=== PATIENT | female | born 1995 | race Caucasian/White ===

== ENCOUNTER 2017-08-12 11:56 | Emergency (ER) | payer OTHER ==
[~2017-08-12] VITALS: Ht 167.6 cm; Wt 54.2 kg
[~2017-08-12 11:56] MED LIST: MEDR150I INJ
[2017-08-12 11:58] VITALS: TEMP 36.4; Ht 167.6 cm; Wt 54.2 kg
[2017-08-12] MEDS ORDERED: KETOROLAC TROMETHAMINE 30 MG/ML VIAL IV STA (12:12)
[2017-08-12] MEDS ORDERED: ONDANSETRON INJ 2 MG/ML 2 ML VIAL IV STA ×2 (12:12→14:19)
[2017-08-12] MEDS ORDERED: SODIUM CHLORIDE 0.9% 1000ML 1,000 ML IV STA (12:12)
--- NOTE | 2017-08-12 12:29 | EMERGENCY ROOM VISIT NOTE ---
History Report prepared by Jose Luis: Akhil Hooper Under the Supervision of: Dr. Jared Carpenter M.D. First contact with patient: 12:02 Chief Complaint: ABDOMINAL PAIN Stated Complaint: ABDOMINAL PAIN, BACK PAIN Nursing Triage Summary: pt reports she peeing blood last week has bilat upper abd pain this week. sent here from pcp History of Present Illness The patient is a 22 year old white female with a history of appendicitis who presents to the Emergency Room with complaints of hematuria and waxing and waning abdominal pains that began this past weekend, 5 days ago. The patient states that she first noticed some blood in her urine this past weekend, and then developed abdominal pain. She states that her abdominal pain is present in the upper quadrants bilaterally, and radiates into her back intermittently. She has also been very nauseous and felt fevers/chills last night with cold sweats. The pain is worsened with movement and palpation. Her last menstrual period was 2 days ago and normal. She has no history of kidney stones. The patient did visit with Eulogio Collins where a urine analysis showed blood present. Source of History: patient Onset: 5 days Position: abdomen (Upper), other () Timing: waxes/wanes Modifying Factors (Worsening): movement, other (palpation) Associated Symptoms: + fevers, + chills, + urinary symptoms (Hematuria) Review of Systems See HPI for pertinent positives and negatives. A total of ten systems were reviewed and were otherwise negative. Past Medical & Surgical Medical Problems: (1) No Known Active Medical Problems Family History Patient reports no known family medical history. Social History Smoking Status: Never Smoker Marital Status: single Housing Status: lives with family Occupation Status: student Current/Historical Medications Scheduled Control Pills ( Control Pills), 1 TAB PO DAILY Spironolactone (Aldactone), 50 MG PO DAILY Tramadol Hcl (Ultram), 50 MG PO Q8H Scheduled PRN Ondansetron Hcl (Zofran), 4 MG PO Q8H PRN for Nausea Allergies Coded Allergies: No Known Allergies (Unverified , 08/12/17) Physical Exam Vital Signs Date Time Temp Pulse Resp B/P (MAP) Pulse Ox O2 Delivery O2 Flow Rate FiO2 08/12/17 16:54 70 18 107/66 98 Room Air 08/12/17 15:20 93 18 123/82 94 Room Air 08/12/17 14:21 84 19 132/87 100 Room Air 08/12/17 13:16 71 08/12/17 13:15 80 12 129/89 100 Room Air 08/12/17 11:58 36.4 86 18 123/69 98 Nasal Cannula Physical Exam GENERAL: Awake, alert, well-appearing, NAD HENT: Normocephalic, atraumatic. EYES: Normal conjunctiva. Sclera non-icteric. NECK: Supple. No nuchal rigidity. FROM. RESPIRATORY: CTAB, no rhonchi, wheezing, crackles CARDIAC: RRR, no MRG ABDOMEN: Soft, Upper quadrant TTP, BS+, Negative Rogers's. MSK: No chest wall TTP, no LE edema, Bilateral CVA TTP. NEURO: GCS 15, CN 2-12 intact, moves all 4s on command SKIN: No rash or jaundice noted. Medical Decision & Procedures ER Provider Diagnostic Interpretation: Radiology results as stated below per my review and radiologist interpretation: CT SCAN OF THE ABDOMEN AND PELVIS WITH IV CONTRAST CLINICAL HISTORY: Hematuria. Flank pain. Upper abdominal pain. COMPARISON STUDY: Abdominal CT dated 10/31/2014. TECHNIQUE: Following the IV administration of 92 cc of Optiray 320, CT scan of the abdomen and pelvis is performed from the lung bases to the proximal femora. Images are reviewed in the axial, sagittal, and coronal planes. IV contrast was administered without complication. A dose lowering technique was utilized adhering to the principles of ALARA. CT DOSE: 267.34 mGy.cm FINDINGS: Lung bases: The heart is normal in size and without pericardial effusion. The lung bases are clear. Liver: The contrast-enhanced liver is normal in size, contour, and attenuation. There is no intrahepatic biliary ductal dilatation. The hepatic veins and portal veins are patent. Gallbladder: Unremarkable. Spleen: Normal in size and attenuation. Pancreas: Unremarkable. Adrenal glands: Unremarkable. Kidneys: The contrast enhanced kidneys are normal in size and without hydronephrosis. The kidneys enhance symmetrically. Abdominal vasculature: The abdominal aorta is normal in course and caliber. Bowel: There is moderate colonic fecal retention. No bowel obstruction is seen. The appendix is not identified and reported surgically absent. Peritoneum: There is no intraperitoneal free air or abdominal ascites. There is a small fat-containing umbilical hernia. A naval piercing is noted. Lymphadenopathy: None. Pelvic viscera: The bladder, uterus, and adnexa are normal as visualized. There are small bilateral ovarian follicles. A tampon is in place. Skeletal structures: No lytic or blastic lesions are seen. IMPRESSION: There are no acute infectious or inflammatory findings in the abdomen or pelvis. Electronically signed by: Torey Gill M.D. 08/12/2017 2:03 PM Dictated Date/Time: 08/12/2017 1:49 PM ULTRASOUND RIGHT UPPER QUADRANT ABDOMEN CLINICAL HISTORY: Right upper quadrant abdominal pain. COMPARISON STUDY: Abdominal CT dated 08/12/2017. TECHNIQUE: Real-time, grayscale, and color flow sonography of the right upper quadrant of the abdomen was performed. Images are reviewed in the transverse and longitudinal planes. FINDINGS: Liver: The liver is normal in size and echotexture. There is no intrahepatic biliary ductal dilatation. The main portal vein is patent. Gallbladder: The gallbladder is normal in appearance. No gallstones are identified. There is no gallbladder wall thickening or pericholecystic fluid. A sonographic Rogers's sign is reportedly absent. The common bile duct measures up to 0.3 cm in diameter. Pancreas: Visualized portions of the pancreatic head are normal in appearance. The majority of the pancreas was not well visualized. The splenic vein is patent. Right kidney: Survey images of the right kidney demonstrate normal size and echotexture. There is no hydronephrosis. Ascites: None. IMPRESSION: No acute sonographic abnormality is identified in the right upper quadrant. No gallstones are seen. Electronically signed by: Torey Gill M.D. 08/12/2017 4:24 PM Dictated Date/Time: 08/12/2017 4:22 PM Laboratory Results 08/12/17 12:22 Red Blood Count 4.18, Mean Corpuscular Volume 90.7, Mean Corpuscular Hemoglobin 31.6, Mean Corpuscular Hemoglobin Concent 34.8, Mean Platelet Volume 9.4, Neutrophils (%) (Auto) 46.2, Lymphocytes (%) (Auto) 42.5, Monocytes (%) (Auto) 8.7, Eosinophils (%) (Auto) 2.1, Basophils (%) (Auto) 0.3, Neutrophils # (Auto) 2.70, Lymphocytes # (Auto) 2.48, Monocytes # (Auto) 0.51, Eosinophils # (Auto) 0.12, Basophils # (Auto) 0.02 08/12/17 12:22 Test 08/12/17 12:22 08/12/17 13:00 White Blood Count 5.84 K/uL (4.8-10.8) Red Blood Count 4.18 M/uL (4.2-5.4) Hemoglobin 13.2 g/dL (12.0-16.0) Hematocrit 37.9 % (37-47) Mean Corpuscular Volume 90.7 fL (80-100) Mean Corpuscular Hemoglobin 31.6 pg (25-34) Mean Corpuscular Hemoglobin Concent 34.8 g/dl (32-36) Platelet Count 264 K/uL (130-400) Mean Platelet Volume 9.4 fL (7.4-10.4) Neutrophils (%) (Auto) 46.2 % Lymphocytes (%) (Auto) 42.5 % Monocytes (%) (Auto) 8.7 % Eosinophils (%) (Auto) 2.1 % Basophils (%) (Auto) 0.3 % Neutrophils # (Auto) 2.70 K/uL (1.4-6.5) Lymphocytes # (Auto) 2.48 K/uL (1.2-3.4) Monocytes # (Auto) 0.51 K/uL (0.11-0.59) Eosinophils # (Auto) 0.12 K/uL (0-0.5) Basophils # (Auto) 0.02 K/uL (0-0.2) RDW Standard Deviation 40.9 fL (36.4-46.3) RDW Coefficient of Variation 12.3 % (11.5-14.5) Immature Granulocyte % (Auto) 0.2 % Immature Granulocyte # (Auto) 0.01 K/uL (0.00-0.02) Anion Gap 7.0 mmol/L (3-11) Est Creatinine Clear Calc Drug Dose 81.9 ml/min Estimated GFR () 101.8 Estimated GFR (Non- 87.9 BUN/Creatinine Ratio 9.7 (10-20) Calcium Level 8.9 mg/dl (8.5-10.1) Total Bilirubin 0.3 mg/dl (0.2-1) Direct Bilirubin < 0.1 mg/dl (0-0.2) Aspartate Amino Transf (AST/SGOT) 17 U/L (15-37) Alanine Aminotransferase (ALT/SGPT) 17 U/L (12-78) Alkaline Phosphatase 36 U/L (45-117) Total Protein 7.7 gm/dl (6.4-8.2) Albumin 3.8 gm/dl (3.4-5.0) Lipase 251 U/L (73-393) Urine Color YELLOW Urine Appearance CLEAR (CLEAR) Urine pH 7.0 (4.5-7.5) Urine Specific [place] 1.018 (1.000-1.030) Urine Protein NEG (NEG) Urine Glucose (UA) NEG (NEG) Urine Ketones NEG (NEG) Urine Occult Blood NEG (NEG) Urine Nitrite NEG (NEG) Urine Bilirubin NEG (NEG) Urine Urobilinogen NEG (NEG) Urine Leukocyte Esterase NEG (NEG) Urine Test NEG (NEG) Laboratory results reviewed by me Medications Administered Medications (Trade) Dose Ordered Sig/Cale Route Start Time Stop Time Status Last Admin Dose Admin Ondansetron HCl (Zofran Inj) 4 mg NOW STAT IV 08/12/17 12:12 08/12/17 12:14 DC 08/12/17 13:01 4 MG Sodium Chloride 1,000 ml @ 999 mls/hr Q1H1M STAT IV 08/12/17 12:12 08/12/17 13:12 DC 08/12/17 13:01 999 MLS/HR Ketorolac Tromethamine (Toradol Inj) 30 mg NOW STAT IV 08/12/17 12:12 08/12/17 12:14 DC 08/12/17 13:01 30 MG Morphine Sulfate (MoRPHine SULFATE INJ) 4 mg NOW STAT IV 08/12/17 13:45 08/12/17 13:46 DC 08/12/17 14:15 4 MG Ondansetron HCl (Zofran Inj) 4 mg STK-MED ONCE .ROUTE 08/12/17 14:15 08/12/17 14:16 DC 08/12/17 14:15 4 MG Metoclopramide HCl (Reglan Inj) 10 mg NOW STAT IV. 08/12/17 14:56 08/12/17 14:57 DC 08/12/17 15:15 10 MG Famotidine (Pepcid Tab) 20 mg NOW ONCE PO 08/12/17 15:15 08/12/17 15:16 DC 08/12/17 15:15 20 MG Al Hydroxide/Mg Hydroxide (Maalox Susp) 30 ml STK-MED ONCE .ROUTE 08/12/17 15:12 08/12/17 15:13 DC 08/12/17 15:15 30 ML Lidocaine HCl (Viscous Lidocaine 2% Soln) 20 ml STK-MED ONCE .ROUTE 08/12/17 15:12 08/12/17 15:13 DC 08/12/17 15:15 20 ML ED Course 1206: The patient was evaluated in room A12B. A complete history and physical exam was performed. 1212: Ordered Toradol 30 mg IV, Sodium Chloride 1000 mL @ 999 mL/hr IV, Zofran 4 mg IV. 1345: Ordered Morphine Sulfate 4 mg IV. 1334: I checked on the patient at this time. She is not feeling any better. 1417: I checked on the patient. She if felling well. She will be PO challenged. 1419: Zofran 4 mg IV. 1642: I reevaluated the patient. Discussed results and discharge instructions: she verbalized understanding and agreement. The patient is ready for discharge. Medical Decision Differential diagnosis: Etiologies such as renal colic, appendicitis, diverticulitis, mesenteric ischemia, aortic pathology, infections, inflammatory bowel disease, PUD, biliary pathology, UTI, as well as others were entertained. Patient was seen and evaluated the bedside. Patient was [facility] at [facility] and was referred here. Patient has had some noted hematuria, flank pain, upper abdominal pain with associated nausea. Patient states that she completed her LMP approximate 2 days prior. Patient denies any recent trauma. Patient did have blood work completed, pain and nausea control, and CT the abdomen pelvis. Of note the patient did have a prior appendectomy. Patient's blood work is fairly unremarkable. White blood cell count was within normal limits. Patient has normal kidney function. Patient had a urinalysis that was negative for blood or infection. Urine test also negative. We discussed the results with the patient. I discussed with her that were not trying to realize and minimize her discomfort however there is nothing medical or surgical that requires her to stay in hospital. Given the fact that she is a fairly normal gallbladder at least on CT with no elevations in her LFTs or bilirubin I do not believe that she requires gallbladder ultrasound. Patient has a negative urine. Patient was able to tolerate p.o. Of note the patient denied any heavy lifting recent strains or sprains. Given the normal kidney function less likely rhabdo. Patient and family were still concerned about possible gallbladder disease even though the patient does not have elevated LFTs or any concerning signs seen on CT. The patient is also not fit the mold she is fairly thin and young. Patient did have a gallbladder ultrasound that showed no evidence of any cholelithiasis, choledocholithiasis, or cholecystitis. Patient was informed of these findings. Patient told she likely has a viral illness and should eat a bland diet and advance as tolerated. Patient was also given recommendations for outpatient and [id number] treatment. Patient was deemed suitable for outpatient follow-up and treatment at this time. Patient was given strict follow-up, discharge, and return precautions. All questions were answered. Patient was deemed suitable for outpatient follow- up at this time. Patient agreed with the plan of care and was safely discharged home. Medication Reconcilliation Current Medication List: was personally reviewed by me Blood Pressure Screening Patient's blood pressure: Normal blood pressure Impression Primary Impression: Flank pain Additional Impression: Abdominal pain Scribe Attestation The scribe's documentation has been prepared under my direction and personally reviewed by me in its entirety. I confirm that the note above accurately reflects all work, treatment, procedures, and medical decision making performed by me. Departure Information Dispostion Home / Self-Care Prescriptions Tramadol Hcl (ULTRAM) 50 Mg Tab 50 MG PO Q8H, #12 TAB PRN PAIN Prov: Jared Carpenter M.D. 08/12/17 Ondansetron Hcl (ZOFRAN) 4 Mg Tab 4 MG PO Q8H Y for Nausea, #12 TAB Prov: Jared Carpenter M.D. 08/12/17 Referrals Vivek Pena DO (PCP) Patient Instructions ED Flank Pain Uncertain Cause, My [facility] Additional Instructions Please return to the emergency department if you have worsening or recurrent symptoms not amenable to at-home treatment. Please call for a follow-up appointment with her primary care physician. Please take your medications as prescribed. If you have other concerns and/or complaints please feel free to also call your primary care physician's office or return the ED for further evaluation, management, and treatment. You received narcotic or benzodiazepene medication while in the emergency room today. This is an addictive medication that may cause drowziness as well as constipation. Do not drive, operate heavy machinery, or drink alcohol under the influence of this medication. You may take 600 mg Ibuprofen every 6 hours as needed for pain with food for no more than 2 consecutive days. You may take tylenol 1000 mg every 6 hours as needed for pain. You may take motrin and tylenol separately or at the same time. You may take the tramadol if he still have discomfort. Please consider a bland diet. Advance as tolerated. Try Pepcid 20mg twice daily. You may also try Tums or Maalox to help. Take your medications as prescribed. You have been examined and treated today on an emergency basis only. This is not a substitute for, or an effort to provide, complete comprehensive medical care. It is impossible to recognize and treat all injuries or illnesses in a single emergency department visit. It is therefore important that you follow up closely with [facility], your PCP, and/or your specialist(s). Call as soon as possible for an appointment. Thank you for your time and consideration. I look forward to speaking with you again soon. Please don't hesitate to call us if you have any questions. Problem Qualifiers Additional Impression: Abdominal pain Abdominal location: upper abdomen, unspecified Qualified Codes: R10.10 - Upper abdominal pain, unspecified
[2017-08-12] MEDS ORDERED: OPTIRAY 320 IV PRN (12:30)
[2017-08-12 12:46] LABS: BASO % 0.3 %; BASO ABS # 0.02 K/uL (0-0.2); EOS % 2.1 %; EOS ABS # 0.12 K/uL (0-0.5); HEMATOCRIT 37.9 % (37-47); HEMOGLOBIN 13.2 g/dL (12.0-16.0); IG# 0.01 K/uL (0.00-0.02); LYMPH % 42.5 %; LYMPH ABS # 2.48 K/uL (1.2-3.4); MEAN CELL VOLUME 90.7 fL (80-100); MEAN CORPUSCULAR HEMOGLOBIN 31.6 pg (25-34); MEAN CORPUSCULAR HGB CONC 34.8 g/dl (32-36); MEAN PLATELET VOLUME 9.4 fL (7.4-10.4); MONO % 8.7 %; MONO ABS # 0.51 K/uL (0.11-0.59); NEUT % 46.2 %; PLATELET COUNT 264 K/uL (130-400); RED CELL DISTRIBUTION WIDTH CV 12.3 % (11.5-14.5); RED CELL DISTRIBUTION WIDTH SD 40.9 fL (36.4-46.3); WHITE BLOOD COUNT 5.84 K/uL (4.8-10.8)
[2017-08-12] MEDS ORDERED: SPIR50TA2 PO (12:48)
[2017-08-12] MEDS ORDERED: BCPILLS PO (12:48)
[2017-08-12 13:04] LABS: ALBUMIN 3.8 gm/dl (3.4-5.0); ALT/SGPT 17 U/L (12-78); AST/SGOT 17 U/L (15-37); BLOOD UREA NITROGEN 9 mg/dl (7-18); CALCIUM 8.9 mg/dl (8.5-10.1); CARBON DIOXIDE 25 mmol/L (21-32); CREATININE 0.93 mg/dl (0.60-1.20); GLUCOSE 78 mg/dl (70-99); LIPASE 251 U/L (73-393); POTASSIUM 3.5 mmol/L (3.5-5.1); SODIUM 137 mmol/L (136-145)
[2017-08-12 13:07] LABS: ALKALINE PHOSPHATASE 36 U/L (45-117); TOTAL PROTEIN 7.7 gm/dl (6.4-8.2)
[2017-08-12] MEDS ORDERED: MoRPHine SULFATE 4 MG/ML 1 ML CARP\\VIAL IV STA (13:45)
--- NOTE | 2017-08-12 14:05 | DIAGNOSTIC IMAGING REPORT ---
CT SCAN OF THE ABDOMEN AND PELVIS WITH IV CONTRAST CLINICAL HISTORY: Hematuria. Flank pain. Upper abdominal pain. COMPARISON STUDY: Abdominal CT dated 10/31/2014. TECHNIQUE: Following the IV administration of 92 cc of Optiray 320, CT scan of the abdomen and pelvis is performed from the lung bases to the proximal femora. Images are reviewed in the axial, sagittal, and coronal planes. IV contrast was administered without complication. A dose lowering technique was utilized adhering to the principles of ALARA. CT DOSE: 267.34 mGy.cm FINDINGS: Lung bases: The heart is normal in size and without pericardial effusion. The lung bases are clear. Liver: The contrast-enhanced liver is normal in size, contour, and attenuation. There is no intrahepatic biliary ductal dilatation. The hepatic veins and portal veins are patent. Gallbladder: Unremarkable. Spleen: Normal in size and attenuation. Pancreas: Unremarkable. Adrenal glands: Unremarkable. Kidneys: The contrast enhanced kidneys are normal in size and without hydronephrosis. The kidneys enhance symmetrically. Abdominal vasculature: The abdominal aorta is normal in course and caliber. Bowel: There is moderate colonic fecal retention. No bowel obstruction is seen. The appendix is not identified and reported surgically absent. Peritoneum: There is no intraperitoneal free air or abdominal ascites. There is a small fat-containing umbilical hernia. A naval piercing is noted. Lymphadenopathy: None. Pelvic viscera: The bladder, uterus, and adnexa are normal as visualized. There are small bilateral ovarian follicles. A tampon is in place. Skeletal structures: No lytic or blastic lesions are seen. IMPRESSION: There are no acute infectious or inflammatory findings in the abdomen or pelvis. Electronically signed by: Torey Gill M.D. 08/12/2017 2:03 PM Dictated Date/Time: 08/12/2017 1:49 PM
[2017-08-12] MEDS ORDERED: ONDANSETRON INJ 2 MG/ML 2 ML VIAL ONE (14:15)
[2017-08-12] MEDS ORDERED: TRAM-453 PO (14:40)
[2017-08-12] MEDS ORDERED: ONDA4TAB46 PO (14:40)
[2017-08-12] MEDS ORDERED: METOCLOPRAMIDE HCL INJ 5 MG/ML 2 ML VIAL IV. STA (14:56)
[2017-08-12] MEDS ORDERED: GI COCKTAIL PO STA (15:01)
[2017-08-12] MEDS ORDERED: ALUMINUM/MAGNESIUM SUSP 30 ML UDC ONE (15:12)
[2017-08-12] MEDS ORDERED: LIDOCAINE HCL 2% VISC SOLN 20 ML UDC ONE (15:12)
[2017-08-12] MEDS ORDERED: FAMOTIDINE 20 MG TAB PO ONE (15:15)
--- NOTE | 2017-08-12 16:25 | DIAGNOSTIC IMAGING REPORT ---
ULTRASOUND RIGHT UPPER QUADRANT ABDOMEN CLINICAL HISTORY: Right upper quadrant abdominal pain. COMPARISON STUDY: Abdominal CT dated 08/12/2017. TECHNIQUE: Real-time, grayscale, and color flow sonography of the right upper quadrant of the abdomen was performed. Images are reviewed in the transverse and longitudinal planes. FINDINGS: Liver: The liver is normal in size and echotexture. There is no intrahepatic biliary ductal dilatation. The main portal vein is patent. Gallbladder: The gallbladder is normal in appearance. No gallstones are identified. There is no gallbladder wall thickening or pericholecystic fluid. A sonographic Rogers's sign is reportedly absent. The common bile duct measures up to 0.3 cm in diameter. Pancreas: Visualized portions of the pancreatic head are normal in appearance. The majority of the pancreas was not well visualized. The splenic vein is patent. Right kidney: Survey images of the right kidney demonstrate normal size and echotexture. There is no hydronephrosis. Ascites: None. IMPRESSION: No acute sonographic abnormality is identified in the right upper quadrant. No gallstones are seen. Electronically signed by: Torey Gill M.D. 08/12/2017 4:24 PM Dictated Date/Time: 08/12/2017 4:22 PM
[2017-08-12 16:54] VITALS: BP 107/66; PULSE 70; O2SAT 98
== END 2017-08-12 17:09 | disposition home or self-care (01) ==
LOC: C.EDB 11:58 → C.EDA 17:09
DX: R10.11 Right upper quadrant pain (principal); R10.12 Left upper quadrant pain; R50.9 Fever, unspecified; R11.0 Nausea; R31.9 Hematuria, unspecified; Z87.19 Personal history of other diseases of the digestive system; Z79.3 Long term (current) use of hormonal contraceptives

== ENCOUNTER 2019-01-20 10:55 | Inpatient (IN) ==
[2019-01-20] MEDS ORDERED: DINOPROSTONE 10 MG INSERT PV ONE (19:56)
[2019-01-20] MEDS ORDERED: OXYTOCIN 30 UNITS/500 ML BAG IV PRN (19:56)
[2019-01-20 20:17] LABS: Hematocrit (blood only) 31.9 % (37-47); Mean Corpuscular Volume 94.1 fL (80-100); Mean Platelet Volume 9.8 fL (7.4-10.4); Platelet Count 147 K/uL (130-400); RDW Coefficient of Variation 13.2 % (11.5-14.5); RDW Standard Deviation 45.7 fL (36.4-46.3); Red Blood Count 3.39 M/uL (4.2-5.4); White Blood Count 12.55 K/uL (4.8-10.8)
--- NOTE | 2019-01-20 20:22 | Labor Progress Brief Note ---
Date of Service January 20, 2019 Met pt and family Reviewed PN Course Induction for PUPPS FHR; CAT1' CTx; Minimal VE; 2/50/-2 Cervidil #1 placed Results & Data Vital Signs (Past 12 Hours) Vital Signs Temp Pulse Resp BP 01/20/19 20:13 75 121/81 01/20/19 19:10 37.0 C 18 01/20/19 19:09 37.0 C 87 18 120/78 01/20/19 19:05 87 120/78
[2019-01-20 20:58] LABS: Mean Corpuscular Hgb Conc 34.5 g/dL (32-36)
--- NOTE | 2019-01-20 22:48 | History and Physical Report ---
DATE OF ADMISSION: 01/20/2019 HISTORY OF PRESENT ILLNESS: The patient is a 23-year-old G1, P0, due date 01/27/2019 making her 39 weeks today. The patient is here on labor and delivery for induction of labor because of PUPPS. On arrival to labor and delivery, she has no shortness of breath, no chills, no fever. heart rate is category 1. course has been uncomplicated except for history of PUPPS in the last week. She is now on steroids. LABS: Blood type A positive, antibody negative, rubella immune, GBS negative. PAST MEDICAL HISTORY: No history of diabetes, hypertension, or asthma. 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 The patient has had a history of ovarian cyst and irregular periods. PAST SURGICAL HISTORY: The patient has had EGD, colonoscopy, and appendectomy. The patient also has history of dental surgeries in the past. ALLERGIES: THE PATIENT IS ALLERGIC TO AMOXICILLIN. SOCIAL HISTORY: The patient denies smoking, drug, or alcohol use. FAMILY HISTORY: Noncontributory. PHYSICAL EXAMINATION: GENERAL: Well-developed, well-nourished white female in no acute distress. HEART: S1, S2, regular rhythm and rate. LUNGS: Clear to auscultation bilaterally. ABDOMEN: Gravid. EXTREMITIES: No cyanosis, clubbing or edema. ASSESSMENT AND PLAN: A 33-year-old G1, P0 at 39 weeks, here for induction of labor due to PUPPS. Patient has been being admitted and induction started. We anticipate vaginal delivery. MTDD
--- NOTE | 2019-01-21 10:28 | Obstetrical Progress Note ---
Date of Service January 21, 2019 Physical Exam Genitourinary: Manual OB Exam: + cervical dilation 1 cm, + cervical effacement 60% and + station high OB Exam Monitor Tracing: + external FHT monitor used, + external uterine monitor used, + category I and + normal FHT variability will start Cytotec 50 mcg orally for cervical ripening Results & Data Vital Signs (Past 12 Hours) Vital Signs Temp Pulse Resp BP 01/21/19 10:06 100 H 129/78 01/21/19 06:58 36.9 C 20 01/21/19 06:56 90 121/78 01/21/19 03:48 37.0 C 85 16 109/53 L 01/20/19 23:39 36.5 C 75 18 127/85
[2019-01-21] MEDS: miSOPROStol 50 MCG TAB PO SCH ×3 (11:03→19:31)
[2019-01-21] MEDS ORDERED: BUTORPHANOL TARTRATE 1 MG/ML VIAL IV PRN (23:25)
[2019-01-21] MEDS: LACTATED RINGER'S 1,000 ML IV PRN (23:45)
[2019-01-22] MEDS: miSOPROStol 50 MCG TAB PO SCH ×4 (00:07→11:24)
[2019-01-22] MEDS ORDERED: fentaNYL citrate 100 MCG/2 ML VIAL ONE (02:08)
[2019-01-22] MEDS ORDERED: fentaNYL 2MCG/ML ROPIV 1.25MG/ML 100 ML BAG EPI ONE (02:08)
[2019-01-22] MEDS ORDERED: BUPIVACAINE 0.25% 30 ML VIAL ONE (02:08)
[2019-01-22] MEDS ORDERED: ePHEDrine sulfate 50 MG/ML AMP ONE (02:08)
[2019-01-22] MEDS ORDERED: PROMETHAZINE HCL 6.25 MG in SODIUM CHLORIDE 0.9% 50 ML IV PRN (03:19)
[2019-01-22] MEDS ORDERED: DiphenhydrAMINE HCL 50 MG/ML VIAL IV PRN (03:19)
[2019-01-22] MEDS ORDERED: NALOXONE HCL 1 MG in SODIUM CHLORIDE 0.9% 1000ML 1,000 ML IV PRN (03:19)
[2019-01-22] MEDS ORDERED: NALBUPHINE HCL INJ 10 MG/ML AMP IV PRN (03:19)
[2019-01-22] MEDS ORDERED: NALOXONE HCL 0.4 MG/1 ML VIAL/CARP IV PRN (03:19)
[2019-01-22] MEDS ORDERED: fentaNYL 2MCG/ML ROPIV 1.25MG/ML 100 ML BAG EPI PRN (03:19)
[2019-01-22] MEDS ORDERED: ONDANSETRON INJ 2 MG/ML 2 ML VIAL IV PRN (03:19)
[2019-01-22] MEDS ORDERED: ePHEDrine sulfate 50 MG/ML AMP IV PRN (03:19)
--- NOTE | 2019-01-22 03:22 | Anesthesiology Consultation ---
Date of Service January 22, 2019 @ 39.2 [facility] Assessment & Plan (1) Encounter for pre-operative examination: Chart Review Chart Review: Patient NOT seen in Pre Admission Testing and Acceptable Risk for Labor Epidural Consults Requested none ASA ASA2 Proposed Anesthesia Anesthesia Type: Labor Epidural Risk / Benefits Reviewed With: PT / POA / Parent / Guardian, Accepts Plan and Informed Consent Obtained History Height/Weight Height: 5 ft 6 in Weight: 73.936 kg Allergies Allergy/AdvReac Type Severity Reaction Status Date / Time amoxicillin AdvReac Vomiting Verified 01/20/19 19:07 Medications Home Medications Medication Instructions Recorded Confirmed Last Taken vit [id number] 1 tab PO DAILY 09/15/18 01/20/19 01/19/19 21:00 [ + DHA] prednisone 10 mg PO BID 01/20/19 01/20/19 01/19/19 21:00 Active Medications Generic Name Dose Route Start Last Admin Trade Name Freq PRN Reason Stop Dose Admin Butorphanol Tartrate 1 mg 01/21/19 23:25 01/21/19 23:45 Stadol IV 02/20/19 23:24 1 mg ONCE PRN Administration Pain Lactated Ringer's 1,000 mls @ 125 mls/hr 01/20/19 19:56 01/22/19 02:35 Lr IV 01/22/19 19:55 125 mls/hr .Q8H PRN Infusion L&D Protocol Protocol Misoprostol 50 mcg 01/21/19 11:00 01/22/19 00:07 Cytotec PO 02/20/19 10:59 50 mcg Q4H KARLA Administration NPO Date Last Intake of Fluids: 01/22/19 Time Last Intake of Fluids: 01:00 Date Last Intake of Solids: 01/20/19 Time Last Intake of Solids: 19:00 Past Medical History Medical History H/O endoscopy Normal colonoscopy [place] teeth extracted Exercise / Class Metabolic Activity II 4-5 Yardwork/Stairs/Walk up hill Past Surgical History Surgical History H/O dilation and curettage Hx of appendectomy Past Anesthesia History No Hx of Anesthesia Complications and No Family Hx of Anesthesia Complications History of PONV No Hx of PONV and No Hx of Motion Sickness Social History Smoking Status: Never smoker Hx Alcohol Use: No Hx Substance Use: No substance use type: does not use Physical Exam Vital Signs Last Vital Signs Temp 36.9 C 01/21/19 23:40 Pulse 93 H 01/22/19 03:19 Resp 18 01/21/19 23:40 BP 136/72 01/22/19 03:19 Pulse Ox 98 01/22/19 03:17 ENMT Mouth: no dentition abnormality Thyromental Distance: > or= 3.5 Finger Breadths Mallampati Class: II Neck normal visual inspection Respiratory normal respiratory effort Auscultation: lungs clear to auscultation bilaterally Cardiovascular Rate/Rhythm: regular rate and regular rhythm Psychiatric Orientation: alert Testing Laboratory Results 01/20/19 20:07
[2019-01-22] MEDS: LACTATED RINGER'S 1,000 ML IV PRN ×3 (04:38→14:46)
[2019-01-22] MEDS ORDERED: OXYTOCIN 30 UNITS/500 ML BAG IV PRN ×2 (07:12→17:02)
--- NOTE | 2019-01-22 12:43 | Obstetrical Progress Note ---
Date of Service January 22, 2019 Physical Exam Genitourinary: Manual OB Exam: + cervical dilation 4 cm, + cervical effacement 80% and + station -2 OB Exam Monitor Tracing: + external FHT monitor used, + external uterine monitor used, + category I and + normal FHT variability Results & Data Vital Signs (Past 12 Hours) Vital Signs Temp Pulse Resp BP Pulse Ox 01/22/19 12:37 80 126/63 01/22/19 12:36 78 98 01/22/19 12:31 84 97 01/22/19 12:26 73 97 01/22/19 12:23 73 127/69 01/22/19 12:21 73 97 01/22/19 12:16 76 96 01/22/19 12:11 78 96 01/22/19 12:08 74 123/67 01/22/19 12:06 73 96 01/22/19 12:01 76 97 01/22/19 11:56 86 97 01/22/19 11:53 76 126/63 01/22/19 11:51 81 97 01/22/19 11:46 79 97 01/22/19 11:41 76 97 01/22/19 11:38 75 124/64 01/22/19 11:36 77 97 01/22/19 11:31 76 97 01/22/19 11:26 77 96 01/22/19 11:24 77 121/68 01/22/19 11:21 78 96 01/22/19 11:16 83 97 01/22/19 11:11 101 H 98 01/22/19 11:07 81 119/58 L 01/22/19 11:06 85 96 01/22/19 11:01 84 97 01/22/19 10:56 79 97 01/22/19 10:53 37.1 C 86 20 124/59 L 01/22/19 10:51 85 98 01/22/19 10:46 91 H 98 01/22/19 10:41 99 H 99 01/22/19 10:38 82 121/59 L 01/22/19 10:36 87 97 01/22/19 10:31 79 97 01/22/19 10:26 92 H 97 01/22/19 10:22 83 116/58 L 01/22/19 10:21 80 98 01/22/19 10:16 80 97 01/22/19 10:11 81 96 01/22/19 10:07 78 115/64 01/22/19 10:06 75 97 01/22/19 10:01 75 97 01/22/19 09:56 78 97 01/22/19 09:52 106 H 109/63 01/22/19 09:51 92 H 97 01/22/19 09:46 99 H 97 01/22/19 09:41 88 97 01/22/19 09:37 93 H 111/61 01/22/19 09:36 102 H 97 01/22/19 09:31 97 H 97 01/22/19 09:26 94 H 96 01/22/19 09:23 82 116/61 01/22/19 09:21 91 H 97 01/22/19 09:16 92 H 97 01/22/19 09:11 84 97 01/22/19 09:07 80 110/58 L 01/22/19 09:06 81 96 01/22/19 09:01 89 97 01/22/19 08:56 88 97 01/22/19 08:52 97 H 108/64 01/22/19 08:51 93 H 96 01/22/19 08:46 97 H 97 01/22/19 08:41 84 96 01/22/19 08:39 102 H 106/69 01/22/19 08:36 79 95 01/22/19 08:31 84 97 01/22/19 08:26 87 98 01/22/19 08:22 96 H 115/67 01/22/19 08:21 80 97 01/22/19 08:16 104 H 98 01/22/19 08:11 110 H 97 01/22/19 08:07 93 H 114/65 01/22/19 08:02 87 98 01/22/19 07:57 79 97 01/22/19 07:53 83 117/55 L 01/22/19 07:52 91 H 98 01/22/19 07:47 97 H 97 01/22/19 07:42 91 H 97 01/22/19 07:37 99 H 114/57 L 97 01/22/19 07:32 83 97 01/22/19 07:27 96 H 98 01/22/19 07:23 93 H 117/63 01/22/19 07:22 94 H 99 01/22/19 07:17 107 H 96 01/22/19 07:12 84 97 01/22/19 07:08 82 115/73 01/22/19 07:07 80 97 01/22/19 07:02 80 96 01/22/19 07:00 20 01/22/19 06:57 111 H 97 01/22/19 06:52 81 114/57 L 97 01/22/19 06:47 80 97 01/22/19 06:42 88 97 01/22/19 06:37 90 108/56 L 97 01/22/19 06:32 95 H 97 01/22/19 06:30 18 01/22/19 06:27 94 H 97 01/22/19 06:22 95 H 107/57 L 97 01/22/19 06:17 95 H 96 01/22/19 06:12 89 96 01/22/19 06:07 82 113/55 L 96 01/22/19 06:02 82 96 01/22/19 06:00 18 01/22/19 05:57 82 97 01/22/19 05:52 90 113/51 L 98 01/22/19 05:47 99 H 98 01/22/19 05:45 36.9 C 01/22/19 05:42 87 97 01/22/19 05:37 71 97 01/22/19 05:32 77 97 01/22/19 05:30 18 01/22/19 05:27 80 96 01/22/19 05:26 72 108/60 01/22/19 05:22 84 97 01/22/19 05:17 81 96 01/22/19 05:12 78 96 01/22/19 05:09 73 108/57 L 01/22/19 05:07 76 96 01/22/19 05:02 76 97 01/22/19 05:00 16 01/22/19 04:57 78 97 01/22/19 04:56 73 109/54 L 01/22/19 04:52 84 96 01/22/19 04:47 78 96 01/22/19 04:42 71 97 01/22/19 04:39 82 110/61 01/22/19 04:37 88 98 01/22/19 04:32 80 97 01/22/19 04:30 18 01/22/19 04:27 73 97 01/22/19 04:26 70 106/59 L 01/22/19 04:22 81 97 01/22/19 04:17 89 97 01/22/19 04:12 72 98 01/22/19 04:09 78 110/65 01/22/19 04:07 82 97 01/22/19 04:02 77 97 01/22/19 04:00 18 01/22/19 03:57 85 117/66 97 01/22/19 03:52 79 98 01/22/19 03:47 85 97 01/22/19 03:45 16 01/22/19 03:42 83 97 01/22/19 03:39 97 H 118/69 01/22/19 03:37 87 97 01/22/19 03:34 107 H 120/71 01/22/19 03:32 102 H 98 01/22/19 03:30 16 01/22/19 03:29 107 H 123/65 01/22/19 03:27 104 H 98 01/22/19 03:24 100 H 122/72 01/22/19 03:22 111 H 100 01/22/19 03:19 93 H 136/72 01/22/19 03:17 102 H 98 01/22/19 03:16 100 H 117/74 01/22/19 03:15 16 01/22/19 03:14 98 H 120/75 01/22/19 03:12 89 126/77 98 01/22/19 03:07 97 H 98 01/22/19 03:02 97 H 99 01/22/19 02:57 132 H 99 01/22/19 02:25 36.9 C 18 01/22/19 02:24 97 H 142/96 H 01/22/19 01:10 87 98 01/22/19 01:05 81 98 01/22/19 01:00 76 96 01/22/19 00:55 76 95 01/22/19 00:50 86 96 01/22/19 00:45 70 97
--- NOTE | 2019-01-22 16:51 | Delivery Summary ---
Vaginal Delivery Summary Date of Service January 22, 2019 Supervising Physician Co-Signing Physician Notes Delivery Note live female over intact perineum with tight nuchal cord x1 reduced at delivery. Delayed cord clamping followed by cord blood and spontaneous delivery of intact placenta. Small first degree tear repaired with [id number] 3/0 Vicryl suture. EBL 200 ml. Final sponge needle and instrument count are correct. Mom and baby stable.
[2019-01-22] MEDS ORDERED: BISACODYL 10 MG SUPP PR PRN (17:02)
[2019-01-22] MEDS ORDERED: BENZOCAINE 20% AER SPR 82.5 GM CAN EXT PRN (17:02)
[2019-01-22] MEDS ORDERED: DIPHTHERIA/TETANUS/PERTUSSIS 0.5 ML SYR/VIAL IM ONE (17:02)
[2019-01-22] MEDS ORDERED: HYDROCORTISONE ACETATE 25 MG SUPP PR PRN (17:02)
[2019-01-22] MEDS ORDERED: SUPERCREAM 0.870% 15 GM JAR EXT PRN (17:02)
--- NOTE | 2019-01-22 18:32 | Anesthesia Procedure Note ---
Date of Service January 22, 2019 Anesthesia Post Epidural Note Vital Signs Vital Signs: Temp Pulse Resp BP Pulse Ox 36.9 C 90 20 138/92 98 01/22/19 15:22 01/22/19 18:22 01/22/19 15:22 01/22/19 18:22 01/22/19 16:41 Pain Intensity Bilateral Abdomen: Pain Intensity: 3 Notes Mental Status: alert / awake / arousable Nausea / Vomiting: adequately controlled Pain: adequately controlled Airway Patency, RR, SpO2: stable & adequate BP & HR: stable & adequate Hydration State: stable & adequate Neuraxial Anesthesia: was administered and sensory block is resolving Anesthetic Complications: no major complications apparent and Pt Satisfied with anesthetic care Epidural: Removed without complications and With tip intact
[2019-01-22] MEDS: IBUPROFEN 600 MG TAB PO PRN ×2 (19:01→23:54)
[2019-01-22] MEDS: predniSONE 10 MG TABLET PO SCH (20:31)
[2019-01-22] MEDS: DOCUSATE SODIUM 100 MG CAP PO SCH (20:31)
[2019-01-23] MEDS: IBUPROFEN 600 MG TAB PO PRN ×3 (04:56→19:56)
[2019-01-23] MEDS: ACETAMINOPHEN 325 MG TAB PO PRN ×2 (06:28→17:10)
[2019-01-23 06:45] LABS: Hematocrit (blood only) 29.7 % (37-47); Hemoglobin 10.2 g/dL (12.0-16.0); Mean Corpuscular Hgb Conc 34.3 g/dL (32-36); Mean Corpuscular Volume 94.6 fL (80-100); Mean Platelet Volume 9.8 fL (7.4-10.4); Platelet Count 160 K/uL (130-400); RDW Coefficient of Variation 13.4 % (11.5-14.5); RDW Standard Deviation 46.2 fL (36.4-46.3); Red Blood Count 3.14 M/uL (4.2-5.4); White Blood Count 15.35 K/uL (4.8-10.8)
[2019-01-23] MEDS ORDERED: PRENATAL VIT IRON FOLIC DHA PO SCH (09:00)
[2019-01-23] MEDS: DOCUSATE SODIUM 100 MG CAP PO SCH ×2 (09:02→21:01)
[2019-01-23] MEDS: PRENATAL VITAMIN 1 TAB PO SCH (09:02)
[2019-01-23] MEDS: predniSONE 10 MG TABLET PO SCH ×2 (09:02→21:02)
--- NOTE | 2019-01-23 09:10 | Obstetrical Progress Note ---
Date of Service January 23, 2019 Subjective Patient is seen and examined. She feels well, no complaints. Ambulating without dizziness Voiding without difficulty Tolerating regular diet with out N&V Bleeding is minimal No fever/ chills/ CP/ SOB/ N&V/ Leg pain Breast feeding without problems Vital Signs Temp Pulse Pulse Resp BP Pulse Ox 01/23/19 07:20 37.0 C 69 15 114/71 97 01/23/19 05:00 36.6 C 82 20 121/73 97 01/23/19 00:00 37 C 79 20 117/72 96 Lab Results 01/20/19 01/23/19 Range/Units 20:07 06:23 WBC 12.55 H 15.35 H (4.8-10.8) K/uL RBC 3.39 L 3.14 L (4.2-5.4) M/uL Hgb 11.0 L 10.2 L (12.0-16.0) g/dL Hct 31.9 L 29.7 L (37-47) % MCV 94.1 94.6 (80-100) fL MCH 32.4 32.5 (25-34) pg MCHC 34.5 34.3 (32-36) g/dL RDW Std Deviation 45.7 46.2 (36.4-46.3) fL RDW Coeff of Nita 13.2 13.4 (11.5-14.5) % Plt Count 147 160 (130-400) K/uL MPV 9.8 9.8 (7.4-10.4) fL PE: General: Alert, orientedx3, NAD Abd: soft, NT, fundus firm, below Umbilicus Perineum intact, Lochia rubra minimal Ext; NT, no edema AP: 23 yo s/p , ppd# 1 VSS Afebrile doing well Continue routine care All questions were answered D/C home tomorrow Results & Data Vital Signs (Past 12 Hours) Vital Signs Temp Pulse Pulse Resp BP Pulse Ox 01/23/19 07:20 37.0 C 69 15 114/71 97 01/23/19 05:00 36.6 C 82 20 121/73 97 01/23/19 00:00 37 C 79 20 117/72 96
[2019-01-23] MEDS ORDERED: BISACODYL 5 MG TABEC PO SCH (20:00)
[2019-01-24] MEDS: IBUPROFEN 600 MG TAB PO PRN (00:36)
[2019-01-24 07:11] LABS: Basophils # (auto) 0.02 K/uL (0-0.2); Basophils % (auto) 0.2 %; Eosinophils # (auto) 0.15 K/uL (0-0.5); Eosinophils % (auto) 1.1 %; Hematocrit (blood only) 29.7 % (37-47); Hemoglobin 10.2 g/dL (12.0-16.0); Immature Granulocytes # (auto) 0.23 K/uL (0.00-0.02); Immature Granulocytes % (auto) 1.7 %; Lymphocytes # (auto) 2.17 K/uL (1.2-3.4); Lymphocytes % (auto) 16.4 %; Mean Corpuscular Hgb Conc 34.3 g/dL (32-36); Mean Corpuscular Volume 95.2 fL (80-100); Monocytes # (auto) 1.01 K/uL (0.11-0.59); Monocytes % (auto) 7.6 %; Neutrophils # (auto) 9.65 K/uL (1.4-6.5); Platelet Count 175 K/uL (130-400); RDW Coefficient of Variation 13.4 % (11.5-14.5); RDW Standard Deviation 46.1 fL (36.4-46.3); Red Blood Count 3.12 M/uL (4.2-5.4); White Blood Count 13.23 K/uL (4.8-10.8)
[2019-01-24] MEDS: PRENATAL VITAMIN 1 TAB PO SCH (08:18)
[2019-01-24] MEDS: DOCUSATE SODIUM 100 MG CAP PO SCH (08:18)
[2019-01-24] MEDS: predniSONE 10 MG TABLET PO SCH (08:19)
--- NOTE | 2019-01-24 08:56 | Obstetrical Progress Note ---
Date of Service January 24, 2019 Subjective doing fine plans for discharge Physical Exam Constitutional: WD/WN, vitals as above comfortable abdomen soft non- tender fundus firm no edema neg Sara's for d/c Results & Data Vital Signs (Past 12 Hours) Vital Signs Temp Pulse Pulse Resp BP Pulse Ox 01/24/19 07:48 36.5 C 64 20 114/73 97 01/24/19 00:30 36.6 C 67 16 114/70 97 Laboratory Results 01/20/19 01/23/19 01/24/19 20:07 06:23 06:14 WBC 12.55 H 15.35 H 13.23 H RBC 3.39 L 3.14 L 3.12 L Hgb 11.0 L 10.2 L 10.2 L Hct 31.9 L 29.7 L 29.7 L MCV 94.1 94.6 95.2 MCH 32.4 32.5 32.7 MCHC 34.5 34.3 34.3 RDW Std Deviation 45.7 46.2 46.1 RDW Coeff of Nita 13.2 13.4 13.4 Plt Count 147 160 175 MPV 9.8 9.8 10.0 Immature Gran % (Auto) 1.7 Neut % (Auto) 73.0 Lymph % (Auto) 16.4 [place] % (Auto) 7.6 Eos % (Auto) 1.1 Baso % (Auto) 0.2 Immature Gran # (Auto) 0.23 H Neut # (Auto) 9.65 H Lymph # (Auto) 2.17 [place] # (Auto) 1.01 H Eos # (Auto) 0.15 Baso # (Auto) 0.02
== END 2019-01-24 13:35 | disposition home or self-care (01) | DRG 807 ==
LOC: 4S1 18:57 → 4S2 01-22 19:36

== ENCOUNTER 2023-05-12 11:49 | Observation (INO) ==
--- NOTE | 2023-05-12 11:57 | ED Triage Note ---
Date of Service May 12, 2023 Provider in Triage Author: Justus Greenfield History of Present Illness This patient was briefly evaluated while in triage. An abbreviated physical exam was performed. 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 Initial orders for labs and / or imaging were placed and patient was placed in the waiting area until a bed is available. Please see further documentation for the full ED course. MDM / Impression Impression Impression: Change in vision, Tremulousness
[2023-05-12 12:33] LABS: iSTAT Creatinine 0.9 mg/dl (0.6-1.3); iSTAT Hemoglobin 14.6 g/dl (12.0-16.0); iSTAT Ionized Calcium 1.17 mmol/l (1.12-1.32)
[2023-05-12] MEDS ORDERED: OPTIRAY 320 125ml IV ONE (12:33)
--- NOTE | 2023-05-12 12:41 | Emergency Department Note ---
Impression & Plan Change in vision, Tremulousness ED Provider Note HISTORY OF PRESENT ILLNESS: Patient is a 28-year-old female presenting with acute onset of headache and right eye vision changes. Patient reports she was seated at her desk about 1 hour prior to arrival when she suddenly developed a right-sided headache located behind her right eye and into the back of her head. Describes it as a sharp sensation. Reports that she then developed blurry vision with her right eye. She reports that when both eyes are "it feels like they are not working together." Denies any chest pain or shortness of breath. She is not on any OCPs. Denies any anticoagulation use. Denies any numbness or tingling in her extremities. Reports that she has been having shakiness in her bilateral upper and lower extremities since onset of symptoms. Denies any recent head injury or chiropractic manipulation of her neck. Patient reports that the entire field of vision in her right eye is blurry. Denies any visual field cuts. Denies any slurred speech. Patient denies any history of migraines or headaches. Patient symptom onset at 11:30 AM. ROS: as above PHYSICAL EXAM: Constitutional: Patient appears in no acute distress. HENT: Head: Normocephalic and atraumatic. Eyes: EOMI, PERRL Mouth/Throat: Mucous membranes moist. Neck: Trachea midline. Neck supple. Cardiovascular: RRR, No murmurs, rubs or gallops. Intact distal pulses. Pulmonary/Chest: No respiratory distress. Breath sounds clear and equal bilaterally. No wheezes or rales. Abdominal: Abdomen soft, no tenderness, rebound or guarding. Musculoskeletal: No edema, tenderness or deformity noted. Skin: Warm and dry. No rash, erythema, pallor or cyanosis Psychiatric: Appropriate mood and affect for situation. Neurological: Alert and keenly responsive. Facies symmetric. Able to raise eyebrows, close eyes, smile, puff mouth, stick out tongue, move tongue left and right and raise palate symmetrically. Able to shrug shoulders. PERRLA. SILT to forehead below eye and at jawline. Can hear soft noise bilaterally. Good finger to nose. Strength 5/5 in bilateral upper and lower extremities. SILT throughout bilateral upper and lower extremities. Patient is shaky in her bilateral upper and lower extremities. MDM: - Vitals signs showed hypertension and borderline tachycardia. - History obtained via patient. Patient presents with right-sided headache and right eye vision changes. Symptoms started acutely at 11:30 AM while she was sitting at her desk at work. Describes it as a sharp sensation. Reports the entire field of vision in her right eye is blurry. Denies any chest pain or shortness of breath. Denies any anticoagulation use. She denies any OCPs. Denies any numbness or tingling in her extremities. However, she reports she is very shaking in her bilateral upper and lower extremities. - Chronic conditions affecting care: none - Differential diagnoses include, but are not limited to: SAH; CVA; ocular migraine; electrolyte abnormality; primary headache - Order placed for continuous cardiac monitoring. At this time, monitor showed rate of 91 bpm with normal sinus rhythm, per my interpretation. - External medical records reviewed. - Patient's NIHSS 1. - Discussed case with stroke neurologist at [place], Dr. Morfin at 12:53. He reports he will evaluate patient on stroke cart. - Dr. Morfin called me back at 1340 and reported that he thinks that stroke is less likely. He states her CT scan is not suggestive of CVA or LVO. Reports she is not a candidate for TNKase or thrombectomy. Reports that the patient's only strokelike symptoms are her suggestive right eye vision changes, tremulousness and that she is slow to respond. Recommend the patient be admitted for MRI, EEG, inpatient neuro consultation. Recommended adding a toxicology panel and drug screen to the workup he then called me back at 1405 and stated that he reassessed the patient and she reported that she "cracked her neck this morning." He reports that this can sometimes be associated with a vertebral dissection. Recommended MRI angiograms of the head and neck. He reports that if these MRI images are negative for any dissection or stroke then the patient should be given Keppra. - However, on discussion with radiology, they report that CTAs are more sensitive for dissections and patient's CTA head/neck were negative. Recommended no MRAs. - EKG interpreted by myself showed normal sinus rhythm. Rate 94 bpm. QTc 455. No acute ischemic changes. - Laboratory workup interpreted by myself showed normal WBC; stable electrolytes; normal troponin - UA negative for infection - UDS negative - Discussion was had with toddler caregiver about patient's case and need for admission - Hospitalist consulted for admission - Patient admitted to [facility] service for further evaluation and management. ASSESSMENT AND PLAN: Diagnosis: right eye vision changes; tremulousness Plan: admit Past Med/Surg History Medical History (Updated 05/12/23 @ 14:30 by Carley Burk MD) Normal colonoscopy Surgical History H/O endoscopy [place] teeth extracted H/O dilation and curettage Hx of appendectomy Social History Smoking Status: Never smoker Second Hand Exposure: No; Do You Dip or Chew Tobacco: No; Hx Alcohol Use: No Hx Substance Use: No Preferred Language: Welsh Communication Ability: Effective [employer] Specialist Required: No Beliefs That Will Affect Care: None marital status: Single Current Living Situation: Significant Other Current Living Situation Comment: townhouse with FOB Feels Safe at Home: Yes Assistive Devices: None Allergies Allergies Allergy/AdvReac Type Severity Reaction Status Date / Time amoxicillin AdvReac Vomiting Verified 06/24/22 17:42 Home Meds Home Medications Medication Instructions Recorded Confirmed celecoxib 200 mg capsule 200 mg PO QAM 06/24/22 05/12/23 bupropion HCl 150 mg 24 hr tablet, 150 mg PO QAM 05/12/23 05/12/23 extended release cyanocobalamin (vitamin B-12) 1,000 mcg PO QAM 05/12/23 05/12/23 1,000 mcg tablet linaclotide 145 mcg capsule 145 mcg PO QAM PRN Constipation 05/12/23 05/12/23 (Linzess) pantoprazole 20 mg tablet,delayed 20 mg PO DAILY 05/12/23 05/12/23 release Results & Data (ED) Vital Signs Vital Signs - 24 hr 05/12/23 11:53 05/12/23 12:45 05/12/23 13:38 Temperature 36.6 C Temperature Source Temporal Artery Scan Pulse Rate 90 Pulse Rate [Apical] 92 H 90 Respiratory Rate 16 20 18 Respiratory Effort / Characteristics Non-Labored Spontaneous Respiratory Depth Normal Blood Pressure 155/86 H Blood Pressure [Right Arm] 150/87 H 141/90 H Blood Pressure Mean 109 Blood Pressure Mean [Right Arm] 108 107 Blood Pressure Position Sitting Pulse Oximetry 100 99 100 Oxygen Delivery Method Room Air Room Air Sepsis Recent Fever Within 48 Hours No Sepsis New/Unexplained Change in Mental Status No Sepsis Action Taken by Nursing No Action Required Laboratory Data 05/12/23 12:19 05/12/23 12:19 Lab Results 05/12/23 05/12/23 05/12/23 Range/Units 12:15 12:19 12:21 WBC 9.99 (4.8-10.8) K/ul RBC 4.53 (4.20-5.40) M/uL Hgb 14.1 (12.0-16.0) g/dl POC Hgb 14.6 (12.0-16.0) g/dl Hct 40.8 (37.0-47.0) % POC Hct 43 (37-47) % MCV 90.1 (80.0-100.0) fL MCH 31.1 (25.0-34.0) pg MCHC 34.6 (32.0-36.0) g/dL RDW Std Deviation 38.5 (36.4-46.3) fL RDW Coeff of Nita 11.8 (11.5-14.5) % Plt Count 311 (130-400) K/uL MPV 9.8 (9.4-12.4) fL Immature Gran % (Auto) 0.4 % Neut % (Auto) 65.3 % Lymph % (Auto) 24.2 % Laurens % (Auto) 5.1 % Eos % (Auto) 4.3 % Baso % (Auto) 0.7 % Neut # (Auto) 6.52 H (1.40-6.50) K/uL Lymph # (Auto) 2.42 (1.20-3.40) K/uL Laurens # (Auto) 0.51 (0.11-0.59) K/uL Eos # (Auto) 0.43 (0.00-0.50) K/uL Baso # (Auto) 0.07 (0.00-0.20) K/uL Immature Gran # (Auto) 0.04 (0.01-0.20) K/uL PT 10.8 (9.0-12.0) Seconds INR 1.0 (0.9-1.1) APTT 28 (21-31) Seconds PTT Ratio 1.0 POC Sodium 139 (135-144) mmol/L Sodium 139 (136-145) mmol/L POC Potassium 4.0 (3.3-5.0) mmol/L Potassium 3.9 (3.5-5.1) mmol/L POC Chloride 104 (101-112) mmol/L Chloride 104 (98-107) mmol/L Carbon Dioxide 25 (21-32) mmol/L POC Total CO2 26 (24-31) mmol/L Anion Gap 10 (3-11) POC Anion Gap 14.0 L (16-25) mmol/L POC BUN 16 (7-18) mg/dl BUN 16 (6-23) mg/dl Creatinine 0.88 (0.6-1.2) mg/dl POC Creatinine 0.9 (0.6-1.3) mg/dl Est Cr Clr Drug Dosing 89.9 ml/min Est GFR ( Amer) 104.4 ml/min Est GFR (Non-Af Amer) 90.0 ml/min BUN/Creatinine Ratio 18.2 (10-20) Glucose 82 (70-99(Fasting)) mg/dl POC Glucose (other) 85 (70-99) mg/dl Calcium 9.8 (8.6-10.3) mg/dl POC Ioniz Calcium Justin 1.17 (1.12-1.32) mmol/l Magnesium 2.0 (1.7-2.4) mg/dl Total Bilirubin 0.5 (0.2-1.0) mg/dl AST 19 (13-39) U/L ALT 18 (7-52) U/L Alkaline Phosphatase 71 (34-104) U/L Troponin I High Sens < 2.3 (0-14) pg/ml Total Protein 8.3 (6.0-8.3) gm/dl Albumin 4.9 (3.4-5.0) gm/dl Globulin 3.4 (2.5-4.0) gm/dl Albumin/Globulin Ratio 1.4 (0.9-2) Urine Color Urine Appearance (Clear) Urine pH (4.5-7.5) Ur Specific [place] (1.000-1.030) Urine Protein (Negative) Urine Glucose (UA) (Negative) Urine Ketones (Negative) Urine Blood (Negative) Urine Nitrite (Negative) Urine Bilirubin (Negative) Urine Urobilinogen (Negative) Ur Leukocyte Esterase (Negative) POC Ur Test NEG (NEG) Salicylates < 3.0 L (3.0-30) mg/dl Urine Opiates Screen (Neg) Ur Methadone, Qual (Neg) Acetaminophen < 3 L (10-30) ug/ml Urine Barbiturates (Neg) Ur Phencyclidine (PCP) (Neg) U Amphetamin/Meth Scrn (Neg) MDMA (Ecstasy) Screen (Neg) U Benzodiazepines Scrn (Neg) Ur Cocaine Metabolite (Neg) U Marijuana (THC) Screen (Neg) 05/12/23 Range/Units Unknown WBC (4.8-10.8) K/ul RBC (4.20-5.40) M/uL Hgb (12.0-16.0) g/dl POC Hgb (12.0-16.0) g/dl Hct (37.0-47.0) % POC Hct (37-47) % MCV (80.0-100.0) fL MCH (25.0-34.0) pg MCHC (32.0-36.0) g/dL RDW Std Deviation (36.4-46.3) fL RDW Coeff of Nita (11.5-14.5) % Plt Count (130-400) K/uL MPV (9.4-12.4) fL Immature Gran % (Auto) % Neut % (Auto) % Lymph % (Auto) % Laurens % (Auto) % Eos % (Auto) % Baso % (Auto) % Neut # (Auto) (1.40-6.50) K/uL Lymph # (Auto) (1.20-3.40) K/uL [place] # (Auto) (0.11-0.59) K/uL Eos # (Auto) (0.00-0.50) K/uL Baso # (Auto) (0.00-0.20) K/uL Immature Gran # (Auto) (0.01-0.20) K/uL PT (9.0-12.0) Seconds INR (0.9-1.1) APTT (21-31) Seconds PTT Ratio POC Sodium (135-144) mmol/L Sodium (136-145) mmol/L POC Potassium (3.3-5.0) mmol/L Potassium (3.5-5.1) mmol/L POC Chloride (101-112) mmol/L Chloride (98-107) mmol/L Carbon Dioxide (21-32) mmol/L POC Total CO2 (24-31) mmol/L Anion Gap (3-11) POC Anion Gap (16-25) mmol/L POC BUN (7-18) mg/dl BUN (6-23) mg/dl Creatinine (0.6-1.2) mg/dl POC Creatinine (0.6-1.3) mg/dl Est Cr Clr Drug Dosing ml/min Est GFR ( Amer) ml/min Est GFR (Non-Af Amer) ml/min BUN/Creatinine Ratio (10-20) Glucose (70-99(Fasting)) mg/dl POC Glucose (other) (70-99) mg/dl Calcium (8.6-10.3) mg/dl POC Ioniz Calcium Justin (1.12-1.32) mmol/l Magnesium (1.7-2.4) mg/dl Total Bilirubin (0.2-1.0) mg/dl AST (13-39) U/L ALT (7-52) U/L Alkaline Phosphatase (34-104) U/L Troponin I High Sens (0-14) pg/ml Total Protein (6.0-8.3) gm/dl Albumin (3.4-5.0) gm/dl Globulin (2.5-4.0) gm/dl Albumin/Globulin Ratio (0.9-2) Urine Color Yellow Urine Appearance Clear (Clear) Urine pH 7.0 (4.5-7.5) Ur Specific [place] 1.004 (1.000-1.030) Urine Protein Negative (Negative) Urine Glucose (UA) Negative (Negative) Urine Ketones Negative (Negative) Urine Blood Negative (Negative) Urine Nitrite Negative (Negative) Urine Bilirubin Negative (Negative) Urine Urobilinogen Negative (Negative) Ur Leukocyte Esterase Negative (Negative) POC Ur Test (NEG) Salicylates (3.0-30) mg/dl Urine Opiates Screen Neg (Neg) Ur Methadone, Qual Neg (Neg) Acetaminophen (10-30) ug/ml Urine Barbiturates Neg (Neg) Ur Phencyclidine (PCP) Neg (Neg) U Amphetamin/Meth Scrn Neg (Neg) MDMA (Ecstasy) Screen Neg (Neg) U Benzodiazepines Scrn Neg (Neg) Ur Cocaine Metabolite Neg (Neg) U Marijuana (THC) Screen Neg (Neg) Administered Medications Discontinued Medications Ioversol (Optiray 320 125ml) 115 ml IV ONCE ONE Stop: 05/12/23 12:34 Last Admin: 05/12/23 12:27 Dose: 115 ml Documented By: BROCK Imaging Data Radiologist's Impression: Head CT 05/12/23 11:[address] OF THE BRAIN; CT ANGIOGRAM OF THE BRAIN; CT ANGIOGRAM OF THE NECK CLINICAL HISTORY: Neurological deficit. Stroke like symptoms. Headache. Syncope. Visual disturbances. COMPARISON STUDY: CT of the brain dated 01/23/2013. TECHNIQUE: Unenhanced axial CT scan of the brain is performed. Subsequently, following the IV administration of 115 of Optiray 320, CT angiogram of the head and neck was performed from the aortic arch to the vertex. Images are reviewed in the axial, sagittal, and coronal planes. 3-D MIPS images are created and assessed. IV contrast was administered without complication. All measurements were calculated based on NASCET criteria. A dose lowering technique was utilized adhering to the principles of ALARA. CT DOSE: 888.13 mGy.cm FINDINGS: Brain parenchyma: The brain parenchyma is normal in appearance. There is no hemorrhage, mass effect, or evidence of acute territorial ischemia by CT criteria. There is no evidence of enhancing mass lesion on the angiogram phase images. The ventricles, sulci, and cisterns are normal in configuration. Jin- white matter differentiation is preserved. No extra-axial fluid collection is seen. Thoracic aorta: Visualized portions of the thoracic aorta are normal in caliber. The aortic arch demonstrates standard 3-vessel anatomy. Right carotid arterial system: The right common carotid artery is widely patent, as are the right internal and external carotid arteries. Left carotid arterial system: The left common carotid artery is widely patent, as are the left internal and external carotid arteries. Vertebral arteries: The vertebral arteries are widely patent bilaterally and codominant. Subclavian arteries: Widely patent bilaterally. Intracranial vasculature: The internal carotid arteries are patent at the skull base, as are the anterior and middle cerebral arteries bilaterally. The vertebrobasilar system and posterior cerebral arteries are widely patent. The vertebral arteries are codominant. There is a right posterior communicating artery. There is no aneurysm, high-grade stenosis, or focal vessel cut off seen throughout the intracranial circulation. Jugular veins: Patent bilaterally. Dural sinuses: Patent. Lung apices: Partially visualized upper lobe lung parenchyma appears clear. Soft tissues: The visualized pharyngeal soft tissues are normal in appearance noting angiographic phase technique. The oropharyngeal airway appears widely patent. The salivary and thyroid glands are normal in appearance. No cervical lymphadenopathy is seen. Skeletal structures: The calvarium appears intact. The cervical spine is within normal limits. Orbits: The bony orbits are intact. Orbital contents are normal as visualized. Sinuses and mastoids: There is mild mucosal thickening within the maxillary antra. Trace because of thickening is noted in the right sphenoid sinus. The mastoid air cells are well pneumatized. IMPRESSION: 1. No acute intracranial abnormality. 2. Unremarkable CT angiogram of the brain. 3. Unremarkable CT angiogram of the neck. ACT 112: Negative or not required by law. Electronically signed by: Torey Gill M.D. 05/12/2023 12:47 PM Head CTA 05/12/23 11:[address] OF THE BRAIN; CT ANGIOGRAM OF THE BRAIN; CT ANGIOGRAM OF THE NECK CLINICAL HISTORY: Neurological deficit. Stroke like symptoms. Headache. Syncope. Visual disturbances. COMPARISON STUDY: CT of the brain dated 01/23/2013. TECHNIQUE: Unenhanced axial CT scan of the brain is performed. Subsequently, following the IV administration of 115 of Optiray 320, CT angiogram of the head and neck was performed from the aortic arch to the vertex. Images are reviewed in the axial, sagittal, and coronal planes. 3-D MIPS images are created and assessed. IV contrast was administered without complication. All measurements were calculated based on NASCET criteria. A dose lowering technique was utilized adhering to the principles of ALARA. CT DOSE: 888.13 mGy.cm FINDINGS: Brain parenchyma: The brain parenchyma is normal in appearance. There is no hemorrhage, mass effect, or evidence of acute territorial ischemia by CT criteria. There is no evidence of enhancing mass lesion on the angiogram phase images. The ventricles, sulci, and cisterns are normal in configuration. Jin- white matter differentiation is preserved. No extra-axial fluid collection is seen. Thoracic aorta: Visualized portions of the thoracic aorta are normal in caliber. The aortic arch demonstrates standard 3-vessel anatomy. Right carotid arterial system: The right common carotid artery is widely patent, as are the right internal and external carotid arteries. Left carotid arterial system: The left common carotid artery is widely patent, as are the left internal and external carotid arteries. Vertebral arteries: The vertebral arteries are widely patent bilaterally and codominant. Subclavian arteries: Widely patent bilaterally. Intracranial vasculature: The internal carotid arteries are patent at the skull base, as are the anterior and middle cerebral arteries bilaterally. The vertebrobasilar system and posterior cerebral arteries are widely patent. The vertebral arteries are codominant. There is a right posterior communicating artery. There is no aneurysm, high-grade stenosis, or focal vessel cut off seen throughout the intracranial circulation. Jugular veins: Patent bilaterally. Dural sinuses: Patent. Lung apices: Partially visualized upper lobe lung parenchyma appears clear. Soft tissues: The visualized pharyngeal soft tissues are normal in appearance noting angiographic phase technique. The oropharyngeal airway appears widely patent. The salivary and thyroid glands are normal in appearance. No cervical lymphadenopathy is seen. Skeletal structures: The calvarium appears intact. The cervical spine is within normal limits. Orbits: The bony orbits are intact. Orbital contents are normal as visualized. Sinuses and mastoids: There is mild mucosal thickening within the maxillary antra. Trace because of thickening is noted in the right sphenoid sinus. The mastoid air cells are well pneumatized. IMPRESSION: 1. No acute intracranial abnormality. 2. Unremarkable CT angiogram of the brain. 3. Unremarkable CT angiogram of the neck. ACT 112: Negative or not required by law. Electronically signed by: Torey Gill M.D. 05/12/2023 12:47 PM Neck CTA 05/12/23 11:[address] OF THE BRAIN; CT ANGIOGRAM OF THE BRAIN; CT ANGIOGRAM OF THE NECK CLINICAL HISTORY: Neurological deficit. Stroke like symptoms. Headache. Syncope. Visual disturbances. COMPARISON STUDY: CT of the brain dated 01/23/2013. TECHNIQUE: Unenhanced axial CT scan of the brain is performed. Subsequently, following the IV administration of 115 of Optiray 320, CT angiogram of the head and neck was performed from the aortic arch to the vertex. Images are reviewed in the axial, sagittal, and coronal planes. 3-D MIPS images are created and assessed. IV contrast was administered without complication. All measurements were calculated based on NASCET criteria. A dose lowering technique was utilized adhering to the principles of ALARA. CT DOSE: 888.13 mGy.cm FINDINGS: Brain parenchyma: The brain parenchyma is normal in appearance. There is no hemorrhage, mass effect, or evidence of acute territorial ischemia by CT criteria. There is no evidence of enhancing mass lesion on the angiogram phase images. The ventricles, sulci, and cisterns are normal in configuration. Jin- white matter differentiation is preserved. No extra-axial fluid collection is seen. Thoracic aorta: Visualized portions of the thoracic aorta are normal in caliber. The aortic arch demonstrates standard 3-vessel anatomy. Right carotid arterial system: The right common carotid artery is widely patent, as are the right internal and external carotid arteries. Left carotid arterial system: The left common carotid artery is widely patent, as are the left internal and external carotid arteries. Vertebral arteries: The vertebral arteries are widely patent bilaterally and codominant. Subclavian arteries: Widely patent bilaterally. Intracranial vasculature: The internal carotid arteries are patent at the skull base, as are the anterior and middle cerebral arteries bilaterally. The vertebrobasilar system and posterior cerebral arteries are widely patent. The vertebral arteries are codominant. There is a right posterior communicating artery. There is no aneurysm, high-grade stenosis, or focal vessel cut off seen throughout the intracranial circulation. Jugular veins: Patent bilaterally. Dural sinuses: Patent. Lung apices: Partially visualized upper lobe lung parenchyma appears clear. Soft tissues: The visualized pharyngeal soft tissues are normal in appearance noting angiographic phase technique. The oropharyngeal airway appears widely patent. The salivary and thyroid glands are normal in appearance. No cervical lymphadenopathy is seen. Skeletal structures: The calvarium appears intact. The cervical spine is within normal limits. Orbits: The bony orbits are intact. Orbital contents are normal as visualized. Sinuses and mastoids: There is mild mucosal thickening within the maxillary antra. Trace because of thickening is noted in the right sphenoid sinus. The mastoid air cells are well pneumatized. IMPRESSION: 1. No acute intracranial abnormality. 2. Unremarkable CT angiogram of the brain. 3. Unremarkable CT angiogram of the neck. ACT 112: Negative or not required by law. Electronically signed by: Torey Gill M.D. 05/12/2023 12:47 PM Discharge Plan Visit Data Chief Complaint: Neuro Symptoms/Deficit Stated Complaint: SYNCOPE ED Provider: Carley Burk Discharge Problem: Change in vision, Tremulousness Forms Stand Alone Forms: [facility] Prescriptions Prescriptions: No Action celecoxib 200 mg capsule 200 mg PO QAM cyanocobalamin (vitamin B-12) 1,000 mcg tablet 1,000 mcg PO QAM pantoprazole 20 mg tablet,delayed release (DR/EC) 20 mg PO DAILY bupropion HCl 150 mg tablet extended release 24 hr 150 mg PO QAM Linzess 145 mcg capsule 145 mcg PO QAM PRN (Reason: Constipation) Referrals Referrals: Saleem Mccray DO [Primary Care Provider] -
--- NOTE | 2023-05-12 12:49 | CT Scan Report ---
UNENHANCED CT OF THE BRAIN; CT ANGIOGRAM OF THE BRAIN; CT ANGIOGRAM OF THE NECK CLINICAL HISTORY: Neurological deficit. Stroke like symptoms. Headache. Syncope. Visual disturbances. COMPARISON STUDY: CT of the brain dated 01/23/2013. TECHNIQUE: Unenhanced axial CT scan of the brain is performed. Subsequently, following the IV adminis tration of 115 of Optiray 320, CT angiogram of the head and neck was performed from the aortic arch t o the vertex. Images are reviewed in the axial, sagittal, and coronal planes. 3-D MIPS images are cre ated and assessed. IV contrast was administered without complication. All measurements were calculate d based on NASCET criteria. A dose lowering technique was utilized adhering to the principles of ALA RA. CT DOSE: 888.13 mGy.cm FINDINGS: Brain parenchyma: The brain parenchyma is normal in appearance. There is no hemorrhage, mass effect, or evidence of acute territorial ischemia by CT criteria. There is no evidence of enhancing mass lesi on on the angiogram phase images. The ventricles, sulci, and cisterns are normal in configuration. Gr ay-white matter differentiation is preserved. No extra-axial fluid collection is seen. Thoracic aorta: Visualized portions of the thoracic aorta are normal in caliber. The aortic arch demo nstrates standard 3-vessel anatomy. Right carotid arterial system: The right common carotid artery is widely patent, as are the right int ernal and external carotid arteries. Left carotid arterial system: The left common carotid artery is widely patent, as are the left international logistics analyst al and external carotid arteries. Vertebral arteries: The vertebral arteries are widely patent bilaterally and codominant. Subclavian arteries: Widely patent bilaterally. Intracranial vasculature: The internal carotid arteries are patent at the skull base, as are the ante rior and middle cerebral arteries bilaterally. The vertebrobasilar system and posterior cerebral alex rasta are widely patent. The vertebral arteries are codominant. There is a right posterior communicati ng artery. There is no aneurysm, high-grade stenosis, or focal vessel cut off seen throughout the int racranial circulation. Jugular veins: Patent bilaterally. Dural sinuses: Patent. Lung apices: Partially visualized upper lobe lung parenchyma appears clear. Soft tissues: The visualized pharyngeal soft tissues are normal in appearance noting angiographic pha se technique. The oropharyngeal airway appears widely patent. The salivary and thyroid glands are nor mal in appearance. No cervical lymphadenopathy is seen. Skeletal structures: The calvarium appears intact. The cervical spine is within normal limits. Orbits: The bony orbits are intact. Orbital contents are normal as visualized. Sinuses and mastoids: There is mild mucosal thickening within the maxillary antra. Trace because of t hickening is noted in the right sphenoid sinus. The mastoid air cells are well pneumatized. IMPRESSION: 1. No acute intracranial abnormality. 2. Unremarkable CT angiogram of the brain. 3. Unremarkable CT angiogram of the neck. ACT 112: Negative or not required by law. Electronically signed by: Torey Gill M.D. 05/12/2023 12:47 PM
[2023-05-12 12:54] LABS: Basophils # (auto) 0.07 K/uL (0.00-0.20); Basophils % (auto) 0.7 %; Eosinophils # (auto) 0.43 K/uL (0.00-0.50); Eosinophils % (auto) 4.3 %; Hematocrit (blood only) 40.8 % (37.0-47.0); Hemoglobin 14.1 g/dl (12.0-16.0); Immature Granulocytes # (auto) 0.04 K/uL (0.01-0.20); Immature Granulocytes % (auto) 0.4 %; Lymphocytes # (auto) 2.42 K/uL (1.20-3.40); Lymphocytes % (auto) 24.2 %; Mean Corpuscular Hemoglobin 31.1 pg (25.0-34.0); Mean Corpuscular Hgb Conc 34.6 g/dL (32.0-36.0); Mean Corpuscular Volume 90.1 fL (80.0-100.0); Mean Platelet Volume 9.8 fL (9.4-12.4); Monocytes # (auto) 0.51 K/uL (0.11-0.59); Monocytes % (auto) 5.1 %; Neutrophils # (auto) 6.52 K/uL (1.40-6.50); Neutrophils % (auto) 65.3 %; Platelet Count 311 K/uL (130-400); RDW Coefficient of Variation 11.8 % (11.5-14.5); RDW Standard Deviation 38.5 fL (36.4-46.3); Red Blood Count 4.53 M/uL (4.20-5.40); White Blood Count 9.99 K/ul (4.8-10.8)
[2023-05-12 13:12] LABS: Alanine Aminotransferase 18 U/L (7-52); Albumin Globulin Ratio 1.4 (0.9-2); Albumin Level 4.9 gm/dl (3.4-5.0); Alkaline Phosphatase 71 U/L (34-104); Anion Gap 10 (3-11); Aspartate Aminotransferase 19 U/L (13-39); BUN Creatinine Ratio 18.2 (10-20); Bilirubin,Total 0.5 mg/dl (0.2-1.0); Blood Urea Nitrogen 16 mg/dl (6-23); Calcium 9.8 mg/dl (8.6-10.3); Carbon Dioxide 25 mmol/L (21-32); Chloride 104 mmol/L (98-107); Creatinine Clr Calc Pharmacy 89.9 ml/min; Est GFR (African American) 104.4 ml/min; Globulin 3.4 gm/dl (2.5-4.0); Glucose 82 mg/dl (70-99(Fasting)); Potassium 3.9 mmol/L (3.5-5.1); Sodium 139 mmol/L (136-145); Total Protein 8.3 gm/dl (6.0-8.3)
[2023-05-12 13:17] LABS: Troponin I High Sensitivity < 2.3 pg/ml (0-14)
[2023-05-12 13:20] LABS: Partial Thromboplastin Time 28 Seconds (21-31); Prothrombin Time 10.8 Seconds (9.0-12.0)
[2023-05-12 13:59] LABS: Appearance Urine Clear (Clear); Bilirubin Urine Negative (Negative); Blood Urine Negative (Negative); Color Urine Yellow; Glucose Urine UA Negative (Negative); Ketones Urine Negative (Negative); Leukocyte Esterase Urine Negative (Negative); Nitrite Urine Negative (Negative); Protein Urine Negative (Negative); Specific Gravity Urine 1.004 (1.000-1.030); Urobilinogen Urine Negative (Negative)
[2023-05-12 14:23] LABS: Acetaminophen < 3 ug/ml (10-30); Salicylate < 3.0 mg/dl (3.0-30)
[2023-05-12 14:25] LABS: Amphetamines+Metham, Urine Neg (Neg); Barbiturates, Urine Neg (Neg); Benzodiazepine, Urine Neg (Neg); Cocaine, Urine Neg (Neg); MDMA (Ecstacy), Urine Neg (Neg); Marijuana, Urine Neg (Neg); Methadone, Urine Neg (Neg); Opiate, Urine Neg (Neg); Phencyclidine, Urine Neg (Neg)
--- NOTE | 2023-05-12 15:32 | History & Physical Report ---
Date of Service May 12, 2023 Assessment & Plan (1) Change in vision: (2) Tremulousness: (3) Headache: Plan: Patient is a 28-year-old female with PMH GERD, chronic constipation, depression presented to ER with complaint of initial pain behind right eye with blurry vision right eye followed by frontal DUKE with continued blurry vision right eye with associated paresthesias bilateral hands, reported weakness upper and lower extremities In ER vitals stable. No leukocytosis, no significant electrolyte abnormality. Negative urine . Negative urine drug screen. CT Head: No acute intracranial abnormality. CTA Head and chest: Unremarkable CT angiogram of the brain. Unremarkable CT angiogram of the neck. MRI Brain unremarkable DDX: CVA, seizure, atypical migraine, temporal arteritis, and others less likely suspect CVA at this time. lower suspicion for seizure as pt A&O throughout course. No temporal tenderness to palpation Patient had telestroke neurology evaluation in ER and no thrombolytics recommended TSH, B12 pending EEG Lyme pending Tylenol, Toradol prn DUKE Neurology consult Spoke with ophthalmology and suggests follow up with Dr Moran office outpatient CBC, BMP in am (4) Depression: Plan: Continue bupropion (5) GERD (gastroesophageal reflux disease): Plan: Continue PPI (6) Chronic constipation: Plan: Miralax prn. Continue Linzess prn DVT Prophylaxis SCDs Follows with Dr Mccray for routine care Pt was seen and care coordinated with Dr June. See addendum History of Present Illness Chief Complaint: DUKE, blurry vision Primary Care Provider: Saleem Mccray DO Patient is a 28-year-old female with PMH GERD, chronic constipation, depression presented to ER with complaint of DUKE, blurry vision right eye today. History obtained from patient and outpatient chart review. Patient states today was at work sitting at her desk around 10 AM when she developed sharp pain behind right eye with associated blurry vision. Patient states symptoms seem to resolve and then around 11 AM she was talking on the phone with a coworker when she had blurry vision in her right eye again with pain behind right eye and then developed generalized headache. Patient also reports she developed twitching of left side of face, felt like bilateral upper and lower arms were weak. Reports bilateral finger tingling. Patient states was awake and alert throughout entire thing. Denies any loss of consciousness or dizziness. Denies complete vision loss. Denies eye pain, eye redness. 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 Denies increased stress or increased depression symptoms. Denies history migraine DUKE or seizure disorder. Denies recent illness. Denies fever/chills, diaphoresis, V/D/C, dizziness, syncope, diplopia, neck pain, CP, SOB, orthopnea, palpitations, cough, sore throat, choking, otalgia, rhinorrhea, abdominal pain, extremity edema, rashes, urinary symptoms. Allergies Allergy/AdvReac Type Severity Reaction Status Date / Time amoxicillin AdvReac Vomiting Verified 06/24/22 17:42 Home Medications Medication Instructions Recorded Confirmed Type celecoxib 200 mg capsule 200 mg PO HS 06/24/22 05/12/23 History bupropion HCl 150 mg 24 hr tablet, 150 mg PO QAM 05/12/23 05/12/23 History extended release cyanocobalamin (vitamin B-12) 1,000 mcg PO QAM 05/12/23 05/12/23 History 1,000 mcg tablet linaclotide 145 mcg capsule 145 mcg PO QAM PRN Constipation 05/12/23 05/12/23 History (Linzess) pantoprazole 20 mg tablet,delayed 20 mg PO HS 05/12/23 05/12/23 History release Past Med/Surg History Medical History Chronic constipation Depression GERD (gastroesophageal reflux disease) Normal colonoscopy Surgical History H/O endoscopy [place] teeth extracted H/O dilation and curettage Hx of appendectomy Family History Grandmother (Maternal) Stroke Social History Smoking Status: Never smoker Second Hand Exposure: No; Do You Dip or Chew Tobacco: No; Hx Alcohol Use: No Hx Substance Use: No Preferred Language: Beninese Communication Ability: Effective Dump Attendant Required: No Beliefs That Will Affect Care: None marital status: Single Current Living Situation: Significant Other Current Living Situation Comment: [facility] with FOB Feels Safe at Home: Yes Assistive Devices: None Review of Systems Review of Systems: All systems reviewed & are unremarkable except as noted in HPI & below Physical Exam Physical Exam: General: no acute distress, WDWN Head: normocephalic, atraumatic Eyes: PERRL, EOM's intact, conjunctiva non-injected, anicteric ENT: normal inspection external ears, nose, mucous membranes moist. no facial or temporal tenderness to palpation Neck: supple, trachea midline, ROM intact Lungs: clear, no respiratory distress, no wheezing/rhonchi/rales CV: RRR, no murmur, no pretibial edema Abd: normal BS, soft, non-tender Ext: no cyanosis, no calf tenderness Neuro: A&O x 3, slightly anxious affect. Visual pineda intact with reported blurry vision with left lateral gaze. PERRL. EOMs intact. No nystagmus. Facial sensation is intact and symmetric, The face is strong and symmetric except no forehead wrinkling with eyebrow raise as pt receives botox, +twitching noted left side of mouth and left cheek intermittently, Hearing grossly intact, soft palate elevates symmetrically, no dysarthria, shoulder shrug intact, Tongue is midline, normal movement, no fasciculations, Muscle tone normal. Skin: warm, dry Results & Data Results & Data Vital Signs (Past 12 Hours) Vital Signs Temp Pulse Pulse Resp BP BP Pulse Ox 05/12/23 13:38 90 18 141/90 H 100 05/12/23 12:45 92 H 20 150/87 H 99 05/12/23 11:53 36.6 C 90 16 155/86 H 100 O2 Del Method 05/12/23 13:38 05/12/23 12:45 Room Air 05/12/23 11:53 Room Air Laboratory Results Short CBC 05/12/23 Range/Units 12:19 WBC 9.99 (4.8-10.8) K/ul Hgb 14.1 (12.0-16.0) g/dl Hct 40.8 (37.0-47.0) % Plt Count 311 (130-400) K/uL BMP 05/12/23 12:19 Sodium 139 Potassium 3.9 Chloride 104 Carbon Dioxide 25 BUN 16 Creatinine 0.88 Glucose 82 Calcium 9.8 Liver Function 05/12/23 Range/Units 12:19 Total Bilirubin 0.5 (0.2-1.0) mg/dl AST 19 (13-39) U/L ALT 18 (7-52) U/L Alkaline Phosphatase 71 (34-104) U/L Albumin 4.9 (3.4-5.0) gm/dl Urine 05/12/23 Range/Units Unknown Urine Color Yellow Urine Appearance Clear (Clear) Urine pH 7.0 (4.5-7.5) Ur Specific [place] 1.004 (1.000-1.030) Urine Protein Negative (Negative) Urine Glucose (UA) Negative (Negative) Diagnostic Findings Head CT 05/12/23 11:[address] OF THE BRAIN; CT ANGIOGRAM OF THE BRAIN; CT ANGIOGRAM OF THE NECK CLINICAL HISTORY: Neurological deficit. Stroke like symptoms. Headache. Syncope. Visual disturbances. COMPARISON STUDY: CT of the brain dated 01/23/2013. TECHNIQUE: Unenhanced axial CT scan of the brain is performed. Subsequently, following the IV administration of 115 of Optiray 320, CT angiogram of the head and neck was performed from the aortic arch to the vertex. Images are reviewed in the axial, sagittal, and coronal planes. 3-D MIPS images are created and assessed. IV contrast was administered without complication. All measurements were calculated based on NASCET criteria. A dose lowering technique was utilized adhering to the principles of ALARA. CT DOSE: 888.13 mGy.cm FINDINGS: Brain parenchyma: The brain parenchyma is normal in appearance. There is no hemorrhage, mass effect, or evidence of acute territorial ischemia by CT criteria. There is no evidence of enhancing mass lesion on the angiogram phase images. The ventricles, sulci, and cisterns are normal in configuration. Jin- white matter differentiation is preserved. No extra-axial fluid collection is seen. Thoracic aorta: Visualized portions of the thoracic aorta are normal in caliber. The aortic arch demonstrates standard 3-vessel anatomy. Right carotid arterial system: The right common carotid artery is widely patent, as are the right internal and external carotid arteries. Left carotid arterial system: The left common carotid artery is widely patent, as are the left internal and external carotid arteries. Vertebral arteries: The vertebral arteries are widely patent bilaterally and codominant. Subclavian arteries: Widely patent bilaterally. Intracranial vasculature: The internal carotid arteries are patent at the skull base, as are the anterior and middle cerebral arteries bilaterally. The vertebrobasilar system and posterior cerebral arteries are widely patent. The vertebral arteries are codominant. There is a right posterior communicating artery. There is no aneurysm, high-grade stenosis, or focal vessel cut off seen throughout the intracranial circulation. Jugular veins: Patent bilaterally. Dural sinuses: Patent. Lung apices: Partially visualized upper lobe lung parenchyma appears clear. Soft tissues: The visualized pharyngeal soft tissues are normal in appearance noting angiographic phase technique. The oropharyngeal airway appears widely patent. The salivary and thyroid glands are normal in appearance. No cervical lymphadenopathy is seen. Skeletal structures: The calvarium appears intact. The cervical spine is within normal limits. Orbits: The bony orbits are intact. Orbital contents are normal as visualized. Sinuses and mastoids: There is mild mucosal thickening within the maxillary antra. Trace because of thickening is noted in the right sphenoid sinus. The mastoid air cells are well pneumatized. IMPRESSION: 1. No acute intracranial abnormality. 2. Unremarkable CT angiogram of the brain. 3. Unremarkable CT angiogram of the neck. ACT 112: Negative or not required by law. Electronically signed by: Torey Gill M.D. 05/12/2023 12:47 PM Head CTA 05/12/23 11:[address] OF THE BRAIN; CT ANGIOGRAM OF THE BRAIN; CT ANGIOGRAM OF THE NECK CLINICAL HISTORY: Neurological deficit. Stroke like symptoms. Headache. Syncope. Visual disturbances. COMPARISON STUDY: CT of the brain dated 01/23/2013. TECHNIQUE: Unenhanced axial CT scan of the brain is performed. Subsequently, following the IV administration of 115 of Optiray 320, CT angiogram of the head and neck was performed from the aortic arch to the vertex. Images are reviewed in the axial, sagittal, and coronal planes. 3-D MIPS images are created and asse ssed. IV contrast was administered without complication. All measurements were calculated based on NASCET criteria. A dose lowering technique was utilized adhering to the principles of ALARA. CT DOSE: 888.13 mGy.cm FINDINGS: Brain parenchyma: The brain parenchyma is normal in appearance. There is no hemorrhage, mass effect, or evidence of acute territorial ischemia by CT criteria. There is no evidence of enhancing mass lesion on the angiogram phase images. The ventricles, sulci, and cisterns are normal in configuration. Jin- white matter differentiation is preserved. No extra-axial fluid collection is seen. Thoracic aorta: Visualized portions of the thoracic aorta are normal in caliber. The aortic arch demonstrates standard 3-vessel anatomy. Right carotid arterial system: The right common carotid artery is widely patent, as are the right internal and external carotid arteries. Left carotid arterial system: The left common carotid artery is widely patent, as are the left internal and external carotid arteries. Vertebral arteries: The vertebral arteries are widely patent bilaterally and codominant. Subclavian arteries: Widely patent bilaterally. Intracranial vasculature: The internal carotid arteries are patent at the skull base, as are the anterior and middle cerebral arteries bilaterally. The vertebrobasilar system and posterior cerebral arteries are widely patent. The vertebral arteries are codominant. There is a right posterior communicating artery. There is no aneurysm, high-grade stenosis, or focal vessel cut off seen throughout the intracranial circulation. Jugular veins: Patent bilaterally. Dural sinuses: Patent. Lung apices: Partially visualized upper lobe lung parenchyma appears clear. Soft tissues: The visualized pharyngeal soft tissues are normal in appearance noting angiographic phase technique. The oropharyngeal airway appears widely patent. The salivary and thyroid glands are normal in appearance. No cervical lymphadenopathy is seen. Skeletal structures: The calvarium appears intact. The cervical spine is within normal limits. Orbits: The bony orbits are intact. Orbital contents are normal as visualized. Sinuses and mastoids: There is mild mucosal thickening within the maxillary antra. Trace because of thickening is noted in the right sphenoid sinus. The mastoid air cells are well pneumatized. IMPRESSION: 1. No acute intracranial abnormality. 2. Unremarkable CT angiogram of the brain. 3. Unremarkable CT angiogram of the neck. ACT 112: Negative or not required by law. Electronically signed by: Torey Gill M.D. 05/12/2023 12:47 PM Neck CTA 05/12/23 11:[address] OF THE BRAIN; CT ANGIOGRAM OF THE BRAIN; CT ANGIOGRAM OF THE NECK CLINICAL HISTORY: Neurological deficit. Stroke like symptoms. Headache. Syncope. Visual disturbances. COMPARISON STUDY: CT of the brain dated 01/23/2013. TECHNIQUE: Unenhanced axial CT scan of the brain is performed. Subsequently, following the IV administration of 115 of Optiray 320, CT angiogram of the head and neck was performed from the aortic arch to the vertex. Images are reviewed in the axial, sagittal, and coronal planes. 3-D MIPS images are created and assessed. IV contrast was administered without complication. All measurements were calculated based on NASCET criteria. A dose lowering technique was utilized adhering to the principles of ALARA. CT DOSE: 888.13 mGy.cm FINDINGS: Brain parenchyma: The brain parenchyma is normal in appearance. There is no hemorrhage, mass effect, or evidence of acute territorial ischemia by CT criteria. There is no evidence of enhancing mass lesion on the angiogram phase images. The ventricles, sulci, and cisterns are normal in configuration. Jin- white matter differentiation is preserved. No extra-axial fluid collection is seen. Thoracic aorta: Visualized portions of the thoracic aorta are normal in caliber. The aortic arch demonstrates standard 3-vessel anatomy. Right carotid arterial system: The right common carotid artery is widely patent, as are the right internal and external carotid arteries. Left carotid arterial system: The left common carotid artery is widely patent, as are the left internal and external carotid arteries. Vertebral arteries: The vertebral arteries are widely patent bilaterally and codominant. Subclavian arteries: Widely patent bilaterally. Intracranial vasculature: The internal carotid arteries are patent at the skull base, as are the anterior and middle cerebral arteries bilaterally. The vertebrobasilar system and posterior cerebral arteries are widely patent. The vertebral arteries are codominant. There is a right posterior communicating artery. There is no aneurysm, high-grade stenosis, or focal vessel cut off seen throughout the intracranial circulation. Jugular veins: Patent bilaterally. Dural sinuses: Patent. Lung apices: Partially visualized upper lobe lung parenchyma appears clear. Soft tissues: The visualized pharyngeal soft tissues are normal in appearance noting angiographic phase technique. The oropharyngeal airway appears widely patent. The salivary and thyroid glands are normal in appearance. No cervical lymphadenopathy is seen. Skeletal structures: The calvarium appears intact. The cervical spine is within normal limits. Orbits: The bony orbits are intact. Orbital contents are normal as visualized. Sinuses and mastoids: There is mild mucosal thickening within the maxillary antra. Trace because of thickening is noted in the right sphenoid sinus. The mas toid air cells are well pneumatized. IMPRESSION: 1. No acute intracranial abnormality. 2. Unremarkable CT angiogram of the brain. 3. Unremarkable CT angiogram of the neck. ACT 112: Negative or not required by law. Electronically signed by: Torey Gill M.D. 05/12/2023 12:47 PM Brain MRI 05/12/23 14:05 MR brain wo con HISTORY: 28 years-old Female R vision changes . Acute headache with blurry vision and strokelike symptoms COMPARISON: Head CT of same day TECHNIQUE: Multiplanar multisequence MRI of the brain was obtained without the use of IV contrast. FINDINGS: No restricted diffusion. No acute intracranial hemorrhage, midline shift, abnormal extra-axial collection, hydrocephalus or intra-axial mass. No pathologic blooming artifact. Normal volume and signal characteristics of the brain parenchyma. The cerebral venous sinuses and major arterial flow voids appear patent. The skull, orbits and soft tissues are unremarkable. Mastoid air cells are clear. Mild to moderate mucosal thickening of the paranasal sinuses. IMPRESSION: Unremarkable MRI of the brain. ACT 112: Negative or not required by law. The above report was generated using voice recognition software. It may contain grammatical, syntax or spelling errors. Electronically signed by: Nick Barrera M.D. 05/12/2023 4:44 PM ECG Additional Comments: sinus rhythm, rate 94, no significant ST changes per my interpretation Supervising Physician Co-Signing Physician Notes I have seen and examined the patient and have discussed the case with the provider above. I agree with the assessment and plan as stated with the following exceptions. 28-year-old female presents with headache, nonspecific vision complaints without blindness or eye pain or eye redness. She has some intermittent paresthesias in her hands bilaterally. Electrolytes and kidney function was checked and all within normal limits. These b paresthesias began in the ulnar distribution of the left hand earlier today then went away. As she was laying in the bed she then reported her entire arm went numb on the left. This seemed to resolve but she had some residual spasms in the biceps muscle causing some twitching. She also has some muscle twitching in her face on the left cheek area. She is able to walk but reports some intermittent leg weakness. She felt fine yesterday per her report. She was sitting at work today when the symptoms came on. She has no significant headache history in the past. Mother has a history of reported unprovoked blood clots. Patient denies that she your mother has ever been tested for genetic mutations cause blood clots. It is reassuring that her MRI of the brain is unremarkable. As noted above telestroke neurology saw patient and is less suspicious of a CVA at this time, low suspicion for seizure with no loss of consciousness or convulsive behavior. Vision issues appear to be nonspecific and something that she can follow-up in the ophthalmology office for her as outpatient. Will improve her pain with ibuprofen and see if this improves some of her symptoms. No gross neurologic deficits are present other exam findings as noted above and intermittent sensation issues. Complicated migraine is in the differential as is something like Lyme disease. Otherwise would consider something systemic. Does not appear to have focal deficits to suggest a stroke and seizures seems less likely. CBC and chem panel are WNL, she is not and urine drug screen is unremarkable. No other clear deficits in sleep or increased stress is present but this also may be a manifestation of something like that. Continue supportive care efforts. Await neurology recommendations Slade, DO
--- NOTE | 2023-05-12 16:46 | Magnetic Resonance Report ---
MR brain wo con HISTORY: 28 years-old Female R vision changes . Acute headache with blurry vision and strokelike sym ptoms COMPARISON: Head CT of same day TECHNIQUE: Multiplanar multisequence MRI of the brain was obtained without the use of IV contrast. FINDINGS: No restricted diffusion. No acute intracranial hemorrhage, midline shift, abnormal extra-axial collec tion, hydrocephalus or intra-axial mass. No pathologic blooming artifact. Normal volume and signal ch aracteristics of the brain parenchyma. The cerebral venous sinuses and major arterial flow voids appear patent. The skull, orbits and soft tissues are unremarkable. Mastoid air cells are clear. Mild to moderate mucosal thickening of the par anasal sinuses. IMPRESSION: Unremarkable MRI of the brain. ACT 112: Negative or not required by law. The above report was generated using voice recognition software. It may contain grammatical, syntax o r spelling errors. Electronically signed by: Nick Barrera M.D. 05/12/2023 4:44 PM
[2023-05-12] MEDS ORDERED: IBUPROFEN 800 MG TAB PO STA (17:38)
[2023-05-12] MEDS ORDERED: ONDANSETRON INJ 2 MG/ML 2 ML VIAL IV PRN (18:05)
[2023-05-12] MEDS ORDERED: ACETAMINOPHEN 325 MG TAB PO PRN (18:05)
[2023-05-12] MEDS ORDERED: POLYETHYLENE (MIRALAX) 17 GM PACK PO PRN (18:05)
[2023-05-12] MEDS ORDERED: PHARMACIST DISCHARGE MED REC CONSULT PRN (18:05)
--- OUTSIDE RECORDS SUMMARY | 2023-05-12 19:58 | External Medical Summary | Summary of Care ---
Author Name Unknown Organization [facility] Address [address] [place] [address] Phone [phone] Care Team Providers Care Card Punching Machine Operator Name Role Phone Saleem Mccray DO Primary Care Provider Reason for Visit * Reason Onset Date Comments Advice 12/24/2022 Encounter Details Date Type Department Care Team Description 12/24/2022 Telephone Gynecology/Obstetrics [id number] [place] [address] Giselle Denny PA-C [address] [place] [address] Advice Allergies Active Allergy Reactions Severity Noted Date Comments Amoxicillin Nausea/vomiting High 02/23/2018 documented as of this encounter (statuses as of 12/24/2022) Medications Medication Sig Dispensed Refills Start Date End Date Status ondansetron ODT (ZOFRAN) 4 MG TBDP TAKE 1 TABLET BY MOUTH EVERY 6 HOURS NEEDED FOR NAUSEA AND VOMITING 0 11/07/2019 Active Calcium Carbonate Antacid 750 MG Oral Tablet Chewable Take 2 Tablets by mouth 3 times a day as needed for Heartburn. 0 Active Docusate Sodium 100 MG Oral Capsule (Colace) Take 1 Cap by mouth 2 times a day. 60 Cap 3 05/31/2020 Active Cyclobenzaprine HCl 10 MG Oral Tablet (Flexeril) Take 1 Tablet by mouth 3 times a day as needed for Muscle spasms. 0 Active Alyacen 1-35 MG-MCG Oral TabletIndications:Enc ounter for surveillance of contraceptive pills TAKE BY MOUTH 1 TABLET IN THE MORNING. 84 Tablet 4 02/11/2022 Active Celecoxib 200 MG Oral Capsule (CeleBREX)Indications :Neck sprain, subsequent encounter,Muscle tension headache TAKE BY MOUTH 1 CAPSULE IN THE MORNING. FOR PAIN. 90 Capsule 1 08/15/2022 Active Polyethylene Glycol 3350 17 GM/SCOOP Oral Powder Take 17 g by mouth in the morning. 0 Active Vitamin B-12 1000 MCG Oral Tablet (Cyanocobalamin)Indic ations:Encounter for long-term (current) use of other medications Take 1 Tablet by mouth in the morning. 100 Tablet 3 10/21/2022 Active Linzess 145 MCG Oral Capsule (linaCLOtide) Take 1 Capsule by mouth in the morning. 90 Capsule 1 11/17/2022 Active Albuterol Sulfate HFA 108 (90 Base) MCG/ACT Inhalation Aerosol SolutionIndications:M ild persistent asthma without complication Inhale 2 Puffs by mouth every 6 hours as needed for Cough, Shortness of Breath or Wheezing. 18 g 2 11/27/2022 Active Fluticasone-Salmetero l 250-50 MCG/ACT Inhalation Aerosol Powder Breath Activated (Advair Diskus)Indications:Mi ld persistent asthma without complication Inhale 1 Puff by mouth in the morning and 1 Puff before bedtime. 60 Each 2 11/27/2022 Active Fluticasone-Salmetero l 250-50 MCG/ACT Inhalation Aerosol Powder Breath Activated (Advair Diskus)Indications:Mi ld persistent asthma without complication Inhale 1 Puff by mouth in the morning and 1 Puff before bedtime. 60 Each 1 12/01/2022 Active Pantoprazole Sodium 20 MG Oral Tablet Delayed Release (Protonix) Take 1 Tablet by mouth at bedtime. 90 Tablet 3 12/10/2022 Active Hospital, Clinic, or Other Facility Administered Medication Ordered Dose Route Frequency Start Date End Date Status Albuterol Sulfate (Proventil) (2.5 MG/3ML) 0.083% inhalation solution 2.5 mgIndications:Mild persistent asthma without complication 2.5 mg NEBULIZER ONCE PRN 11/27/2022 11/27/2023 Acti ve documented as of this encounter (statuses as of 12/24/2022) Active Problems Problem Noted Date Chest pressure 06/24/2022 Advance directive declined by patient Overview: No, Advance Directive brochure offered, patient declined. 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 TDap administered 08/15/18 Tracey Almaguer LPN Viremia 07/17/2002 12/03/2008 documented as of this encounter (statuses as of 12/24/2022) Immunizations Name Administration Dates Next Due Covid-19 Rs-nanoparticle+mat lia-m1, Adjuvant, (Novovax) 01/02/2022 DTaP - Dipth/Tet/Acell Pertussis 002,09/04/1997,1996,07/06,1996 HIB 3 dose (Pedvax) 06/04/1997,1996,1996 Hepatitis B, 0-19 yrs 1996,1996,02/08 IPV - Polio Virus Vaccine (Inact) 2001,06/04/1997,1996,05/05 MMR - Measles/Mumps/Rubella Vaccine 08/01/2001,0 06/04/1997 Meningococcal Conjugate Vacc ine (Menactra/Menveo) 12/12/2014,12/03/2008 PPD 07/29/2022, 1,04/12/2020,03/22 Seasonal Influenza, QUAD, wi th Preserv, 6 mons & Above, 0.5 mL, IM 02/18/2019,02/07/2017 Seasonal Influenza, Quadriva lent, No Preserve, 6 Mons & Above, IM 03/06/2022,03/01/2020 Seasonal Influenza, Quadriva lent, No Preserve, IM 01/23/2016 TB Demi Test 1996 TDAP (age 10 and older)(Boostrix) 11/14/2018,11/2015 TDAP (age 11 and older)(Adacel) 12/03/2008 Varicella Vaccine (Chicken Pox) 12/03/2008,06/04 documented as of this encounter Social History Tobacco Use Types Packs/Day Years Used Date Smoking Tobacco: Never Smokeless Tobacco: Never Alcohol Use Standard Drinks/Week Comments Not Currently 0 (1 standard drink = 0.6 oz pur e alcohol) denies in 2019 Food Insecurity Answer Date Recorded Within the past 12 months, y ou worried that your food would run out before you got money to buy more. Never true 01/12/2020 Within the past 12 months, t he food you bought just didn't last and you didn't have money to get more. Never true 01/12/2020 Education Answer Date Recorded What is the highest level of school you have completed or the highest degree you have received? Bachelor's degree (e.g., BA, AB, BS) 09/19/2018 Sex Assigned at Date Recorded Female 01/12/2020 7:43 AM E DT Job Start Date Occupation Industry Not on file Not on file Not on file documented as of this encounter Miscellaneous Notes * Telephone Encounter - Mckenna Hernadez RN - 12/24/2022 3:20 PM EDT Patient called back. States she missed her last period for the past 20 days. Took multiple UPT and all are negative. Patient c/o pelvic cramping and bloating for the past 2 weeks. Within the past fewdays, has had increased camping the the past couple days. Reports + nausea. Denies severe pain. No vaginal odor or abnormal discharge, itching burning. Denies abnormal periods prior to this. Patient is currently on OCP and has not missed any pills. Made patient soonest appt for in January for problem visit. Encouraged patient to schedule with PCP sooner if able to get in to start work up. Advised her to call back with any new/worsening sx and to check for cancellations daily. Pt verbalized und erstanding. * Telephone Encounter - Tara Cash LPN - 12/24/2022 3:08 PM EDT Called pt lm to return call * Telephone Encounter - STEFF Daniel - 12/24/2022 2:38 PM EDT PT called to get a sooner APPT do to Pain and bloating. Please Assist with advice . Thank you. documented in this encounter Plan of Treatment Upcoming Encounters Date Type Specialty Care Team Description 01/25/2023 Office Visit Gynecology Obstetrics Jennifer Vanegas CRNP [address] [place] [address] 02/16/2023 Office Visit Gynecology Obstetrics Giselle Denny PA-C [address] [place] [address] 06/09/2023 Office Visit Gastroenterology Meg Swan CRNP [address] [place] [address] Health Maintenance Due Date Last Done Comments Pneumococcal Vaccine: Pediat rics (0 to 5 Years) and At-Risk Patients (6 to 64 Years) (1 - PCV) 2002 GARDASIL-HPV IMMUNIZATION SE [place] (1 - 2-dose series) 2007 Hepatitis C Screening 2014 Depression Screening, Annual for Pts 12 and Over 03/24/2020 03/24/2019 COVID-19 Vaccine (2 - Novava x series) 01/23/2022 01/02/2022 Influenza Vaccine (FLU shot) (#1) 2023 03/06/2022, 03/01/2020, 02/18/2019, Additional history exists Pap Smear 07/09/2023 07/08/2020, 06/29/2017 DTaP,Tdap,and Td Vaccines (9 - Td or Tdap) 11/14/2028 11/14/2018, 07/15/2015, 12/03/2008, Additional history exists Hepatitis B Completed 1996, 04/10, 1996 MENINGOCOCCAL (MENACTRA/MENVEO) Completed 5, 12/03/2008 Gonorrhea / Chlamydia Screen Discontinued 08/2019, 06/03/2018, 06/29/2017 documented as of this encounter Medical Devices Not on filedocumented as of this encounter Care Teams Card Punching Machine Operator Relationship Specialty Start Date End Date Saleem Mccray DO [address] [place] [address] PCP - General Family Medicine 11/28/19 documented as of this encounter
--- OUTSIDE RECORDS SUMMARY | 2023-05-12 19:58 | External Medical Summary | Summary of Care ---
Author Name Unknown Organization [facility] Address [address] [place] [address] Phone [phone] Care Team Providers Care Parking Meter Collector Name Role Phone Saleem Mccray DO Primary Care Provider + [phone] Encounter Details Date Type Department Care Team (Late st Contact Info) Description 03/13/2023 11:20 AM EDT Telemedicine Family Practice [facility] [address] [facility] [place] [address] Ayden Mccord III, MD [address] [facility] [place] [address] Moderate depressive episode* Allergies Active Allergy Reactions Criticality Noted Date Comments Amoxicillin Nausea/vomiting High 02/23/2018 documented as of this encounter (statuses as of 03/16/2023) Medications Medication Sig Dispensed Refills Start Date [...] THE MORNING. 84 Tablet 4 02/11/2022 Active Polyethylene Glycol 3350 17 GM/SCOOP Oral [...] at bedtime. 90 Tablet 3 12/10/2022 Active Celecoxib 200 MG Oral Capsule (CeleBREX)Indications :Neck sprain, subsequent encounter,Muscle tension headache TAKE BY MOUTH 1 CAPSULE IN THE MORNING. FOR PAIN. 30 Capsule 5 02/13/2023 Active buPROPion HCl ER (XL) 150 MG Oral Tablet Extended Release 24 Hour (Wellbutrin XL) Take 1 Tablet by mouth in the morning. 30 Tablet 5 03/13/2023 Active Hospital, Clinic, or Other Facility Administered Medication Ordered Dose Route Frequency Start Date End Date Status Albuterol Sulfate (Proventil) (2.5 MG/3ML) 0.083% inhalation solution 2.5 mgIndications:Mild persistent asthma without complication 2.5 mg NEBULIZER ONCE PRN 11/27/2022 11/27/2023 Acti ve documented as of this encounter (statuses as of 03/16/2023) Active Problems Problem Noted Date Diagnosed Date Chest pressure 06/24/2022 Advance directive declined by patient 09/19/2018 Overview: No, Advance Directive brochure offered, patient declined. 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 TDap administered 08/15/18 Tracey Almaguer, TORREY Viremia 07/17/2002 12/03/2008 documented as of this encounter (statuses as of 03/16/2023) Immunizations Name Administration Dates Next Due Covid-19 Rs-nanoparticle+mat lia-m1, Adjuvant, (Novovax) 01/02/2022 DTaP Dipth/Tet/Acell Pertussis (Infanrix), Peds 08/01/2001,09/04/1997,1996,07/06,1996 HIB PRP-OMP, 3 dose (Pedvax) 06/04/1997,09/12/18 97,1996 Hepatitis B, 0-19 yrs 1996,1996,10/09/1995 IPV - Polio Virus Vaccine (Inact) 2001,06/04/1997,1996,05/05 MMR - Measles/Mumps/Rubella Vaccine 08/01/2001,0 06/04/1997 Meningococcal Conjugate Vacc ine (Menactra/Menveo) 12/12/2014,12/03/2008 PPD 07/29/2022, 1,04/12/2020,03/22 SEASONAL INFLUENZA, PF, 6 M & Above, IM , (FLULAVAL or FLUZONE) 03/06/2022,03/01/2020 Seasonal Influenza, QUAD, wi th Preserv, 6 mons & Above, 0.5 mL, IM 02/18/2019,02/07/2017 Seasonal Influenza, Quadriva lent, No Preserve, IM [...] oz pur e alcohol) denies in 2019 PHQ-2 Answer Date Recorded PHQ-2 Score 0 03/24/2019 Hunger Vital Sign Answer Date Recorded Worried About Running Out of Food in the Last Ye ar Never true 01/12/2020 Ran Out of Food in the Last Year Never true 01/12/2020 Scenic Depression Scale Answer Date Recorded Scenic Depression Scale Score 3 01/12/2020 The thought of harming myself has occurred to me . (Pt Reported) 01/12/2020 Education Answer Date Recorded What is the highest level of school you have completed or the highest degree you have received? Bachelor's degree (e.g., BA, AB, BS) 09/19/2018 Sex and Gender Information Value Date Recorded Sex Assigned at Female 01/12/2020 7:43 AM EDT Gender Identity Female 01/12/2020 7:43 AM EDT Sexual Orientation Straight 01/12/2020 7: 43 AM EDT Job Start Date Occupation Industry Not on file Not on file Not on file documented as of this encounter Progress Notes * Ayden Mccord III, MD - 03/13/2023 11:41 AM EDT After connecting to the patient via telephone, the patient was identified by name and date of . Patient was then informed that this was a telephone call only visit. The patient agreed to participate. Visit Disposition: Routine follow-up Total call duration was 8 minutes. Unable to connect re televideo patient has felt more depressed has had some dramatic issues over the past 8 years had been on Zoloft and Paxil in the past but felt poorly with that 0 emotion reports multiple family members are doing well on bupropion denies suicidal thoughts and plans Begin Wellbutrin XL 150 mg daily call if problems make follow-up appointment 1 month documented in this encounter Plan of Treatment Upcoming Encounters Date Type Department Care Team (Late st Contact Info) Description 06/09/2023 3:00 PM EST Office Visit Gastroenterology, [facility] [address] [place] [address] Meg Swan CRNP [address] [place] [address] Health Maintenance Due Date Last Done Comments Pneumococcal Vaccine: Pediatrics (0 to 5 Years) and At-Risk Patients (6 to 64 Years) (1 - PCV) 2002 Hepatitis C Screening 2014 Depression Screening 03/24/2020 03/24/2019 COVID-19 Vaccine (2 - 2022- season) 2023 01/02/2022 Influenza Vaccine (FLU shot) (#1) 2023 03/06/2022, 03/01/2020, 02/18/2019, Additional history exists Pap Smear 07/09/2023 07/08/2020, 06/29/2017 DTaP,Tdap,and Td Vaccines (9 - Td or Tdap) 11/14/2028 11/14/2018, 07/15/2015, 12/03/2008, Additional history exists Hepatitis B Completed 1996, 04/10, 1996 MENINGOCOCCAL (MENACTRA/MENVEO) Completed 12/12/2014, 12/03/2008 Gonorrhea / Chlamydia Screen Discontinued 01/12/2020, 06/03/2018, 06/29/2017 GARDASIL-HPV IMMUNIZATION SERIES Aged Out No longer eligible based on patient's age to complete this topic documented as of this encounter Medical Devices Not on filedocumented as of this encounter Visit Diagnoses Diagnosis Moderate depressive episode- Primary documented in this encounter Care Teams Parking Meter Collector Relationship Specialty Start Date End Date Saleem Mccray DO PCP - General Family Medicine 11/28/19 documented as of this encounter
--- OUTSIDE RECORDS SUMMARY | 2023-05-12 19:58 | External Medical Summary | Summary of Care ---
Author Name Unknown Organization [facility] Address [address] [place] [address] Phone [phone] Care Team Providers Care Health Insurance Adjuster Name Role Phone Saleem Mccray DO Primary Care Provider Reason for Visit * Reason Comments eRx-Medication Refill Encounter Details Date Type Department Care Team Description 02/13/2023 Refill Family Practice [facility] [address] [facility] [place] [address] Saleem Mccray DO [address] [place] [address] Neck sprain, subsequent encounter; Muscle tension headache Allergies Active Allergy Reactions Severity Noted Date Comments Amoxicillin Nausea/vomiting High 02/23/2018 documented as of this encounter (statuses as of 02/13/2023) Medications Medication Sig Dispensed Refills Start Date [...] spasms. 0 Active Alyacen 1-35 MG-MCG Oral TabletIndications: Encounter for surveillance of contraceptive pills TAKE BY MOUTH 1 TABLET IN THE MORNING. 84 Tablet 4 02/11/2022 Active Polyethylene Glycol 3350 17 GM/SCOOP Oral Powder Take 17 g by mouth in the morning. 0 Active Vitamin B-12 1000 MCG Oral Tablet (Cyanocobalamin)In dications:Encounte r for long-term (current) use of other medications Take 1 Tablet by mouth in the morning. 100 Tablet 3 10/21/2022 Active Linzess 145 MCG Oral Capsule (linaCLOtide) Take 1 Capsule by mouth in the morning. 90 Capsule 1 11/17/2022 Active Albuterol Sulfate HFA 108 (90 Base) MCG/ACT Inhalation Aerosol SolutionIndication s:Mild persistent asthma without complication Inhale 2 Puffs by mouth every 6 hours as needed for Cough, Shortness of Breath or Wheezing. 18 g 2 11/27/2022 Active Fluticasone-Salmet keshawn 250-50 MCG/ACT Inhalation Aerosol Powder Breath Activated (Advair Diskus)Indications :Mild persistent asthma without complication Inhale 1 Puff by mouth in the morning and 1 Puff before bedtime. 60 Each 2 11/27/2022 Active Fluticasone-Salmet keshawn 250-50 MCG/ACT Inhalation Aerosol Powder Breath Activated (Advair Diskus)Indications :Mild persistent asthma without complication Inhale 1 Puff by mouth in the morning and 1 Puff before bedtime. 60 Each 1 12/01/2022 Active Pantoprazole Sodium 20 MG Oral Tablet Delayed Release (Protonix) Take 1 Tablet by mouth at bedtime. 90 Tablet 3 12/10/2022 Active Celecoxib 200 MG Oral Capsule (CeleBREX)Indicati ons:Neck sprain, subsequent encounter,Muscle tension headache TAKE BY MOUTH 1 CAPSULE IN THE MORNING. FOR PAIN. 30 Capsule 5 02/13/2023 Active Celecoxib 200 MG Oral Capsule (CeleBREX)Indicati ons:Neck sprain, subsequent encounter,Muscle tension headache TAKE BY MOUTH 1 CAPSULE IN THE MORNING. FOR PAIN. 90 Capsule 1 08/15/2022 Discontinued Hospital, Clinic, or Other Facility Administered Medication Ordered Dose Route Frequency Start Date End Date Status Albuterol Sulfate (Proventil) (2.5 MG/3ML) 0.083% inhalation solution 2.5 mgIndications:Mild persistent asthma without complication 2.5 mg NEBULIZER ONCE PRN 11/27/2022 11/27/2023 Acti ve documented as of this encounter (statuses as of 02/13/2023) Active Problems Problem Noted Date Chest pressure 06/24/2022 Advance directive declined by patient Overview: No, Advance Directive brochure offered, patient declined. 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 TDap administered 08/15/18 Tracey Almaguer LPN Viremia 07/17/2002 12/03/2008 documented as of this encounter (statuses as of 02/13/2023) Immunizations Name Administration Dates Next Due Covid-19 Rs-nanoparticle+mat lia-m1, Adjuvant, (Novovax) 01/02/2022 DTaP Dipth/Tet/Acell Pertussis (Infanrix), Peds 08/01/2001,09/04/1997,1996,07/06,1996 HIB PRP-OMP, 3 dose (Pedvax) 06/04/1997,09/12/18 97,1996 Hepatitis B, 0-19 yrs 1996,1996,02/08 IPV - Polio Virus Vaccine (Inact) 2001,06/04/1997,1996,05/05 MMR - Measles/Mumps/Rubella Vaccine 08/01/2001,0 06/04/1997 Meningococcal Conjugate Vacc ine (Menactra/Menveo) 12/12/2014,12/03/2008 PPD 07/29/2022,,04/12/2020,03/22 SEASONAL INFLUENZA, PF, 6 M & Above, [...] encounter Miscellaneous Notes * Telephone Encounter - Reece Dawn [facility] - 02/13/2023 5:19 PM EDT Signed Prescriptions: Disp Refills Celecoxib 200 MG Oral Capsule (CeleBREX) 30 Cap*5 Sig: TAKE BY MOUTH 1 CAPSULE IN THE MORNING. FOR PAIN.Authorizing Provider: Sandra MCCRAY User: REECE DAWN documented in this encounter Plan of Treatment Upcoming Encounters Date Type Specialty Care Team Description 06/09/2023 Office Visit Gastroenterology Meg Swan CRNP [address] [place] [address] Health Maintenance Due Date Last Done Comments Pneumococcal Vaccine: Pediat rics (0 to 5 Years) and At-Risk Patients (6 to 64 Years) (1 - PCV) 2002 GARDASIL-HPV IMMUNIZATION [place] (1 - 2-dose series) 2007 Hepatitis C Screening 2014 Depression Screening 03/24/2020 03/24/2019 COVID-19 Vaccine (2 - 2022-2 4 season) 2023 01/02/2022 Influenza Vaccine (FLU shot) [...] as of this encounter Visit Diagnoses Diagnosis Neck sprain, subsequent encounter Muscle tension headache Tension headache documented in this encounter Care Teams Health Insurance Adjuster Relationship Specialty Start Date End Date Saleem Mccray DO [address] [place] [address] PCP - General Family Medicine 11/28/19 documented as of this encounter
--- OUTSIDE RECORDS SUMMARY | 2023-05-12 19:58 | External Medical Summary | Summary of Care ---
Author Name Unknown Organization [facility] Address [address] [place] [address] Phone [phone] Care Team Providers Care Biomedical Engineer Name Role Phone Saleem Mccray DO Primary Care Provider Encounter Details Date Type Department Care Team Description 12/30/2022 Orders Only Outcomes Research Department [address] [place], [place] [id number] Tejal Choi CHRA [employer] [facility] Other*[id number] Allergies Active Allergy Reactions Severity Noted Date Comments Amoxicillin Nausea/vomiting High 02/23/2018 documented as of this encounter (statuses as of 12/30/2022) Medications Medication Sig Dispensed Refills Start Date [...] as of this encounter (statuses as of 12/30/2022) Active Problems Problem Noted Date Chest pressure 06/24/2022 Advance directive declined by patient Overview: No, Advance Directive brochure offered, patient declined. 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 TDap administered 08/15/18 Tracey Almaguer LPN Viremia 07/17/2002 12/03/2008 documented as of this encounter (statuses as of 12/30/2022) Immunizations Name Administration Dates Next Due Covid-19 Rs-nanoparticle+mat lia-m1, Adjuvant, (Novovax) 01/02/2022 DTaP - Dipth/Tet/Acell Pertussis 002,09/04/1997,1996,07/06,1996 HIB 3 dose (Pedvax) 06/04/1997,1996,1996 Hepatitis B, 0-19 yrs 1996,1996,02/08 IPV - Polio Virus Vaccine (Inact) 2001,06/04/1997,1996,05/05 MMR - Measles/Mumps/Rubella Vaccine 08/01/2001,0 06/04/1997 Meningococcal Conjugate Vacc ine (Menactra/Menveo) 12/12/2014,12/03/2008 PPD 07/29/2022,,04/12/2020,03/22 Seasonal Influenza, PF, 6 mo ns & Above, IM , (Flulaval) 03/06/2022,03/01/2020 Seasonal Influenza, QUAD, wi th Preserv, [...] on file documented as of this encounter Plan of Treatment Upcoming Encounters Date Type Specialty Care Team Description 01/25/2023 Office Visit Gynecology Obstetrics Jennifer Vanegas CRNP [address] [place] [address] 02/16/2023 Office Visit Gynecology Obstetrics Giselle Denny PA-C [address] [place] [address] 06/09/2023 Office Visit Gastroenterology Meg Swan CRNP [address] [place] [address] Scheduled Orders Name Type Priority Associated Diagnoses Orde r Schedule MYCODE SUBSEQUENT ADULT Lab Routine MyCode Research Other*[id number] Every 6 Months for 2 Occurrences starting 12/30/2022 until 01/19/2024 Health Maintenance Due Date Last Done Comments [...] Completed 1996, 04/10, 1996 MENINGOCOCCAL (MENACTRA/MENVEO) Completed , 12/03/2008 Gonorrhea / Chlamydia Screen Discontinued 08/2019, 06/03/2018, 06/29/2017 documented as of this encounter Medical Devices Not on filedocumented as of this encounter Visit Diagnoses Diagnosis MyCode Research Other*[id number] documented in this encounter Care Teams Biomedical Engineer Relationship Specialty Start Date End Date Saleem Mccray DO [address] [place] [address] PCP - General Family Medicine 11/28/19 documented as of this encounter
--- OUTSIDE RECORDS SUMMARY | 2023-05-12 19:59 | External Medical Summary | Summary of Care ---
Author Name Unknown Organization [facility] Address [address] [place] [address] Phone [phone] Care Team Providers Care Transitional Living Specialist Name Role Phone Saleem Mccray DO Primary Care Provider Reason for Referral * Medication Prior Authorization - Closed Specialty Diagnoses / Procedures Referred By Ngoc lee Referred To Contact Diagnoses Mild persistent asthma without complication Saleem Mccray DO [address] [place] [address] Referral ID Status Reason Start Date Expiration Date Visits Re quested Visits Authorized [id number] Closed 999 999 Reason for Visit * Reason Onset Date Comments Medication Problem 11/30/2022 Encounter Details Date Type Department Care Team Description 11/30/2022 Telephone Family Practice [facility] [address] [place] [address] Saleem Mccray DO [address] [place] [address] Medication Problem Allergies Active Allergy Reactions Severity Noted Date Comments Amoxicillin Nausea/vomiting High 02/23/2018 documented as of this encounter (statuses as of 12/01/2022) Medications Medication Sig Dispensed Refills Start Date [...] a day. 60 Cap 3 05/31/2020 Active Additional Information Patient not taking.Reported on 09/09/2022 Cyclobenzaprine HCl 10 MG Oral Tablet (Flexeril) Take 1 Tablet by mouth 3 times a day as needed for Muscle spasms. 0 Active Alyacen 1-35 MG-MCG Oral TabletIndications:En counter for surveillance of contraceptive pills TAKE BY MOUTH 1 TABLET IN THE MORNING. 84 Tablet 4 02/11/2022 Active Pantoprazole Sodium 20 MG Oral Tablet Delayed Release (Protonix) Take 2 Tablets by mouth in the morning. 180 Tablet 0 08/13/2022 Active Celecoxib 200 MG Oral Capsule (CeleBREX)Indication s:Neck sprain, subsequent encounter,Muscle tension headache TAKE BY MOUTH 1 CAPSULE IN THE MORNING. FOR PAIN. 90 Capsule 1 08/15/2022 Active Polyethylene Glycol 3350 17 GM/SCOOP Oral Powder Take 17 g by mouth in the morning. 0 Active Vitamin B-12 1000 MCG Oral Tablet (Cyanocobalamin)Corrine cations:Encounter for long-term (current) use of other medications Take 1 Tablet by mouth in the morning. 100 Tablet 3 10/21/2022 Active Linzess 145 MCG Oral Capsule (linaCLOtide) Take 1 Capsule by mouth in the morning. 90 Capsule 1 11/17/2022 Active Albuterol Sulfate HFA 108 (90 Base) MCG/ACT Inhalation Aerosol SolutionIndications: Mild persistent asthma without complication Inhale 2 Puffs by mouth every 6 hours as needed for Cough, Shortness of Breath or Wheezing. 18 g 2 11/27/2022 Active Fluticasone-Salmeter ol 250-50 MCG/ACT Inhalation Aerosol Powder Breath Activated (Advair Diskus)Indications:M ild persistent asthma without complication Inhale 1 Puff by mouth in the morning and 1 Puff before bedtime. 60 Each 2 11/27/2022 Active Fluticasone-Salmeter ol 250-50 MCG/ACT Inhalation Aerosol Powder Breath Activated (Advair Diskus)Indications:M ild persistent asthma without complication Inhale 1 Puff by mouth in the morning and 1 Puff before bedtime. 60 Each 1 12/01/2022 Active Hospital, Clinic, or Other Facility Administered Medication Ordered Dose Route Frequency Start Date End Date Status Albuterol Sulfate (Proventil) (2.5 MG/3ML) 0.083% inhalation solution 2.5 mgIndications:Mild persistent asthma without complication 2.5 mg NEBULIZER ONCE PRN 11/27/2022 11/27/2023 Acti ve documented as of this encounter (statuses as of 12/01/2022) Active Problems Problem Noted Date Chest pressure 06/24/2022 Advance directive declined by patient Overview: No, Advance Directive brochure offered, patient declined. 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 TDap administered 08/15/18 Tracey Almaguer LPN Viremia 07/17/2002 12/03/2008 documented as of this encounter (statuses as of 12/01/2022) Immunizations Name Administration Dates Next Due Covid-19 [...] encounter Miscellaneous Notes * Telephone Encounter - Saleem Mccray DO - 12/01/2022 12:47 PM EDT Prescription refill for Advair 250-50 inhale 1 puff twice daily dispense as written sent to pharmacy as per request. Please verify insurance formulary alternatives * Telephone Encounter - Chuck Delgadocyndee - 11/30/2022 10:06 AM EDT Received fax from [facility] regarding Advair - "alt requested, we need sent advair romy 1 for ins purposes" documented in this encounter Plan of Treatment Upcoming Encounters Date Type Specialty Care Team Description 12/07/2022 PulmDiagnostic Pulmonary Function [place], Pul Function Tech 2 [address] [place] [address] 12/10/2022 Office Visit Gastroenterology Meg Swan CRNP [address] [place] [address] 02/16/2023 Office Visit Gynecology Obstetrics Giselle Denny PA-C [address] [place] [address] Health Maintenance Due Date Last Done Comments [...] as of this encounter Visit Diagnoses Diagnosis Mild persistent asthma without complication- Primary Unspecified asthma documented in this encounter Care Teams Transitional Living Specialist Relationship Specialty Start Date End Date Saleem Mccray DO [address] [place] [address] PCP - General Family Medicine 11/28/19 documented as of this encounter
--- OUTSIDE RECORDS SUMMARY | 2023-05-12 19:59 | External Medical Summary | Summary of Care ---
Author Name Unknown Organization [facility] Address [address] [place] [address] Phone [phone] Care Team Providers Care Shuttler Car Name Role Phone Saleem Mccray DO Primary Care Provider [phone] Reason for Visit * Reason Onset Date Comments Medication Refill 11/16/2022 Encounter Details Date Type Department Care Team Description 11/16/2022 Refill Gastroenterology, [facility] [address] [place] [address] Meg Elkins CRNP [address] [place] [address] Allergies Active Allergy Reactions Severity Noted Date Comments Amoxicillin Nausea/vomiting High 02/23/2018 documented as of this encounter (statuses as of 11/17/2022) Medications Medication Sig Dispensed Refills Start Date [...] 08/13/2022 Active Celecoxib 200 MG Oral Capsule (CeleBREX)Indicati [...] the morning. 90 Capsule 1 11/17/2022 Active Linzess 145 MCG Oral Capsule (linaCLOtide) TAKE 1 CAPSULE BY MOUTH EVERY DAY BEFORE BREAKFAST 30 Capsule 1 10/16/2022 3 Discontinue d(Refill) documented as of this encounter (statuses as of 11/17/2022) Active Problems Problem Noted Date Chest pressure 06/24/2022 Advance directive declined by patient Overview: No, Advance Directive brochure offered, patient declined. 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/15/18 Tracey Almaguer, GENERAL ASSEMBLER Viremia 07/17/2002 12/03/2008 documented as of this encounter (statuses as of 11/17/2022) Immunizations Name Administration Dates Next Due Covid-19 Rs-nanoparticle+mat lia-m1, Adjuvant, (Novovax) 01/02/2022 DTaP - Dipth/Tet/Acell Pertussis 002,09/04/1997,1996,07/06,1996 HIB 3 dose (Pedvax) 06/04/1997,1996,1996 Hepatitis B, 0-19 yrs 1996,1996,02/08 IPV - Polio Virus Vaccine (Inact) 2001,06/04/1997,1996,05/05 MMR - Measles/Mumps/Rubella Vaccine 08/01/2001,0 06/04/1997 Meningococcal Conjugate Vacc ine (Menactra/Menveo) 12/12/2014,12/03/2008 PPD 07/29/2022,,04/12/2020,03/22 Seasonal Influenza, QUAD, wi th Preserv, 6 [...] encounter Miscellaneous Notes * Telephone Encounter - ANNAMARIE Villalobos - 11/17/2022 9:42 AM EDTSigned Prescriptions: Disp Refills Linzess 145 MCG Oral Capsule (linaCLOtide) 90 Cap*1 Sig: Take 1 Capsule by mouth in the morning. Authorizing Provider: MEG ELKINS * Telephone Encounter - Kimani Cobos RN - 11/16/2022 4:17 PM EDTPending Prescriptions: Disp Refills Linzess 145 MCG Oral Capsule (linaCLOtide) 90 Cap*1 Sig: Take 1 Capsule by mouth in the morning. * Telephone Encounter - Kimani Cobos RN - 11/16/2022 4:16 PM EDT Did you pend patient's preferred pharmacy and medication before forwarding?yes Pharmacy: [id number] [address] [facility] Pending Prescriptions: Disp Refills Linzess 145 MCG Oral Capsule (linaCLOtide)90 Cap*1 Sig: Take 1 Capsule by mouth in the morning. Last Visit: 09/09/2022 (in office), 08/29/2020 (telemedicine) Next Visit: 12/10/2022 If no future appointments scheduled, and last appointment is greater than a year ago, please schedule patient for a follow-up appointment Last date the medication was ordered: 10/16/22 Is this request for a controlled substance?No documented in this encounter Plan of Treatment Upcoming Encounters Date Type Specialty Care Team Description 11/25/2022 Office Visit General Surgery Bayron Yi MD [address] [place] [address] 12/10/2022 Office Visit Gastroenterology Meg Elkins CRNP [address] [place] [address] 02/16/2023 Office Visit Gynecology Obstetrics Giselle Denny PA-C [address] [place] [address] Health Maintenance Due Date Last Done Comments GARDASIL-HPV IMMUNIZATION SERIES (1 - 2-dose series) 2007 Hepatitis C Screening 2014 Depression Screening, Annual for Pts 12 and Over 03/24/2020 03/24/2019 COVID-19 Vaccine (2 - Novavax series) 01/23/2022 01/02/2022 Influenza Vaccine (FLU shot) (#1) 2023 03/06/2022, 03/01/2020, 02/18/2019, Additional history exists Pap Smear 07/09/2023 07/08/2020, 06/29/2017 DTaP,Tdap,and Td Vaccines (9 - Td or Tdap) 11/14/2028 11/14/2018, 07/15/2015, 12/03/2008, Additional history exists Hepatitis B Completed 1996, 04/10, 1996 MENINGOCOCCAL (MENACTRA/MENVEO) Completed 12/12/2014, 12/03/2008 Gonorrhea / Chlamydia Screen Discontinued 01/12/2020, 06/03/2018, 06/29/2017 Pneumococcal Vaccine: Pediatrics (0 to 5 Years) and At-Risk Patients (6 to 64 Years) Aged Out No longer eligible based on patient's age to complete this topic documented as of this encounter Medical Devices Not on filedocumented as of this encounter Care Teams Shuttler Car Relationship Specialty Start Date End Date Saleem Mccray DO [address] [place] [address] PCP - General Family Medicine 11/28/19 documented as of this encounter
--- OUTSIDE RECORDS SUMMARY | 2023-05-12 19:59 | External Medical Summary | Summary of Care ---
Author Name Unknown Organization [facility] Address [address] [place] [address] Phone [phone] Care Team Providers Care Pantry Goods Maker Name Role Phone Saleem Mccray DO Primary Care Provider Reason for Visit * Reason Comments Pulmonary Function Test Encounter Details Date Type Department Care Team Description 12/07/2022 PulmDiagnostic Pulmonary Function Lab, [facility] [address] [facility] [place] [address] [facility] Function Tech 2 [address] [facility] [place] [address] Mild persistent asthma without complication* Allergies Active Allergy Reactions Severity Noted Date Comments Amoxicillin Nausea/vomiting High 02/23/2018 documented as of this encounter (statuses as of 12/07/2022) Medications Medication Sig Dispensed Refills Start Date [...] as of this encounter (statuses as of 12/07/2022) Active Problems Problem Noted Date Chest pressure 06/24/2022 Advance directive declined by patient Overview: No, Advance Directive brochure offered, patient declined. 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/15/18 Tracey Almaguer LPN Viremia 07/17/2002 12/03/2008 documented as of this encounter (statuses as of 12/07/2022) Immunizations Name Administration Dates Next Due Covid-19 [...] Encounters Date Type Specialty Care Team Description 12/10/2022 Office Visit Gastroenterology Meg Swan CRNP [address] [place] [address] 02/16/2023 Office Visit Gynecology Obstetrics Giselle Denny PA-C [address] [place] [address] Health Maintenance Due Date Last Done Comments [...] Primary Unspecified asthma documented in this encounter Administered Medications Active Administered Medications - up to 3 most recent administrations Medication Order MAR Action Action Date Dose Rate Site Albuterol Sulfate (Proventil) (2.5 MG/3ML) 0.083% inhalation solution 2.5 mg 2.5 mg, Nebulizer, ONCE PRN Other, Testing, Starting on 11/27/22 at 0806, Until 11/27/23 at 0805, For 365 days, Only one type of albuterol product should be administered (Nebulizer or Inhaler). Please select and document on the appropriate albuterol product order. Given 12/07/2022 3:01 PM EDT 2.5 mg documented in this encounter Care Teams Pantry Goods Maker Relationship Specialty Start Date End Date Saleem Mccray DO [address] [place] [address] PCP - General Family Medicine 11/28/19 documented as of this encounter
--- OUTSIDE RECORDS SUMMARY | 2023-05-12 19:59 | External Medical Summary | Summary of Care ---
Author Name Unknown Organization [facility] Address [address] [place] [address] Phone [phone] Care Team Providers Care Fast Food Sales Assistant Name Role Phone Saleem Mccray DO Primary Care Provider Reason for Visit * Reason Onset Date Comments Appointment 11/27/2022 PFT Encounter Details Date Type Department Care Team Description 11/27/2022 Telephone Family Practice [facility] [address] [place] [address] Saleem Mccray DO [address] [place] [address] Appointment (PFT) Allergies Active Allergy Reactions Severity Noted Date Comments Amoxicillin Nausea/vomiting High 02/23/2018 documented as of this encounter (statuses as of 11/30/2022) Medications Medication Sig Dispensed Refills Start Date [...] before bedtime. 60 Each 2 11/27/2022 Active Hospital, Clinic, or Other Facility Administered Medication Ordered Dose Route Frequency Start Date End Date Status Albuterol Sulfate (Proventil) (2.5 MG/3ML) 0.083% inhalation solution 2.5 mgIndications:Mild persistent asthma without complication 2.5 mg NEBULIZER ONCE PRN 11/27/2022 11/27/2023 Acti ve documented as of this encounter (statuses as of 11/30/2022) Active Problems Problem Noted Date Chest pressure 06/24/2022 Advance directive declined by patient Overview: No, Advance Directive brochure offered, patient declined. 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 Patient was transferred over to pulmonary to schedule * Telephone Encounter - Cat Curtis - 11/27/2022 10:02 AM EDT LM for pt to call back to schedule a PFT documented in this encounter Plan of Treatment Upcoming Encounters Date Type Specialty Care Team Description 12/07/2022 PulmDiagnostic Pulmonary Function [place], Pulm Function Tech [address] [place] [address] 12/10/2022 Office Visit Gastroenterology Meg Swan CRNP [address] [place] [address] 02/16/2023 Office Visit Gynecology Obstetrics Giselle Denny PA-C [address] [place] [address] Health Maintenance Due Date Last Done Comments [...] filedocumented as of this encounter Care Teams Fast Food Sales Assistant Relationship Specialty Start Date End Date Saleem Mccray DO [address] [place] [address] PCP - General Family Medicine 11/28/19 documented as of this encounter
--- OUTSIDE RECORDS SUMMARY | 2023-05-12 19:59 | External Medical Summary | Summary of Care ---
Author Name Unknown Organization [facility] Address [address] [place] [address] Phone [phone] Care Team Providers Care Water Softener Service Supervisor Name Role Phone Saleem Mccray DO Primary Care Provider Reason for Referral * Medication Prior Authorization - Closed Specialty Diagnoses / Procedures Referred By Ngoc lee Referred To Contact Diagnoses Mild persistent asthma without complication Saleem Mccray DO [address] [place] [address] Referral ID Status Reason Start Date Expiration Date Visits Re quested Visits Authorized [id number] Closed 999 999 Reason for Visit * Reason Comments Follow Up Shortness a breath Encounter Details Date Type Department Care Team Description 11/27/2022 Telemedicine Family Practice [facility] [address] [place] [address] Saleem Mccray DO [address] [place] [address] Mild persistent asthma without complication* Allergies Active Allergy Reactions Severity Noted Date Comments Amoxicillin Nausea/vomiting High 02/23/2018 documented as of this encounter (statuses as of 12/11/2022) Medications Medication Sig Dispensed Refills Start Date [...] spasms. 0 Active Alyacen 1-35 MG-MCG Oral TabletIndications:E ncounter for surveillance of contraceptive pills TAKE BY MOUTH 1 TABLET IN THE MORNING. 84 Tablet 4 02/11/2022 Active Celecoxib 200 MG Oral Capsule (CeleBREX)Indicatio ns:Neck sprain, subsequent encounter,Muscle tension headache TAKE BY MOUTH 1 CAPSULE IN THE MORNING. FOR PAIN. 90 Capsule 1 08/15/2022 Active Polyethylene Glycol 3350 17 GM/SCOOP Oral Powder Take 17 g by mouth in the morning. 0 Active Vitamin B-12 1000 MCG Oral Tablet (Cyanocobalamin)Ind ications:Encounter for long-term (current) use of other medications Take 1 Tablet by mouth in the morning. 100 Tablet 3 10/21/2022 Active Linzess 145 MCG Oral Capsule (linaCLOtide) Take 1 Capsule by mouth in the morning. 90 Capsule 1 11/17/2022 Active Albuterol Sulfate HFA 108 (90 Base) MCG/ACT Inhalation Aerosol SolutionIndications :Mild persistent asthma without complication Inhale 2 Puffs by mouth every 6 hours as needed for Cough, Shortness of Breath or Wheezing. 18 g 2 11/27/2022 Active Fluticasone-Salmete rol 250-50 MCG/ACT Inhalation Aerosol Powder Breath Activated (Advair Diskus)Indications: Mild persistent asthma without complication Inhale 1 Puff by mouth in the morning and 1 Puff before bedtime. 60 Each 2 11/27/2022 Active Pantoprazole Sodium 20 MG Oral Tablet Delayed Release (Protonix) Take 2 Tablets by mouth in the morning. 180 Tablet 0 08/13/2022 3 Discontinue d(Refill) Hospital, Clinic, or Other Facility Administered Medication Ordered Dose Route Frequency Start Date End Date Status Albuterol Sulfate (Proventil) (2.5 MG/3ML) 0.083% inhalation solution 2.5 mgIndications:Mild persistent asthma without complication 2.5 mg NEBULIZER ONCE PRN 11/27/2022 11/27/2023 Acti ve documented as of this encounter (statuses as of 12/11/2022) Active Problems Problem Noted Date Chest pressure 06/24/2022 Advance directive declined by patient Overview: No, Advance Directive brochure offered, patient declined. 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 TDap administered 08/15/18 Tracey Almaguer LPN Viremia 07/17/2002 12/03/2008 documented as of this encounter (statuses as of 12/11/2022) Immunizations Name Administration Dates Next Due Covid-19 [...] as of this encounter Progress Notes * Saleem Mccray, - 11/27/2022 7:57 AM EDT Images from the original note were not included. History of Present Illness Ewelina Reyes is a 27 year old female that presents for Follow Up (Shortness a breath) Patient is a 27-year-old male with history of asthma. Patient complains of increased frequency of shortness of breath and wheezing. Patient denies cough or sputum. Patient denies nasal congestion sore throat or earache. Patient denies fatigue fever chills or sweats. Patient denies chest pain palpitations or edema. Review of systems otherwise negative Physical Exam There were no vitals filed for this visit. BP Readings from Last 3 Encounters: 12/10/22 122/70 10/20/22 124/78 09/09/22 120/74 Wt Readings from Last 3 Encounters: 12/10/22 62.3 kg (137 lb 4.8 oz) 10/30/22 63.6 kg (140 lb 3.2 oz) 10/20/22 62.6 kg (138 lb) BMI Readings from Last 3 Encounters: 12/10/22 22.16 kg/m 10/30/22 22.63 kg/m 10/20/22 22.27 kg/m General: alert, healthy and no distress Head: Normocephalic, No masses, lesions, tenderness or abnormalities Eye Exam: PERRLA, extraocular movements intact, conjunctiva are pink and non- injected, sclera clear Skin: skin color, texture, turgor are normal, no rashes or significant lesions Physical exam limited due to telemedicine visit I have reviewed the following results: None Assessment and Plan Mild persistent asthma without complication - SPIROMETRY B/A BRONCHODILATOR; Future - Albuterol Sulfate HFA 108 (90 Base) MCG/ACT Inhalation Aerosol Solution; Inhale 2 Puffs by mouth every 6 hours as needed for Cough, Shortness of Breath or Wheezing. - Fluticasone-Salmeterol 250-50 MCG/ACT Inhalation Aerosol Powder Breath Activated (Advair Diskus);Inhale 1 Puff by mouth in the morning and 1 Puff before bedtime. Wrap-Up Time: I spent a total of 20-29 minutes (exact time 20 mins) on the date of service in preparation, delivery, and documentation of the care provided to Ewelina Reyes excluding any time spent in the performance of separately billed services. Telemedicine: Patient location: HOME. I was in a hospital or clinic location. After connecting through [employer],patient was verified with two unique identifiers. Patient (or authorized legal sales representative womens health) was then informed that this was a Telemedicine visit and being conducted confidentially over secure lines. Methods to assure confidentiality were taken. Patient acknowledged consent and understanding of pr ivacy and security of the Telemedicine visit. The patient agreed to participate. documented in this encounter Plan of Treatment Upcoming Encounters Date Type Specialty Care Team Description 02/16/2023 Office Visit Gynecology Obstetrics Giselle Denny PA-C [address] [place] [id number] 06/09/2023 Office Visit Gastroenterology Meg Swan CRNP [address] [place] [id number] Health Maintenance Due Date Last Done Comments [...] Not on filedocumented as of this encounter Results * SPIROMETRY B/A BRONCHODILATOR (12/07/2022 2:47 PM EDT) FVC Actual Pre 4.13 L GEISI LULÚER [facility] FVC Actual Pre %Predict 103 % [facility] FVC Actual Post 4.07 L ENMANUEL TIAN [facility] FVC Actual Post %Change -1 % [facility] FEV1 Actual Pre 3.51 L ENMANUEL TIAN [facility] FEV1 Actual Pre %Predict 102 % [facility] FEV1 Actual Post 3.74 L [facility] FEV1 Actual Post %Change 6 % [facility] FEV1/FVC Actual Pre 85 % [facility] FEV1/FVC Actual Post 92 % [facility] FEF 25-75% Actual Pre 3.85 L/sec [facility] FEF 25-75% Actual Pre %Predict 99 % [facility] FEF 25-75% Actual Post 4.33 L/sec [facility] FEF 25-75% Actual Post %Change 12 % [facility] 12/07/2022 2:47 PM EDT Narrative [facility] - 12/07/2022 2:47 PM EDT Pulmonary function testing shows normal ventilatory pattern. FEV1 is 3.51 L, 102% of predicted. Positive bronchodilator response noted only in smaller airways. Flow volume loop shows normal ventilatory pattern. OVERALL IMPRESSION: Normal Ventilatory Pattern .This interpretation has been electronically signed: SOPHY POLLACK DR. 12/10/2022 12:40:28 PM Saleem Mccray DO MEDICINE CHARLEY MOLINA documented in this encounter Visit Diagnoses Diagnosis Mild persistent asthma without complication- Primary Unspecified asthma Mild persistent asthma without complication- Primary Unspecified asthma documented in this encounter Care Teams Water Softener Service Supervisor Relationship Specialty Start Date End Date Saleem Mccray DO [address] [place] [address] PCP - General Family Medicine 11/28/19 documented as of this encounter
--- OUTSIDE RECORDS SUMMARY | 2023-05-12 19:59 | External Medical Summary | Summary of Care ---
Author Name Unknown Organization [facility] Address [address] [place] [address] Phone [phone] Care Team Providers Care Cnc Grinder Name Role Phone Saleem Mccray DO Primary Care Provider Reason for Visit * Reason Comments Follow Up 3 month follow up, wolfgang rojas- chronic constipation Encounter Details Date Type Department Care Team Description 12/10/2022 Office Visit Gastroenterology, [facility] [address] [place] [address] Meg Swan CRNP [address] [place] [address] Gastroesophageal reflux disease without esophagitis*; Chronic constipation Allergies Active Allergy Reactions Severity Noted Date Comments Amoxicillin Nausea/vomiting High 02/23/2018 documented as of this encounter (statuses as of 12/10/2022) Medications Medication Sig Dispensed Refills Start Date [...] before bedtime. 60 Each 2 11/27/2022 Active Fluticasone-Salmete rol 250-50 MCG/ACT Inhalation Aerosol Powder Breath Activated (Advair Diskus)Indications: Mild persistent asthma without complication Inhale 1 Puff by mouth in the morning and 1 Puff before bedtime. 60 Each 1 12/01/2022 Active Pantoprazole Sodium 20 MG Oral Tablet Delayed Release (Protonix) Take 1 Tablet by mouth at bedtime. 90 Tablet 3 12/10/2022 Active Pantoprazole Sodium 20 MG Oral Tablet [...] as of this encounter (statuses as of 12/10/2022) Active Problems Problem Noted Date Chest pressure 06/24/2022 Advance directive declined by patient Overview: No, Advance Directive brochure offered, patient declined. 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 TDap administered 08/15/18 Tracey Almaguer LPN Viremia 07/17/2002 12/03/2008 documented as of this encounter (statuses as of 12/10/2022) Immunizations Name Administration Dates Next Due Covid-19 [...] on file documented as of this encounter Last Filed Vital Signs Vital Sign Reading Time Taken Comments Blood Pressure 122/70 12/10/2022 2:07 PM EDT Pulse 78 12/10/2022 2:07 PM EDT Temperature 37.1 C (98.7 F) 12/10/2022 2:07 PM ED T Respiratory Rate - - Oxygen Saturation 100% 12/10/2022 2:07 PM EDT Inhaled Oxygen Concentration - - Weight 62.3 kg (137 lb 4.8 oz) 12/10/2022 2:07 P M EDT Height - - Body Mass Index 22.16 06/24/2022 3:59 PM EST documented in this encounter Progress Notes * Meg Hu ANNAMARIE Swan - 12/10/2022 2:17 PM EDT DATE OF SERVICE: 12/10/22 REFERRING PHYSICIAN: Saleem Mccray DO CC: F/U constipation HPI: 12/10/22: Pt was started on Linzess 145 mcg daily for constipation. States that she has daily bowelmovements but the stools are very watery. Denies abdominal pain, cramping, rectal bleeding or nocturnal awakening. Recently she is having some nausea but unsure of etiology. States that acid reflux is actually well controlled on pantoprazole 20 mg daily. Took a test recently and it was negative. 09/09/22: Patient was at [facility] with complaints of chest tightness back in June. Workup does not point to any acute cardiopulmonary issues. Eventually noted that her pain is mostly in the epigastric area to right upper quadrant abdominal area. She feels bloated all the time. Despite taking MiraLax, Colace she still has trouble regulating her bowel habits. Sometimes may have no bowel movements several days after taking stool softeners and laxatives. Without these agents she may have bowel movements only once a week. No rectal bleeding. No nausea or vomiting. Telephone Visit 08/29/2020: After connecting to the patient via telephone, the patient was identified by name and date of . Patient was then informed that this was a telephone call only visit. The patient agreed to participate. Visit Disposition: Routine follow-up Total call duration was 5-10 minutes. Feeling well. Making healthy dietary changes. Upper abd pain is actually improving on GERD therapy. No GERD breakthrough. No nausea, vomiting. Bowels moving well. No diarrhea/constipation. No black or bloody stools. 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 No fever, chills, CP, SOB. Office Visit 03/01/2020 :Notes symptoms unchanged. Upper abd pain, can radiate to back and RUQ whensevere. Random. Not always with PO intake. Sharp. Lasts about an hour. Remains nausead. No vomiting. Her GERD is worsening. This is worse mid day. Burning and regurgitation despite PPI 40 mg daily. Will take an additional dose with relief. NO burping/belching. Bowels alternate. No black stools but did have blood in stools x 3 days. This is new. This was BRB. No clots. Mixed in the stools. Not when wiping or in the water. Still very active - running 5 miles a day. No fever, chills, CP, SOB. Office Visit 11/28/2019 :24 year old female with history of lactose intolerance and others below who presents for evaluation of epigastric abdominal pain at the request of Dr. Horta.Symptoms tarted about 10 months ago. Notes her symptoms are epigastric in location. Occurs random. Not associated with PO intake. Pain is sharp and stabbing. Lasts about 60 minutes. There nausea. She did go to the ED x 1 about 3 three weeks ago she had emesis. She tells me she had labs and ABD Us and this was negative. Has not vomited since. She does have GERD. Worsening. Has symptoms despite PPI and Tums. Daily. Burning. She alternating stools. Diarrhea/constipation. No black or bloody stools. Weight is stable. No fever, chills, CP, SOB. Does not follow a dairy free diet. NSAIDs:noneETOH:noneCaffeine: 2 cups dailySteroids: noneABX:none CT abd/pelvis w contrast 06/2012 (at [facility]): unremarkable. HIDA 2019: NORMAL ABD US 2019:1. No evidence of cholelithiasis, cholecystitis or biliary ductal dilatation. 2. Normal liver and right kidney. 3. Limited evaluation of pancreas EGD/EUS 2020: Normal esophagus. - Z-line regular, 37 cm from the incisors. - Erythematous mucosa in the antrum. Biopsied. - Normal duodenal bulb and second portion of the duodenum.There was no sign of significant pathology in the ampulla. - There was no sign of significant pathology in the common bile duct. - There was no sign of significant pathology in the gallbladder. No stones. - There was no evidence of significant pathology in the visualized portion of the liver. - There was no sign of significant pathology in the entire pancreas. - Endosonographic images of the left adrenal gland were unremarkable. - The celiac trunk was endosonographically normal. EGD 2018:Normal upper third of esophagus, middle third of esophagus and lower third of esophagus. - Z-line regular, 39 cm from the incisors. - Normal stomach. Biopsied. - Normal examined duodenum. Biopsied. EGD 2013:No gross lesions in duodenum. - No gross lesions in the stomach. - No gross lesions in esophagus. Colonoscopy 2013:The examined portion of the ileum was normal. Biopsied. - The ascending colon is normal. Biopsied. - The transverse colon is normal. Biopsied. - The descending colon is normal. Biopsied. - The rectosigmoid colon is normal. Biopsied. EGD 2011:No gross lesions in duodenum. - No gross lesions in the stomach. - No gross lesions in esophagus. 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 lactose Irregular periods Ovarian cyst denies recent cysts 09/2018 Family History Problem Relation Age of Onset Hypertension Mother Multiple Sclerosis Mother Other (appendectomy) Mother Clotting disorder Mother blood clots No Known Problems Father Other (RICARDO) Grandmother (Maternal) mom No Known Problems Brother (Half) No Known Problems Sister (Half) Past Surgical History: Procedure Laterality Date COLONOSCOPY W/ BIOPSY (RECTUM) 07/03/2013 COLONOSCOPY FLEXIBLE WITH BIOPSY performed by Rajwinder Hay MD at [facility] [place]EC 2013 EGD, FLEXIBLE, DIAGNOSTIC 09/14/2017 normal bx/ESOPHAGOGASTRODUODENOSCOPY (EGD), FLEXIBLE, TRANSORAL, DIAGNOSTIC performed by Jb Montoya MD at ENDOSCOPY [facility] EGD, FLEXIBLE, DIAGNOSTIC 12/15/2019 gastric irritation on bx / ESOPHAGOGASTRODUODENOSCOPY (EGD), FLEXIBLE, TRANSORAL, DIAGNOSTIC performed by Lubna King MD at ENDOSCOPY [facility] EGD, FLEXIBLE, W/BIOPSY 09/04/2011 UPPER GI ENDOSCOPY WITH BIOPSY SINGLE OR MULTIPLE performed by RAJWINDER HAY at [facility] [facility] [place], FLEXIBLE, W/BIOPSY 07/03/2013 ESOPHAGOGASTRODUODENOSCOPY (EGD), FLEXIBLE, TRANSORAL, WITH BIOPSY SINGLE OR MULTIPLE performed by Rajwinder Hay MD at [facility] [place]GD, W/ENDOSCOPIC US 12/15/2019 normal / ESOPHAGOGASTRODUODENOSCOPY (EGD), FLEXIBLE, TRANSORAL, ENDOSCOPIC ULTRASOUND performed by Lubna King MD at ENDOSCOPY [facility] LAPAROSCOPY;APPENDECTOMY 10/31/2014 10/31/2014 Laparoscopic appendectomy 10/31/14 Dr. Dubon at [facility] Social History Tobacco Use Smoking status: Never Smokeless tobacco: Never Vaping Use Vaping Use: Never used Substance Use Topics Alcohol use: Not Currently Comment: denies in 2019 Drug use: No Comment: denies ever Review of patient's allergies indicates: Allergen Reactions Amoxicillin Nausea/vomiting Current Outpatient Medications Medication Sig Dispense Refill ondansetron ODT (ZOFRAN) 4 MG TBDP TAKE 1 TABLET BY MOUTH EVERY 6 HOURS NEEDED FOR NAUSEA AND VOMITING Calcium Carbonate Antacid 750 MG Oral Tablet Chewable Take 2 Tablets by mouth 3 times a day as needed for Heartburn. Docusate Sodium 100 MG Oral Capsule (Colace) Take 1 Cap by mouth 2 times a day. 60 Cap 3 Cyclobenzaprine HCl 10 MG Oral Tablet (Flexeril) Take 1 Tablet by mouth 3 times a day as neededfor Muscle spasms. Alyacen 1/35 1-35 MG-MCG Oral Tablet TAKE BY MOUTH 1 TABLET IN THE MORNING. 84 Tablet 4 Pantoprazole Sodium 20 MG Oral Tablet Delayed Release (Protonix) Take 2 Tablets by mouth in themorning. 180 Tablet 0 Celecoxib 200 MG Oral Capsule (CeleBREX) TAKE BY MOUTH 1 CAPSULE IN THE MORNING. FOR PAIN. 90 Capsule 1 Polyethylene Glycol 3350 17 GM/SCOOP Oral Powder Take 17 g by mouth in the morning. Vitamin B-12 1000 MCG Oral Tablet (Cyanocobalamin) Take 1 Tablet by mouth in the morning. 100 Tablet 3 Linzess 145 MCG Oral Capsule (linaCLOtide) Take 1 Capsule by mouth in the morning. 90 Capsule 1 Albuterol Sulfate HFA 108 (90 Base) MCG/ACT Inhalation Aerosol Solution Inhale 2 Puffs by mouthevery 6 hours as needed for Cough, Shortness of Breath or Wheezing. 18 g 2 Fluticasone-Salmeterol 250-50 MCG/ACT Inhalation Aerosol Powder Breath Activated (Advair Diskus) Inhale 1 Puff by mouth in the morning and 1 Puff before bedtime. 60 Each 2 Fluticasone-Salmeterol 250-50 MCG/ACT Inhalation Aerosol Powder Breath Activated (Advair Diskus) Inhale 1 Puff by mouth in the morning and 1 Puff before bedtime. 60 Each 1 Current Facility-Administered Medications Medication Dose Route Frequency Provider Last Rate Last Admin Albuterol Sulfate (Proventil) (2.5 MG/3ML) 0.083% inhalation solution 2.5 mg 2.5 mg Nebulizer Once PRN Saleem Mccray DO 2.5 mg at 12/07/22 1501 REVIEW OF SYSTEMS: See HPI above; All other findings negative. EXAM: Filed Vitals: 12/10/22 1407 BP: 122/70 Pulse: 78 Temp: 37.1 C (98.7 F) SpO2: 100% Weight: 62.3 kg (137 lb 4.8 oz) GENERAL: Well developed and well nourished in no acute distress. SKIN: No rashes, ulcers, jaundice or spider angiomata. HEENT: Normocephalic, sclera clear. NECK: Supple, trachea midline, no JVD. LUNGS: Clear to auscultation bilaterally, no respiratory distress or accessory muscles used. HEART: Regular rate & rhythm, no murmurs and no gallops. ABDOMEN: Normal bowel sounds, soft and nontender EXTREMITIES: No palmar erythema, no ankle edema, no skin discoloration, no clubbing, no cyanosis. NEURO: No lateralizing findings. Sensory/Motor grossly normal ASSESSMENT AND PLAN: Ewelina Reyes is a 27 year old female w c/o bloating, R sided abd pain.Trial of Dicyclomine, PPI wo relief. Prior workup evaluation with EGD, EUS, colonoscopy, CT abdomenand pelvis, HIDA scan were all unremarkable. She notes that her constipation is not well managed despite taking MiraLax and Colace. Constipation relieved w Linzess 145mcg daily but stools are very watery. - May decrease Linzess to 145mcg every other day and use fiber 2 tsp daily. Alternatively may decrease Linzess to 72mcg daily or switch to Trulance 3mg daily - Pantoprazole 20mg daily - Increase fiber and water in diet; stay physically active - Will need to use alternative meds that's safe in , if status change (recent test negative per pt). I spent a total of 30 minutes on the date of service in review of patient's record, and previously obtained information in person and appropriate medical visit, discussion and education of plan, withpatient and/or caregiver, placing orders for tests/referral/procedures as medically necessary and documentation of pertinent clinical information in patient's medical records for their visit today. RETURN TO CLINIC: 6 months or sooner [facility]in [facility], [facility] documented in this encounter Nursing Notes * Fatou Falk LPN - 12/10/2022 2:10 PM EDT Patient identified by name and date of . Chief Complaint Patient presents with Follow Up 3 month follow up, venkat- chronic constipation documented in this encounter Plan of Treatment Upcoming Encounters Date Type Specialty Care Team Description 02/16/2023 Office Visit Gynecology Obstetrics Giselle Denny PA-C [address] [place] [address] 06/09/2023 Office Visit Gastroenterology Meg Swan CRNP [address] [place] [address] Health Maintenance Due Date Last Done Comments [...] as of this encounter Visit Diagnoses Diagnosis Gastroesophageal reflux disease without esophagitis- Primary Esophageal reflux Chronic constipation Unspecified constipation documented in this encounter Care Teams Cnc Grinder Relationship Specialty Start Date End Date Saleem Mccray DO [address] [place] [address] PCP - General Family Medicine 11/28/19 documented as of this encounter
[2023-05-12] MEDS ORDERED: PANTOprazole 40 MG TAB PO SCH (21:00)
[2023-05-12] MEDS ORDERED: BUTALBITAL/ACETAMIN/CAFFEINE TAB PO STA (21:13)
[2023-05-12 22:02] LABS: Lyme Ab IgG w/WB Rflx Negative (Negative)
[2023-05-12 22:03] LABS: Lyme Ab IgM w/WB Rflx Positive (Negative)
[2023-05-12] MEDS ORDERED: KETOROLAC TROMETHAMINE 15 MG/ML VIAL IV PRN (22:53)
[2023-05-13] MEDS ORDERED: DOXYCYCLINE HYCLATE 100 MG in DEXTROSE 5% MINI-B 100 ML IV SCH (06:00)
[2023-05-13] MEDS ORDERED: cefTRIAXone SODIUM 2,000 MG in DEXTROSE 5 % MINI-B 50 ML IV SCH (06:00)
[2023-05-13 06:17] LABS: Basophils # (auto) 0.05 K/uL (0.00-0.20); Basophils % (auto) 0.7 %; Eosinophils # (auto) 0.46 K/uL (0.00-0.50); Eosinophils % (auto) 6.7 %; Hematocrit (blood only) 37.7 % (37.0-47.0); Hemoglobin 12.8 g/dl (12.0-16.0); Immature Granulocytes # (auto) 0.02 K/uL (0.01-0.20); Immature Granulocytes % (auto) 0.3 %; Lymphocytes # (auto) 2.16 K/uL (1.20-3.40); Lymphocytes % (auto) 31.6 %; Mean Corpuscular Hemoglobin 30.6 pg (25.0-34.0); Mean Corpuscular Volume 90.2 fL (80.0-100.0); Mean Platelet Volume 9.5 fL (9.4-12.4); Monocytes # (auto) 0.66 K/uL (0.11-0.59); Monocytes % (auto) 9.6 %; Neutrophils # (auto) 3.49 K/uL (1.40-6.50); Neutrophils % (auto) 51.1 %; Platelet Count 268 K/uL (130-400); RDW Coefficient of Variation 11.7 % (11.5-14.5); RDW Standard Deviation 38.9 fL (36.4-46.3); Red Blood Count 4.18 M/uL (4.20-5.40); White Blood Count 6.84 K/ul (4.8-10.8)
[2023-05-13 06:34] LABS: BUN Creatinine Ratio 16.3 (10-20); Calcium 9.2 mg/dl (8.6-10.3); Est GFR (African American) 107.3 ml/min; Est GFR (Non-African American) 92.6 ml/min; Potassium 4.1 mmol/L (3.5-5.1)
[2023-05-13 07:41] LABS: Estimated Average Glucose 103 mg/dl; Hemoglobin A1C 5.2 % (4.5-5.6)
[2023-05-13] MEDS ORDERED: SODIUM CHLORIDE 0.9% 1,000 ML IV SCH (07:45)
--- NOTE | 2023-05-13 08:03 | Hospitalist Progress Note ---
Date of Service May 13, 2023 Assessment & Plan (1) Change in vision: (2) Tremulousness: (3) Headache: Plan: Patient is a 28-year-old female with PMH GERD, chronic constipation, depression presented to ER with complaint of initial pain behind right eye with blurry vision right eye followed by frontal DUKE with continued blurry vision right eye with associated paresthesias bilateral hands, reported weakness upper and lower extremities In ER vitals stable. No leukocytosis, no significant electrolyte abnormality. Negative urine . Negative urine drug screen. CT Head: No acute intracranial abnormality. CTA Head and chest: Unremarkable CT angiogram of the brain. Unremarkable CT angiogram of the neck. MRI Brain unremarkable DDX: CVA, seizure, atypical migraine, temporal arteritis, and others less likely suspect CVA at this time. lower suspicion for seizure as pt A&O throughout course. No temporal tenderness to palpation Patient had telestroke neurology evaluation in ER and no thrombolytics recommended TSH, B12 pending EEG Lyme pending Tylenol, Toradol prn DUKE Neurology consult Spoke with ophthalmology and suggests follow up with Dr Moran office outpatient CBC, BMP in am (4) Depression: Plan: Continue bupropion (5) GERD (gastroesophageal reflux disease): Plan: Continue PPI (6) Chronic constipation: Plan: Miralax prn. Continue Linzess prn DVT Prophylaxis SCDs Follows with Dr Mccray for routine care Admission and Anticipated Discharge Date Admission Date: May 12, 2023 Subjective Pt seen in follow up of stroke -like symptoms, imaging negative , +Lyme IgM Results & Data Results & Data Vital Signs (Past 12 Hours) Vital Signs Temp Pulse Pulse Resp BP BP BP 05/13/23 07:34 36.8 C 71 16 109/75 05/13/23 07:29 77 05/13/23 04:00 36.7 C 83 18 117/73 05/13/23 01:14 75 05/13/23 00:00 75 19 117/66 05/12/23 20:35 79 21 133/85 Pulse Ox O2 Del Method 05/13/23 07:34 100 Room Air 05/13/23 07:29 05/13/23 04:00 99 Room Air 05/13/23 01:14 05/13/23 00:00 97 Room Air 05/12/23 20:35 100 Room Air Laboratory Results 05/13/23 05/12/23 05/12/23 Range/Units 05:55 Unknown 21:06 WBC 6.84 (4.8-10.8) K/ul RBC 4.18 L (4.20-5.40) M/uL Hgb 12.8 (12.0-16.0) g/dl POC Hgb (12.0-16.0) g/dl Hct 37.7 (37.0-47.0) % POC Hct (37-47) % MCV 90.2 (80.0-100.0) fL MCH 30.6 (25.0-34.0) pg MCHC 34.0 (32.0-36.0) g/dL RDW Std Deviation 38.9 (36.4-46.3) fL RDW Coeff of Nita 11.7 (11.5-14.5) % Plt Count 268 (130-400) K/uL MPV 9.5 (9.4-12.4) fL Immature Gran % (Auto) 0.3 % Neut % (Auto) 51.1 % Lymph % (Auto) 31.6 % Schley % (Auto) 9.6 % Eos % (Auto) 6.7 % Baso % (Auto) 0.7 % Neut # (Auto) 3.49 (1.40-6.50) K/uL Lymph # (Auto) 2.16 (1.20-3.40) K/uL Schley # (Auto) 0.66 H (0.11-0.59) K/uL Eos # (Auto) 0.46 (0.00-0.50) K/uL Baso # (Auto) 0.05 (0.00-0.20) K/uL Immature Gran # (Auto) 0.02 (0.01-0.20) K/uL PT (9.0-12.0) Seconds INR (0.9-1.1) APTT (21-31) Seconds PTT Ratio POC Sodium (135-144) mmol/L Sodium 138 (136-145) mmol/L POC Potassium (3.3-5.0) mmol/L Potassium 4.1 (3.5-5.1) mmol/L POC Chloride (101-112) mmol/L Chloride 105 (98-107) mmol/L Carbon Dioxide 26 (21-32) mmol/L POC Total CO2 (24-31) mmol/L Anion Gap 7 (3-11) POC Anion Gap (16-25) mmol/L POC BUN (7-18) mg/dl BUN 14 (6-23) mg/dl Creatinine 0.86 (0.6-1.2) mg/dl POC Creatinine (0.6-1.3) mg/dl Est Cr Clr Drug Dosing 92.0 ml/min Est GFR ( Amer) 107.3 ml/min Est GFR (Non-Af Amer) 92.6 ml/min BUN/Creatinine Ratio 16.3 (10-20) Glucose 88 (70-99(Fasting)) mg/dl POC Glucose (70-99) mg/dl POC Glucose (other) (70-99) mg/dl Estimat Average Glucose 103 mg/dl Hemoglobin A1c 5.2 (4.5-5.6) % Calcium 9.2 (8.6-10.3) mg/dl POC Ioniz Calcium Justin (1.12-1.32) mmol/l Magnesium (1.7-2.4) mg/dl Total Bilirubin (0.2-1.0) mg/dl AST (13-39) U/L ALT (7-52) U/L Alkaline Phosphatase (34-104) U/L Troponin I High Sens (0-14) pg/ml Total Protein (6.0-8.3) gm/dl Albumin (3.4-5.0) gm/dl Globulin (2.5-4.0) gm/dl Albumin/Globulin Ratio (0.9-2) Triglycerides 99 (0-150) mg/dl Cholesterol 184 (0-200) mg/dl LDL Cholesterol, Calc 102 mg/dl VLDL Cholesterol, Calc 20 (0-30) mg/dl HDL Cholesterol 62 mg/dl Cholesterol/HDL Ratio 3.0 (0-5) Vitamin B12 (180-914) pg/ml TSH (0.300-4.500) uIu/ml Urine Color Yellow Urine Appearance Clear (Clear) Urine pH 7.0 (4.5-7.5) Ur Specific [place] 1.004 (1.000-1.030) Urine Protein Negative (Negative) Urine Glucose (UA) Negative (Negative) Urine Ketones Negative (Negative) Urine Blood Negative (Negative) Urine Nitrite Negative (Negative) Urine Bilirubin Negative (Negative) Urine Urobilinogen Negative (Negative) Ur Leukocyte Esterase Negative (Negative) POC Ur Test (NEG) Salicylates (3.0-30) mg/dl Urine Opiates Screen Neg (Neg) Ur Methadone, Qual Neg (Neg) Acetaminophen (10-30) ug/ml Urine Barbiturates Neg (Neg) Ur Phencyclidine (PCP) Neg (Neg) U Amphetamin/Meth Scrn Neg (Neg) MDMA (Ecstasy) Screen Neg (Neg) U Benzodiazepines Scrn Neg (Neg) Ur Cocaine Metabolite Neg (Neg) U Marijuana (THC) Screen Neg (Neg) Lyme Disease IgG Ab Negative (Negative) Lyme IgG (Western Blot) Pending Lyme IgG 18 kDa Band Pending Lyme IgG 23 kDa Band Pending Lyme IgG 28 kDa Band Pending Lyme IgG 30 kDa Band Pending Lyme IgG 39 kDa Band Pending Lyme IgG 41 kDa Band Pending Lyme IgG 45 kDa Band Pending Lyme IgG 58 kDa Band Pending Lyme IgG 66 kDa Band Pending Lyme IgG 93 kDa Band Pending Lyme IgM Ab (WB) Pending Lyme Disease IgM Ab Positive A (Negative) Lyme IgM 23 kDa Band Pending Lyme IgM 39 kDa Band Pending Lyme IgM 41 kDa Band Pending 05/12/23 05/12/23 05/12/23 Range/Units 17:18 12:21 12:19 WBC 9.99 (4.8-10.8) K/ul RBC 4.53 (4.20-5.40) M/uL Hgb 14.1 (12.0-16.0) g/dl POC Hgb 14.6 (12.0-16.0) g/dl Hct 40.8 (37.0-47.0) % POC Hct 43 (37-47) % MCV 90.1 (80.0-100.0) fL MCH 31.1 (25.0-34.0) pg MCHC 34.6 (32.0-36.0) g/dL RDW Std Deviation 38.5 (36.4-46.3) fL RDW Coeff of Nita 11.8 (11.5-14.5) % Plt Count 311 (130-400) K/uL MPV 9.8 (9.4-12.4) fL Immature Gran % (Auto) 0.4 % Neut % (Auto) 65.3 % Lymph % (Auto) 24.2 % Schley % (Auto) 5.1 % Eos % (Auto) 4.3 % Baso % (Auto) 0.7 % Neut # (Auto) 6.52 H (1.40-6.50) K/uL Lymph # (Auto) 2.42 (1.20-3.40) K/uL Schley # (Auto) 0.51 (0.11-0.59) K/uL Eos # (Auto) 0.43 (0.00-0.50) K/uL Baso # (Auto) 0.07 (0.00-0.20) K/uL Immature Gran # (Auto) 0.04 (0.01-0.20) K/uL PT 10.8 (9.0-12.0) Seconds INR 1.0 (0.9-1.1) APTT 28 (21-31) Seconds PTT Ratio 1.0 POC Sodium 139 (135-144) mmol/L Sodium 139 (136-145) mmol/L POC Potassium 4.0 (3.3-5.0) mmol/L Potassium 3.9 (3.5-5.1) mmol/L POC Chloride 104 (101-112) mmol/L Chloride 104 (98-107) mmol/L Carbon Dioxide 25 (21-32) mmol/L POC Total CO2 26 (24-31) mmol/L Anion Gap 10 (3-11) POC Anion Gap 14.0 L (16-25) mmol/L POC BUN 16 (7-18) mg/dl BUN 16 (6-23) mg/dl Creatinine 0.88 (0.6-1.2) mg/dl POC Creatinine 0.9 (0.6-1.3) mg/dl Est Cr Clr Drug Dosing 89.9 ml/min Est GFR ( Amer) 104.4 ml/min Est GFR (Non-Af Amer) 90.0 ml/min BUN/Creatinine Ratio 18.2 (10-20) Glucose 82 (70-99(Fasting)) mg/dl POC Glucose 84 (70-99) mg/dl POC Glucose (other) 85 (70-99) mg/dl Estimat Average Glucose mg/dl Hemoglobin A1c (4.5-5.6) % Calcium 9.8 (8.6-10.3) mg/dl POC Ioniz Calcium Justin 1.17 (1.12-1.32) mmol/l Magnesium 2.0 (1.7-2.4) mg/dl Total Bilirubin 0.5 (0.2-1.0) mg/dl AST 19 (13-39) U/L ALT 18 (7-52) U/L Alkaline Phosphatase 71 (34-104) U/L Troponin I High Sens < 2.3 (0-14) pg/ml Total Protein 8.3 (6.0-8.3) gm/dl Albumin 4.9 (3.4-5.0) gm/dl Globulin 3.4 (2.5-4.0) gm/dl Albumin/Globulin Ratio 1.4 (0.9-2) Triglycerides (0-150) mg/dl Cholesterol (0-200) mg/dl LDL Cholesterol, Calc mg/dl VLDL Cholesterol, Calc (0-30) mg/dl HDL Cholesterol mg/dl Cholesterol/HDL Ratio (0-5) Vitamin B12 681 (180-914) pg/ml TSH 2.460 (0.300-4.500) uIu/ml Urine Color Urine Appearance (Clear) Urine pH (4.5-7.5) Ur Specific [place] (1.000-1.030) Urine Protein (Negative) Urine Glucose (UA) (Negative) Urine Ketones (Negative) Urine Blood (Negative) Urine Nitrite (Negative) Urine Bilirubin (Negative) Urine Urobilinogen (Negative) Ur Leukocyte Esterase (Negative) POC Ur Test (NEG) Salicylates < 3.0 L (3.0-30) mg/dl Urine Opiates Screen (Neg) Ur Methadone, Qual (Neg) Acetaminophen < 3 L (10-30) ug/ml Urine Barbiturates (Neg) Ur Phencyclidine (PCP) (Neg) U Amphetamin/Meth Scrn (Neg) MDMA (Ecstasy) Screen (Neg) U Benzodiazepines Scrn (Neg) Ur Cocaine Metabolite (Neg) U Marijuana (THC) Screen (Neg) Lyme Disease IgG Ab (Negative) Lyme IgG (Western Blot) Lyme IgG 18 kDa Band Lyme IgG 23 kDa Band Lyme IgG 28 kDa Band Lyme IgG 30 kDa Band Lyme IgG 39 kDa Band Lyme IgG 41 kDa Band Lyme IgG 45 kDa Band Lyme IgG 58 kDa Band Lyme IgG 66 kDa Band Lyme IgG 93 kDa Band Lyme IgM Ab (WB) Lyme Disease IgM Ab (Negative) Lyme IgM 23 kDa Band Lyme IgM 39 kDa Band Lyme IgM 41 kDa Band 05/12/23 Range/Units 12:15 WBC (4.8-10.8) K/ul RBC (4.20-5.40) M/uL Hgb (12.0-16.0) g/dl POC Hgb (12.0-16.0) g/dl Hct (37.0-47.0) % POC Hct (37-47) % MCV (80.0-100.0) fL MCH (25.0-34.0) pg MCHC (32.0-36.0) g/dL RDW Std Deviation (36.4-46.3) fL RDW Coeff of Nita (11.5-14.5) % Plt Count (130-400) K/uL MPV (9.4-12.4) fL Immature Gran % (Auto) % Neut % (Auto) % Lymph % (Auto) % Schley % (Auto) % Eos % (Auto) % Baso % (Auto) % Neut # (Auto) (1.40-6.50) K/uL Lymph # (Auto) (1.20-3.40) K/uL Schley # (Auto) (0.11-0.59) K/uL Eos # (Auto) (0.00-0.50) K/uL Baso # (Auto) (0.00-0.20) K/uL Immature Gran # (Auto) (0.01-0.20) K/uL PT (9.0-12.0) Seconds INR (0.9-1.1) APTT (21-31) Seconds PTT Ratio POC Sodium (135-144) mmol/L Sodium (136-145) mmol/L POC Potassium (3.3-5.0) mmol/L Potassium (3.5-5.1) mmol/L POC Chloride (101-112) mmol/L Chloride (98-107) mmol/L Carbon Dioxide (21-32) mmol/L POC Total CO2 (24-31) mmol/L Anion Gap (3-11) POC Anion Gap (16-25) mmol/L POC BUN (7-18) mg/dl BUN (6-23) mg/dl Creatinine (0.6-1.2) mg/dl POC Creatinine (0.6-1.3) mg/dl Est Cr Clr Drug Dosing ml/min Est GFR ( Amer) ml/min Est GFR (Non-Af Amer) ml/min BUN/Creatinine Ratio (10-20) Glucose (70-99(Fasting)) mg/dl POC Glucose (70-99) mg/dl POC Glucose (other) (70-99) mg/dl Estimat Average Glucose mg/dl Hemoglobin A1c (4.5-5.6) % Calcium (8.6-10.3) mg/dl POC Ioniz Calcium Justin (1.12-1.32) mmol/l Magnesium (1.7-2.4) mg/dl Total Bilirubin (0.2-1.0) mg/dl AST (13-39) U/L ALT (7-52) U/L Alkaline Phosphatase (34-104) U/L Troponin I High Sens (0-14) pg/ml Total Protein (6.0-8.3) gm/dl Albumin (3.4-5.0) gm/dl Globulin (2.5-4.0) gm/dl Albumin/Globulin Ratio (0.9-2) Triglycerides (0-150) mg/dl Cholesterol (0-200) mg/dl LDL Cholesterol, Calc mg/dl VLDL Cholesterol, Calc (0-30) mg/dl HDL Cholesterol mg/dl Cholesterol/HDL Ratio (0-5) Vitamin B12 (180-914) pg/ml TSH (0.300-4.500) uIu/ml Urine Color Urine Appearance (Clear) Urine pH (4.5-7.5) Ur Specific [place] (1.000-1.030) Urine Protein (Negative) Urine Glucose (UA) (Negative) Urine Ketones (Negative) Urine Blood (Negative) Urine Nitrite (Negative) Urine Bilirubin (Negative) Urine Urobilinogen (Negative) Ur Leukocyte Esterase (Negative) POC Ur Test NEG (NEG) Salicylates (3.0-30) mg/dl Urine Opiates Screen (Neg) Ur Methadone, Qual (Neg) Acetaminophen (10-30) ug/ml Urine Barbiturates (Neg) Ur Phencyclidine (PCP) (Neg) U Amphetamin/Meth Scrn (Neg) MDMA (Ecstasy) Screen (Neg) U Benzodiazepines Scrn (Neg) Ur Cocaine Metabolite (Neg) U Marijuana (THC) Screen (Neg) Lyme Disease IgG Ab (Negative) Lyme IgG (Western Blot) Lyme IgG 18 kDa Band Lyme IgG 23 kDa Band Lyme IgG 28 kDa Band Lyme IgG 30 kDa Band Lyme IgG 39 kDa Band Lyme IgG 41 kDa Band Lyme IgG 45 kDa Band Lyme IgG 58 kDa Band Lyme IgG 66 kDa Band Lyme IgG 93 kDa Band Lyme IgM Ab (WB) Lyme Disease IgM Ab (Negative) Lyme IgM 23 kDa Band Lyme IgM 39 kDa Band Lyme IgM 41 kDa Band Medications Administered Current Inpatient Medications Acetaminophen (Acetaminophen 325 Mg Tab) 650 mg PO Q4H PRN PRN Reason: Pain or Fever Stop: 06/11/23 18:04 Last Admin: 05/12/23 19:37 Dose: 650 mg Bupropion HCl (Bupropion Xl 150 Mg Tabcr) 150 mg PO [facility] Stop: 06/12/23 08:59 Cyanocobalamin (Cyanocobalamin (B-12) 500 Mcg Tablet) 1,000 mcg PO [facility] Stop: 06/12/23 08:59 Doxycycline Hyclate 100 mg/ (Dextrose) 100 mls @ 50 mls/hr IV Q12H [facility] Stop: 05/23/23 05:29 Last Admin: 05/13/23 06:29 Dose: 50 mls/hr Ceftriaxone Sodium 2,000 mg/ (Dextrose) 50 mls @ 100 mls/hr IV Q24H [facility]; Protocol Stop: 05/23/23 05:29 Last Infusion: 05/13/23 07:19 Dose: Infused Sodium Chloride (Nss) 1,000 mls @ 80 mls/hr IV .[id number] [facility] Stop: 06/12/23 07:44 Ketorolac Tromethamine (Ketorolac Tromethamine 15 Mg/Ml Vial) 15 mg IV Q6H PRN PRN Reason: Mod-Sev Pain (Scale 4-10) Miscellaneous Information (Pharmacist Discharge Med Rec Consult) 1 each N/A UD PRN PRN Reason: Consult Stop: 06/11/23 18:04 Ondansetron HCl (Ondansetron Inj 2 Mg/Ml 2 Ml Vial) 4 mg IV Q6H PRN PRN Reason: Nausea Stop: 06/11/23 18:04 Last Admin: 01/04/24 06:35 Dose: 4 mg Pantoprazole Sodium (Pantoprazole 40 Mg Tab) 40 mg PO HS [facility] Stop: 06/11/23 20:59 Last Admin: 05/12/23 21:43 Dose: 40 mg Polyethylene Glycol (Polyethylene (Miralax) 17 Gm Pack) 17 gm PO DAILY PRN PRN Reason: Constipation Stop: 06/11/23 18:04
[2023-05-13] MEDS ORDERED: CYANOCOBALAMIN (B-12) 500 MCG TABLET PO SCH (09:00)
[2023-05-13] MEDS ORDERED: buPROPion XL 150 MG TABCR PO SCH (09:00)
--- NOTE | 2023-05-13 14:03 | Neurology Consultation ---
Date of Consultation May 13, 2023 Assessment & Plan (1) Headache: Presentation yesterday with progression of unilateral headache with visual changes and parasthesias is most consistent with a migraine with aura. This is likely a first time migraine. No concern for seizure, lyme+ is presumed incidental as it would not classically fit this presentation. MRI is otherwise unremarkable. No further neurologic workup. Can follow-up with neurology should she continue to have headaches, otherwise PCP follow-up is appropriate. Telehealth Consultation Telehealth Information Telehealth Information: I performed this visit using a real-time telehealth connection between my location and the patients location ([facility]). After connecting through interactive tele-video, patient was identified by name and date of and/or wristband check.Patient (or authorized healthcare computer help desk representative) was informed that this was a telemedicine visit and it was being conducted confidentially over secure lines. My office door was closed and no one else was present in the room with me.Patient (or authorized healthcare computer help desk representative) provided consent to proceed with the visit, expressed an unders tanding of privacy and security of the telemedicine visit, and gave permission to have a hospital computer help desk representative in the room in order to assist with the visit and to conduct portions of the visit, as needed. I informed the patient (or authorized healthcare computer help desk representative) that I reviewed their record and presented the opportunity for them to ask any questions regarding the visit today. The patient agreed to participate. History of Present Illness Reason for Consultation: Headache, blurred vision Requesting Physician: Dr. Peacock Attending Physician: Cirilo Peacock MD History of Present Illness Ewelina Reyes is a 28 yo F presenting with an episode of R sided headache, blurred vision and parasthesias in the hands. She did have an episode of twitching of her face and generalized weakness but no clear seizure activity and no loss of consciousness. Today she reports that her headache has resolved and she feels back to normal. Never had a history of headaches like this in the past, no migraine diagnosis. Has not been taking estrogen BC since November. Allergies Allergy/AdvReac Type Severity Reaction Status Date / Time amoxicillin AdvReac Vomiting Verified 06/24/22 17:42 Home Medications Medication Instructions Recorded Confirmed Type celecoxib 200 mg capsule 200 mg PO HS 06/24/22 05/12/23 History bupropion HCl 150 mg 24 hr tablet, 150 mg PO QAM 05/12/23 05/12/23 History extended release cyanocobalamin (vitamin B-12) 1,000 mcg PO QAM 05/12/23 05/12/23 History 1,000 mcg tablet linaclotide 145 mcg capsule 145 mcg PO QAM PRN Constipation 05/12/23 05/12/23 History (Linzess) pantoprazole 20 mg tablet,delayed 20 mg PO HS 05/12/23 05/12/23 History release Patient History Medical History Chronic constipation Depression GERD (gastroesophageal reflux disease) Normal colonoscopy Surgical History H/O endoscopy [place] teeth extracted H/O dilation and curettage Hx of appendectomy Family History Grandmother (Maternal) Stroke Social History Smoking Status: Never smoker Second Hand Exposure: No; Do You Dip or Chew Tobacco: No; Hx Alcohol Use: No Hx Substance Use: No Preferred Language: Tamazight Communication Ability: Effective Enrollment Coordinator Required: No Beliefs That Will Affect Care: None marital status: Single Current Living Situation: Spouse and Family Current Living Situation Comment: [facility] with FOB Other Information That Helps Us Care for You: No Feels Safe at Home: Yes Assistive Devices: None Review of Systems +R sided headache, weakness Physical Exam Neurological Examination: Mental Status: Awake and alert. Oriented to person, place, and time. Fluent. Comprehension intact. Affect appropriate. Cranial Nerves: II: pineda grossly intact. III/IV/: Versions intact without nystagmus, no gaze preference. VII: Facial expression symmetric VIII: Hearing intact to voice Motor: Strength was symmetric and antigravity throughout. Pronator drift was absent. There were no abnormal movements. Sensory: Sensation to light touch was intact. Coordination: Finger to nose was intact. Results & Data Vital Signs (Past 12 Hours) Vital Signs Temp Pulse Pulse Resp BP Pulse Ox O2 Del Method 05/13/23 09:51 Room Air 05/13/23 07:34 36.8 C 71 16 109/75 100 Room Air 05/13/23 07:29 77 05/13/23 04:00 36.7 C 83 18 117/73 99 Room Air Laboratory Results Abnormal lab results 05/12/23 05/12/23 05/13/23 Range/Units 12:19 21:06 05:55 RBC 4.18 L (4.20-5.40) M/uL Lamb # (Auto) 0.66 H (0.11-0.59) K/uL Salicylates < 3.0 L (3.0-30) mg/dl Acetaminophen < 3 L (10-30) ug/ml Lyme Disease IgM Ab Positive A (Negative) Diagnostic Findings MRI brain - Unremarkable
--- NOTE | 2023-05-13 14:26 | Electrocardiogram Report ---
Test Reason : Blood Pressure : / mmHG Vent. Rate : 074 BPM Atrial Rate : 074 BPM P-R Int : 146 ms QRS Dur : 070 ms QT Int : 410 ms P-R-T Axes : 052 065 053 degrees QTc Int : 455 ms Normal sinus rhythm Normal ECG When compared with ECG of 12-MAY-2023 12:14, No significant change was found Confirmed by Jb Benjamin ([id number]) on 05/13/2023 2:26:38 PM Referred By: REFERRED SELF Confirmed By:Jb Benjamin
[2023-05-13] MEDS ORDERED: STROKE PATIENT DISCHARGE STA (14:50)
--- NOTE | 2023-05-13 14:50 | Electroencephalogram ---
EEG Procedure Note Date of Service May 13, 2023 Start / End Times Start Time: 10:03 End Time: 10:23 Referring Physician Martha Huber History A 28-year-old female with tremors and headache. EEG performed for evaluation of epileptiform activity. Home Medication List Medication Instructions Recorded Confirmed Type celecoxib 200 mg capsule 200 mg PO HS 06/24/22 05/12/23 History bupropion HCl 150 mg 24 hr tablet, 150 mg PO QAM 05/12/23 05/12/23 History extended release cyanocobalamin (vitamin B-12) 1,000 mcg PO QAM 05/12/23 05/12/23 History 1,000 mcg tablet linaclotide 145 mcg capsule 145 mcg PO QAM PRN Constipation 05/12/23 05/12/23 History (Linzess) pantoprazole 20 mg tablet,delayed 20 mg PO HS 05/12/23 05/12/23 History release doxycycline hyclate 100 mg capsule 100 mg PO BID 10 days #20 caps 05/13/23 Rx Inpatient Medication List Acetaminophen (Acetaminophen 325 Mg Tab) 650 mg PO Q4H PRN PRN Reason: Pain or Fever Stop: 06/11/23 18:04 Last Admin: 05/12/23 19:37 Dose: 650 mg Documented By: MED Bupropion HCl (Bupropion Xl 150 Mg Tabcr) [facility] [place] [place] Stop: 06/12/23 08:59 Last Admin: 05/13/23 09:29 Dose: 150 mg Documented By: TMP Cyanocobalamin (Cyanocobalamin (B-12) 500 Mcg Tablet) 1,000 mcg PO QAM [facility] Stop: 06/12/23 08:59 Last Admin: 05/13/23 09:29 Dose: 1,000 mcg Documented By: TMP Doxycycline Hyclate 100 mg/ (Dextrose) 100 mls @ 50 mls/hr IV Q12H [facility] Stop: 05/23/23 05:29 Last Infusion: 05/13/23 08:44 Dose: Infused Documented By: Admin: 05/13/23 06:29 Dose: 50 mls/hr Documented By: SDAngelica Ceftriaxone Sodium 2,000 mg/ (Dextrose) 50 mls @ 100 mls/hr IV Q24H [facility]; Protocol Stop: 05/23/23 05:29 Last Infusion: 05/13/23 07:19 Dose: Infused Documented By: Admin: 05/13/23 06:29 Dose: 100 mls/hr Documented By: TEAA Sodium Chloride (Nss) 1,000 mls @ 80 mls/hr IV .[id number] [facility] Stop: 06/12/23 07:44 Last Admin: 05/13/23 08:44 Dose: 80 mls/hr Documented By: TMP Ondansetron HCl (Ondansetron Inj 2 Mg/Ml 2 Ml Vial) 4 mg IV Q6H PRN PRN Reason: Nausea Stop: 06/11/23 18:04 Last Admin: 05/13/23 06:35 Dose: 4 mg Documented By: TEAA Pantoprazole Sodium (Pantoprazole 40 Mg Tab) 40 mg PO HS [facility] Stop: 06/11/23 20:59 Last Admin: 05/12/23 21:43 Dose: 40 mg Documented By: MED Discontinued Medications Acetaminophen/Butalbital/Caffeine (Butalbital/Acetamin/Caffeine Tab) 2 tab PO NOW STA Stop: 05/12/23 21:14 Last Admin: 05/12/23 21:45 Dose: 2 tab Documented By: MED Ibuprofen (Ibuprofen 800 Mg Tab) 800 mg PO NOW STA Stop: 05/12/23 17:39 Last Admin: 05/12/23 17:57 Dose: 800 mg Documented By: [place] Ioversol (Optiray 320 125ml) 115 ml IV ONCE ONE Stop: 05/12/23 12:34 Last Admin: 05/12/23 12:27 Dose: 115 ml Documented By: BROCK Description This is a 21 electrode EEG with a single channel dedicated to limited EKG. The electrodes were placed in accordance with the International 10-20 system. REPORT: At the onset of the EEG the patient is awake. The background is symmetric and continuous. There is a normal anterior to posterior gradient. The posterior dominant rhythm is 11 Hz. Anteriorly there is low amplitude beta activity. Photic stimulation does not induce any abnormalities. No stage 2 sleep transients are seen. Drowsiness is characterized by increased theta activity, reduced blink rate, decreased myogenic artifact. Interpretation IMPRESSION: This is a normal awake and drowsy routine EEG. There is no evidence of epileptiform activity.
--- NOTE | 2023-05-13 15:04 | Discharge Summary ---
Date of Service May 13, 2023 Admission HPI Per Admitting Provider Patient is a 28-year-old female with PMH GERD, chronic constipation, depression presented to ER with complaint of DUKE, blurry vision right eye today. History obtained from patient and outpatient chart review. Patient states today was at work sitting at her desk around 10 AM when she developed sharp pain behind right eye with associated blurry vision. Patient states symptoms seem to resolve and then around 11 AM she was talking on the phone with a coworker when she had blurry vision in her right eye again with pain behind right eye and then developed generalized headache. Patient also reports she developed twitching of left side of face, felt like bilateral upper and lower arms were weak. Reports bilateral finger tingling. Patient states was awake and alert throughout entire thing. Denies any loss of consciousness or dizziness. Denies complete vision loss. Denies eye pain, eye redness. 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 Denies increased stress or increased depression symptoms. Denies history migraine DUKE or seizure disorder. Denies recent illness. Denies fever/chills, diaphoresis, V/D/C, dizziness, syncope, diplopia, neck pain, CP, SOB, orthopnea, palpitations, cough, sore throat, choking, otalgia, rhinorrhea, abdominal pain, extremity edema, rashes, urinary symptoms. Admission Exam Per Admitting Provider General: no acute distress, WDWN Head: normocephalic, atraumatic Eyes: PERRL, EOM's intact, conjunctiva non-injected, anicteric ENT: normal inspection external ears, nose, mucous membranes moist. no facial or temporal tenderness to palpation Neck: supple, trachea midline, ROM intact Lungs: clear, no respiratory distress, no wheezing/rhonchi/rales CV: RRR, no murmur, no pretibial edema Abd: normal BS, soft, non-tender Ext: no cyanosis, no calf tenderness Neuro: A&O x 3, slightly anxious affect. Visual pineda intact with reported blurry vision with left lateral gaze. PERRL. EOMs intact. No nystagmus. Facial sensation is intact and symmetric, The face is strong and symmetric except no forehead wrinkling with eyebrow raise as pt receives botox, +twitching noted left side of mouth and left cheek intermittently, Hearing grossly intact, soft palate elevates symmetrically, no dysarthria, shoulder shrug intact, Tongue is midline, normal movement, no fasciculations, Muscle tone normal. Skin: warm, dry Principal Diagnosis Migraine with aura Stroke-like symptoms Discharge Exam General: WDWN young F in NAD Head: normocephalic, atraumatic Eyes: PERRL, EOM's intact, conjunctiva non-injected, anicteric ENT: normal inspection external ears, nose, mucous membranes moist Neck: supple, ROM intact Lungs: clear, no respiratory distress, no wheezing/rhonchi/rales CV: RRR, no murmur, no pretibial edema Abd: normal BS, soft, non-tender Ext: no edema, moves extremities Neuro: A&O x 3, PERRL. EOMs intact. no dysarthria, no facial asymmetry, speech fluent, moves extremities Skin: warm, dry Discharge Data Allergies Allergy/AdvReac Type Severity Reaction Status Date / Time amoxicillin AdvReac Vomiting Verified 06/24/22 17:42 Consultations 05/12/23 15:11 ED Decision to Admit Stat 05/12/23 16:17 Consult Neurology Routine Ordered Studies 05/12/23 11:57 CT angio head w con Stat CT angio neck with con Stat CT head/brain wo con Stat FINDINGS: Brain parenchyma: The brain parenchyma is normal in appearance. There is no hemorrhage, mass effect, or evidence of acute territorial ischemia by CT criteria. There is no evidence of enhancing mass lesion on the angiogram phase images. The ventricles, sulci, and cisterns are normal in configuration. Jin- white matter differentiation is preserved. No extra-axial fluid collection is seen. Thoracic aorta: Visualized portions of the thoracic aorta are normal in caliber. The aortic arch demonstrates standard 3-vessel anatomy. Right carotid arterial system: The right common carotid artery is widely patent, as are the right internal and external carotid arteries. Left carotid arterial system: The left common carotid artery is widely patent, as are the left internal and external carotid arteries. Vertebral arteries: The vertebral arteries are widely patent bilaterally and codominant. Subclavian arteries: Widely patent bilaterally. Intracranial vasculature: The internal carotid arteries are patent at the skull base, as are the anterior and middle cerebral arteries bilaterally. The vertebrobasilar system and posterior cerebral arteries are widely patent. The vertebral arteries are codominant. There is a right posterior communicating artery. There is no aneurysm, high-grade stenosis, or focal vessel cut off seen throughout the intracranial circulation. Jugular veins: Patent bilaterally. Dural sinuses: Patent. Lung apices: Partially visualized upper lobe lung parenchyma appears clear. Soft tissues: The visualized pharyngeal soft tissues are normal in appearance noting angiographic phase technique. The oropharyngeal airway appears widely patent. The salivary and thyroid glands are normal in appearance. No cervical lymphadenopathy is seen. Skeletal structures: The calvarium appears intact. The cervical spine is within normal limits. Orbits: The bony orbits are intact. Orbital contents are normal as visualized. Sinuses and mastoids: There is mild mucosal thickening within the maxillary antra. Trace because of thickening is noted in the right sphenoid sinus. The mastoid air cells are well pneumatized. IMPRESSION: 1. No acute intracranial abnormality. 2. Unremarkable CT angiogram of the brain. 3. Unremarkable CT angiogram of the neck. 05/12/23 14:05 MRI Brain [MR brain wo con] Stat FINDINGS: No restricted diffusion. No acute intracranial hemorrhage, midline shift, abnormal extra-axial collection, hydrocephalus or intra-axial mass. No pathologic blooming artifact. Normal volume and signal characteristics of the brain parenchyma. The cerebral venous sinuses and major arterial flow voids appear patent. The skull, orbits and soft tissues are unremarkable. Mastoid air cells are clear. Mild to moderate mucosal thickening of the paranasal sinuses. IMPRESSION: Unremarkable MRI of the brain. Hospital Course (1) Change in vision: (2) Tremulousness: (3) Headache: Migraine with aura Patient is a 28-year-old female with PMH GERD, chronic constipation, depression presented to ER with complaint of initial pain behind right eye with blurry vision right eye followed by frontal DUKE with continued blurry vision right eye with associated paresthesias bilateral hands, reported weakness upper and lower extremities In ER vitals stable. No leukocytosis, no significant electrolyte abnormality. Negative urine . Negative urine drug screen. CT Head: No acute intracranial abnormality. CTA Head and chest: Unremarkable CT angiogram of the brain. Unremarkable CT angiogram of the neck. MRI Brain unremarkable DDX: CVA, seizure, atypical migraine, temporal arteritis, and others less likely suspect CVA at this time. lower suspicion for seizure as pt A&O throughout course. No temporal tenderness to palpation Patient had telestroke neurology evaluation in ER and no thrombolytics recommended Admitting provider spoke with ophthalmology and suggests follow up with Dr Moran office outpatient TSH 2.46 wnl, B12 681 wnl EEG- IMPRESSION: This is a normal awake and drowsy routine EEG. There is no evidence of epileptiform activity. Lyme disease panel obtained - IgM positive and pt was started on abx overnight. The rest of the panel is currently pending. Follow up as outpt. Will discharge on doxycycline. Neurology consulted (Dr. Garcia) - Presentation yesterday with progression of unilateral headache with visual changes and parasthesias is most consistent with a migraine with aura. This is likely a first time migraine. No concern for seizure, lyme+ is presumed incidental as it would not classically fit this presentation. MRI is otherwise unremarkable. No further neurologic workup. Can follow-up with neurology should she continue to have headaches, otherwise PCP follow-up is appropriate. (4) Depression: Continue bupropion (5) GERD (gastroesophageal reflux disease): Continue PPI (6) Chronic constipation: Miralax prn. Continue Linzess prn Total Time Total Time Spent Total Time Spent (In Minutes): 40 Discharge Plan Discharge Items Patient Disposition: Home - Self-Care Reason For Visit: DUKE, NEURO SYMPTOMS Discharge Diagnosis: Migraine with aura Stroke-like symptoms Activity: Per Instructions section Non-emergency contact: Primary Care Provider and Neurologist Call non-emergency contact if: you have any medication questions and your symptoms worsen Follow-up/Referrals: Lidia Mcgovern PA-C [Physician Manufacturing Business Analyst] - (Date & Time 06/23/2023 11:20 AM Provider Lidia Mcgovern PA-C Department Neurology [facility] ) Saleem Mccray DO [Primary Care Provider] - Diet: Regular Addtl Attending Provider Instructions: Follow up with your primary care doctor and neurologist. It is recommended that you follow up with your primary care doctor within 1 week. You may need to see ophthalmology - Dr. Moran office or other clinic. Take antibiotic - doxycycline - as prescribed. Pending Studies at Discharge: Yes Studies:: Lyme dis. panel Stand-Alone Forms: Sandbox, Smoking Cessation Medications and DC Order Prescriptions: New doxycycline hyclate 100 mg capsule 100 mg PO BID 10 Days Qty: 20 0RF Continued celecoxib 200 mg capsule 200 mg PO HS cyanocobalamin (vitamin B-12) 1,000 mcg tablet 1,000 mcg PO QAM pantoprazole 20 mg tablet,delayed release (DR/EC) 20 mg PO HS bupropion HCl 150 mg tablet extended release 24 hr 150 mg PO QAM Linzess 145 mcg capsule 145 mcg PO QAM PRN (Reason: Constipation) Discharge Orders: Discharge Order (Routine); Ordered 05/13/23 Ordered By: Cirilo Peacock Admission Data Admit Date/Time: 05/12/23 16:17 Attending Provider: Cirilo Peacock Admit Provider: Teresa June Primary Care Provider: Saleem Mccray Other Providers: Teresa June; Sal Garcia
[2023-05-17 14:58] LABS: 18KDIGG Band REACTIVE; 23KDIGG Band NON-REACTIVE; 23KDIGM Band NON-REACTIVE; 28KDIGG Band NON-REACTIVE; 30KDIGG Band NON-REACTIVE; 39KDIGG Band NON-REACTIVE; 39KDIGM Band NON-REACTIVE; 41KDIGG Band REACTIVE; 41KDIGM Band NON-REACTIVE; 45KDIGG Band NON-REACTIVE; 58KDIGG Band NON-REACTIVE; 66KDIGG Band NON-REACTIVE; 93KDIGG Band NON-REACTIVE; Lyme Antibodies, WB IgG NEGATIVE (NEGATIVE); Lyme Antibodies, WB IgM NEGATIVE (NEGATIVE)
== END 2023-05-13 16:21 | disposition home or self-care (01) ==
LOC: EDINP 11:49 → ED 11:49 → SUATTDRO 16:17 → 2N 05-13

== ENCOUNTER 2024-08-21 13:48 | Inpatient (IN) ==
[2024-08-22] MEDS ORDERED: OXYTOCIN 30 UNITS/NSS 30 UNITS/500 ML BAG IV PRN ×2 (09:08→19:50)
[2024-08-22] MEDS ORDERED: LIDOCAINE 1% LOCAL 20 ML VIAL INFIL PRN (09:08)
[2024-08-22] MEDS: miSOPROStoL 50 MCG TAB PO ONE (09:21)
[2024-08-22 09:33] LABS: Hematocrit (blood only) 35.9 % (37.0-47.0); Hemoglobin 12.4 g/dl (12.0-16.0); Mean Corpuscular Hemoglobin 31.2 pg (25.0-34.0); Mean Corpuscular Hgb Conc 34.5 g/dL (32.0-36.0); Mean Corpuscular Volume 90.2 fL (80.0-100.0); Mean Platelet Volume 9.9 fL (9.4-12.4); Platelet Count 153 K/uL (130-400); RDW Coefficient of Variation 13.7 % (11.5-14.5); RDW Standard Deviation 45.1 fL (36.4-46.3); Red Blood Count 3.98 M/uL (4.20-5.40); White Blood Count 8.63 K/ul (4.8-10.8)
[2024-08-22] MEDS: LACTATED RINGER'S 1,000 ML IV PRN (13:30)
[2024-08-22] MEDS: OXYTOCIN 30 UNITS/NSS 30 UNITS/500 ML BAG IV PRN (13:30)
--- NOTE | 2024-08-22 13:50 | Anesthesiology Consultation ---
Date of Service August 22, 2024 Assessment & Plan ASA ASA2 Proposed Anesthesia Anesthesia Type: Labor Epidural Risk / Benefits Reviewed With: PT / POA / Parent / Guardian, Accepts Plan and Informed Consent Obtained History Height/Weight Height: 5 ft 6 in Weight: 81.647 kg Allergies Allergy/AdvReac Type Severity Reaction Status Date / Time amoxicillin AdvReac Vomiting Verified 08/08/24 15:52 Medications Home Medications Medication Instructions Recorded Confirmed Last Taken pantoprazole 20 mg tablet,delayed 40 mg PO HS 05/12/23 08/22/24 08/21/24 release vit no.95-ferrous 1 tab PO DAILY 05/22/24 08/22/24 08/21/24 fumarate 28 mg-folic acid 800 mcg tablet () ferrous sulfate 325 mg (65 mg 325 mg PO DAILY 08/22/24 08/22/24 08/22/24 iron) tablet (Iron (ferrous sulfate)) Active Medications Generic Name Dose Route Start Last Admin Trade Name Freq PRN Reason Stop Dose Admin Lactated Ringer's 1,000 mls @ 125 mls/hr 08/22/24 09:08 08/22/24 13:30 Lr IV 08/23/24 09:07 999 mls/hr .Q8H PRN Administration L&D Protocol Protocol Oxytocin 30 units in 500 mls @ 4 mls/hr 08/22/24 09:08 08/22/24 14:00 Pitocin 30 Units/Nss IV 08/24/24 09:07 0.24 units/hr .Q24H PRN 4 mls/hr Labor Induction/Augmentation Titration Protocol 0.24 UNITS/HR Past Medical History Medical History Ovarian cyst Lyme disease 2022 Second degree heart block will follow up after Normal colonoscopy Exercise / Class Metabolic Activity II 4-5 Yardwork/Stairs/Walk up hill Past Family History Family History Grandmother (Maternal) Stroke Past Surgical History Surgical History History of cholecystectomy H/O endoscopy Oakes teeth extracted H/O dilation and curettage Hx of appendectomy Past Anesthesia History No Hx of Anesthesia Complications and No Family Hx of Anesthesia Complications History of PONV No Hx of PONV and No Hx of Motion Sickness Social History Smoking Status: Never smoker Do You Dip or Chew Tobacco: No Hx Alcohol Use: No Hx Substance Use: No substance use type: does not use Review of Systems denies fever/cough/ colds/ chest pain/ SOB/ STEFF denies STEFF Physical Exam Vital Signs Last Vital Signs Temp 36.8 C 08/22/24 07:46 Pulse 91 H 08/22/24 14:40 Resp 18 08/22/24 07:46 BP 118/74 08/22/24 14:40 Pulse Ox 99 08/22/24 14:40 ENMT Mouth: no TMJ abnormality and no dentition abnormality Thyromental Distance: > or= 3.5 Finger Breadths Mallampati Class: II Neck neck extension not limited Respiratory normal respiratory effort; no respiratory distress Auscultation: lungs clear to auscultation bilaterally Cardiovascular Rate/Rhythm: regular rate and regular rhythm Neurologic moves all extremities Psychiatric Orientation: alert and oriented x 3 Testing Laboratory Results 08/22/24 09:15
[2024-08-22] MEDS: BUPIVACAINE 0.25% PF 30 ML VIAL ONE (14:32)
[2024-08-22] MEDS: LIDOCAINE 2%/EPINEPHRINE 1:200,000 20 ML PF ONE (14:32)
[2024-08-22] MEDS: fentaNYL citrate PF 100 MCG/2 ML VIAL ONE (14:37)
[2024-08-22] MEDS: fentANYL 2 MCG/ML BUPIVacaine 0.125%-NSS 100ML BAG ONE (14:38)
[2024-08-22] MEDS ORDERED: BUPIVACAINE 0.25% PF 30 ML VIAL EPI PRN (14:45)
[2024-08-22] MEDS ORDERED: NALOXONE HCL 0.4 MG/1 ML VIAL/CARP IV PRN (14:45)
[2024-08-22] MEDS ORDERED: LIDOCAINE 2% MPF LOCAL 5 ML VIAL EPI PRN (14:45)
[2024-08-22] MEDS ORDERED: diphenhydrAMINE 50 MG/ML VIAL IV PRN (14:45)
[2024-08-22] MEDS ORDERED: NALBUPHINE HCL INJ 10 MG/ML AMP IV PRN (14:45)
[2024-08-22] MEDS ORDERED: NALOXONE HCL 1 MG in SODIUM CHLORIDE 0.9% 1,000 ML IV PRN (14:45)
[2024-08-22] MEDS ORDERED: fentaNYL citrate PF 100 MCG/2 ML VIAL EPI PRN (14:45)
[2024-08-22] MEDS ORDERED: ROPIVACAINE 0.5% PF 5 MG/ML 20 ML VIAL EPI PRN (14:45)
[2024-08-22] MEDS ORDERED: ePHEDrine sulfate 50 MG/ML AMP IV PRN (14:45)
[2024-08-22] MEDS ORDERED: SODIUM CHLORIDE 0.9% PF INJ 10 ML VIAL EPI PRN (14:45)
[2024-08-22] MEDS ORDERED: fentANYL 2 MCG/ML BUPIVacaine 0.125%-NSS 100ML BAG EPI PRN (14:45)
[2024-08-22] MEDS: ONDANSETRON INJ 2 MG/ML 2 ML VIAL ONE (17:42)
[2024-08-22] MEDS: ePHEDrine sulfate 50 MG/ML AMP ONE (18:17)
[2024-08-22] MEDS: SODIUM CHLORIDE 0.9% PF INJ 10 ML VIAL EPI STA (18:18)
[2024-08-22] MEDS: SODIUM CHLORIDE 0.9% PF INJ 10 ML VIAL ONE (18:18)
[2024-08-22] MEDS: LIDOCAINE 2%/EPINEPHRINE 1:200,000 20 ML PF EPI STA (18:18)
[2024-08-22] MEDS: BUPIVACAINE 0.25% PF 30 ML VIAL EPI STA (18:18)
[2024-08-22] MEDS: fentaNYL citrate PF 100 MCG/2 ML VIAL EPI STA (18:18)
[2024-08-22] MEDS: METHYLERGONOVINE MALEATE 0.2 MG/ML AMP IM ONE (19:47)
[2024-08-22] MEDS: miSOPROStoL 200 MCG TAB PR ONE (19:47)
[2024-08-22] MEDS ORDERED: bisacodyL 10 MG SUPP PR PRN (19:50)
[2024-08-22] MEDS ORDERED: DIPHTHER/TETAN/PERTUS Vaccine (Tdap, Adol/Adult) 0.5mL IM ONE (19:50)
[2024-08-22] MEDS ORDERED: HYDROCORTISONE ACETATE 25 MG SUPP PR PRN (19:50)
--- NOTE | 2024-08-22 19:52 | Delivery Summary ---
Vaginal Delivery Summary Date of Service August 22, 2024 Vaginal Delivery Summary DELIVERY NOTE Patient delivered a live infant male in left occiput anterior presentation there was one nuchal cord which was easily reduced. Infant was delivered and placed on mother's abdomen. Delayed cord clamping was performed. Cord blood is obtained Cord gasses are not obtained Meconium is absent Placenta is spontaneously delivered. Placenta appears grossly normal and has 3 vessel cord Inspection of the perineum showed a firstdegree midline laceration. Laceration is repaired in layers with 2-0 Vicryl Rectal exam post repair showed good sphincter tone no sutures palpated in the rectum. Quantitative blood loss is 50 cc per Infants weight and scores are in the pediatric record Mother and baby are stable in in the recovery
--- NOTE | 2024-08-22 20:18 | Anesthesiology Progress Note ---
Date of Service August 22, 2024 Anesthesia Post Procedure Vital Signs Vital Signs: Temp Pulse Resp BP Pulse Ox 08/22/24 20:04 88 133/79 08/22/24 19:50 92 H 99 08/22/24 19:49 93 H 124/83 08/22/24 19:45 104 H 97 08/22/24 19:40 170 H 86 L 08/22/24 19:38 162 H 82 L 08/22/24 19:35 93 H 102/60 99 08/22/24 19:33 86 84 L 08/22/24 19:30 69 95 08/22/24 19:25 76 97 08/22/24 19:20 64 100 08/22/24 19:19 71 107/67 08/22/24 19:18 74 86 L 08/22/24 19:15 67 100 08/22/24 19:10 67 100 08/22/24 19:08 71 108/61 08/22/24 19:05 68 100 08/22/24 19:00 36.7 C 63 18 100 08/22/24 18:55 73 98 08/22/24 18:54 83 87 L 08/22/24 18:50 97 08/22/24 18:50 65 08/22/24 18:50 65 114/67 08/22/24 18:45 62 98 08/22/24 18:40 90 99 08/22/24 18:36 85 89 L 08/22/24 18:35 87 100 08/22/24 18:34 87 122/67 08/22/24 18:30 91 H 18 93 08/22/24 18:25 90 95 08/22/24 18:20 94 H 100 08/22/24 18:19 86 103/57 L 08/22/24 18:15 78 99 08/22/24 18:10 82 99 08/22/24 18:05 78 93 08/22/24 18:00 65 18 99 08/22/24 17:55 77 100 08/22/24 17:50 69 142/67 H 97 08/22/24 17:45 75 99 08/22/24 17:40 66 98 08/22/24 17:35 70 99 08/22/24 17:30 79 18 98 08/22/24 17:25 82 100 08/22/24 17:20 86 120/71 99 04/15/25 17:15 81 99 08/22/24 17:10 81 100 08/22/24 17:05 100 08/22/24 17:05 81 08/22/24 17:05 74 114/66 08/22/24 17:01 36.8 C 08/22/24 17:00 75 18 100 08/22/24 16:55 88 98 08/22/24 16:52 84 86 L 08/22/24 16:50 85 100 08/22/24 16:45 72 100 08/22/24 16:40 78 98 08/22/24 16:35 99 08/22/24 16:35 76 08/22/24 16:35 80 122/67 08/22/24 16:30 18 08/22/24 16:30 18 08/22/24 16:30 90 08/22/24 16:30 71 08/22/24 16:30 70 83 L 08/22/24 16:25 72 96 08/22/24 16:22 78 86 L 08/22/24 16:20 96 08/22/24 16:20 73 08/22/24 16:20 76 117/73 08/22/24 16:17 75 94 08/22/24 16:15 74 99 08/22/24 16:10 94 H 100 08/22/24 16:05 69 111/71 100 08/22/24 16:00 65 100 08/22/24 15:55 66 100 08/22/24 15:50 70 100 08/22/24 15:49 71 114/69 08/22/24 15:47 85 144/92 H 94 08/22/24 15:45 103 H 100 08/22/24 15:40 85 103/61 98 08/22/24 15:37 85 107/65 08/22/24 15:35 85 99 08/22/24 15:31 83 111/64 08/22/24 15:30 87 18 98 08/22/24 15:25 97 08/22/24 15:25 92 H 08/22/24 15:25 87 112/65 08/22/24 15:22 89 111/64 08/22/24 15:20 93 H 97 08/22/24 15:15 97 H 115/68 96 08/22/24 15:11 93 H 120/72 08/22/24 15:10 95 H 96 08/22/24 15:07 100 H 121/74 08/22/24 15:05 100 H 96 08/22/24 15:01 104 H 124/73 08/22/24 15:00 100 H 18 97 08/22/24 14:56 90 123/76 08/22/24 14:55 98 H 97 08/22/24 14:51 99 H 131/74 08/22/24 14:50 18 08/22/24 14:50 18 08/22/24 14:50 88 18 98 08/22/24 14:48 18 08/22/24 14:48 18 08/22/24 14:47 90 124/67 08/22/24 14:46 18 08/22/24 14:46 18 08/22/24 14:45 98 H 99 08/22/24 14:44 80 18 118/64 08/22/24 14:42 104 H 18 126/78 08/22/24 14:40 91 H 18 118/74 99 08/22/24 14:38 93 H 18 124/75 08/22/24 14:36 36.7 C 85 18 125/73 08/22/24 14:35 90 100 08/22/24 14:31 93 H 132/84 08/22/24 14:30 92 H 100 08/22/24 14:25 97 H 100 08/22/24 14:23 114 H 89 L 08/22/24 14:20 90 99 08/22/24 13:29 85 133/82 08/22/24 07:46 36.8 C 95 H 116/83 08/22/24 07:46 36.7 C 18 Pain Intensity Lower Abdomen: Pain Intensity: 7 Transfer of Care Handoff Completed per policy Notes Mental Status: alert / awake / arousable and participated in evaluation Patient Amnestic to Procedure: Yes Nausea / Vomiting: adequately controlled Pain: adequately controlled Airway Patency, RR, SpO2: stable & adequate BP & HR: stable & adequate Hydration State: stable & adequate Anesthetic Complications: no major complications apparent and Pt Satisfied with anesthetic care
--- NOTE | 2024-08-22 20:50 | Anesthesia Procedure Note ---
Date of Service August 22, 2024 Anesthesia Post Epidural Note Vital Signs Vital Signs: Temp Pulse Resp BP Pulse Ox 36.7 C 73 18 124/82 99 08/22/24 19:00 08/22/24 20:48 08/22/24 20:33 08/22/24 20:48 08/22/24 19:50 Pain Intensity Lower Abdomen: Pain Intensity: 7 Notes Mental Status: alert / awake / arousable and participated in evaluation Nausea / Vomiting: adequately controlled Pain: adequately controlled Airway Patency, RR, SpO2: stable & adequate BP & HR: stable & adequate Hydration State: stable & adequate Neuraxial Anesthesia: was administered and sensory block resolved Anesthetic Complications: no major complications apparent and Pt Satisfied with anesthetic care Epidural: Removed without complications and With tip intact
[2024-08-23] MEDS: DOCUSATE SODIUM 100 MG CAP PO SCH (00:23)
[2024-08-23] MEDS: ACETAMINOPHEN 325 MG TAB PO PRN (02:34)
[2024-08-23 06:44] LABS: Hematocrit (blood only) 36.2 % (37.0-47.0); Hemoglobin 12.1 g/dl (12.0-16.0); Mean Corpuscular Hemoglobin 30.3 pg (25.0-34.0); Mean Corpuscular Hgb Conc 33.4 g/dL (32.0-36.0); Mean Corpuscular Volume 90.5 fL (80.0-100.0); Mean Platelet Volume 10.5 fL (9.4-12.4); Platelet Count 145 K/uL (130-400); RDW Coefficient of Variation 13.5 % (11.5-14.5); RDW Standard Deviation 44.6 fL (36.4-46.3); White Blood Count 12.44 K/ul (4.8-10.8)
[2024-08-23] MEDS: PRENATAL VITAMIN 1 TAB PO SCH (08:01)
[2024-08-23] MEDS: BENZOCAINE 20% SPRY 85 APPLN/85 GM CAN EXT PRN (08:02)
[2024-08-23] MEDS: IBUPROFEN 600 MG TAB PO PRN (08:02)
--- NOTE | 2024-08-23 08:38 | Obstetrical Progress Note ---
Date of Service August 23, 2024 Assessment & Plan Admission and Anticipated Discharge Date Admission Date: August 22, 2024 Subjective Patient is seen and examined. She feels well, no complaints. Ambulating without dizziness Voiding without difficulty Tolerating regular diet with out N&V Bleeding is minimal No fever/ chills/ CP/ SOB/ N&V/ Leg pain Breast feeding without problems Vital Signs Height Weight Body Mass Index Blood Pressure Blood Pressure Position Temperature Temperature Source 5 ft 6 in 81.647 kg 29.0 123/88 Semi-fowlers 37 C Oral 08/22/24 13:50 08/22/24 13:50 08/22/24 07:46 08/23/24 03:15 08/23/24 03:15 08/23/24 03:15 08/23/24 03:15 Pulse Rate Respiratory Rate Pulse Oximetry 80 18 96 08/23/24 03:15 08/23/24 03:15 08/23/24 03:15 Lab Results 08/22/24 08/23/24 Range/Units 09:15 06:00 WBC 8.63 12.44 H (4.8-10.8) K/ul RBC 3.98 L 4.00 L (4.20-5.40) M/uL Hgb 12.4 12.1 (12.0-16.0) g/dl Hct 35.9 L 36.2 L (37.0-47.0) % MCV 90.2 90.5 (80.0-100.0) fL MCH 31.2 30.3 (25.0-34.0) pg MCHC 34.5 33.4 (32.0-36.0) g/dL RDW Std Deviation 45.1 44.6 (36.4-46.3) fL RDW Coeff of Nita 13.7 13.5 (11.5-14.5) % Plt Count 153 145 (130-400) K/uL MPV 9.9 10.5 (9.4-12.4) fL Treponema pallidum Ab Negative (Negative) PE: General: Alert, orientedx3, NAD Abd: soft, NT, fundus firm, below Umbilicus Perineum intact, Lochia rubra minimal Ext; NT, no edema AP: 29 yo s/p , ppd# 1 VSS Afebrile doing well Continue routine care All questions were answered Desires d/c tonight after 24 hours D/C home , f/u in office Results & Data Vital Signs (Past 12 Hours) Vital Signs Temp Pulse Pulse Resp BP BP Pulse Ox 08/23/24 03:15 37 C 80 18 123/88 96 08/22/24 22:55 08/22/24 22:55 37.2 C 82 18 129/85 96 08/22/24 21:55 18 08/22/24 21:55 71 125/58 L 08/22/24 21:50 189/132 H 08/22/24 21:33 86 146/61 H 08/22/24 21:18 76 131/70 08/22/24 21:03 80 145/70 H 08/22/24 20:48 16 08/22/24 20:48 73 124/82 O2 Del Method 08/23/24 03:15 Room Air 08/22/24 22:55 Room Air 08/22/24 22:55 Room Air 08/22/24 21:55 08/22/24 21:55 08/22/24 21:50 08/22/24 21:33 08/22/24 21:18 08/22/24 21:03 08/22/24 20:48 08/22/24 20:48
[2024-08-23 14:28] VITALS: RESP 16
[2024-08-23 17:55] VITALS: BP 107/67; PULSE 72; TEMP 97.5; O2SAT 97
[2024-08-23] MEDS ORDERED: bisacodyL 5 MG TABEC PO SCH (20:00)
--- NOTE | 2024-08-24 13:22 | Coding Query ---
CODING QUERY To promote full compliance with coding requirements relating to patient care, provider participation is requested in all cases of machine stonecutter uncertainty. Please assist us with the question(s) below: Coding Question(s): Please specify below, regarding the weeks of gestation upon admission: ( x) Number of weeks of gestation upon admission was known. Please specify the number of weeks gestation__40.4 ( ) Unknown number of weeks of gestation upon admission Physician's Response(s): Thank you Abril Low Principal Diagnosis: "that condition established after study, to be chiefly responsible for occasioning the admission of the patient to the hospital for care." Co-Existing Principal Diagnosis: "when two or more diagnoses equally meet the criteria for principal diagnosis as determined by the circumstances of admission, diagnostic work up, and/or therapy provided, and the Alphabetic Index, Tabular List, or another coding guideline does not provide sequencing direction, any one of the diagnoses may be sequenced first." "When the physician has documented what appears to be a current diagnosis in the body of the record, but has not included the diagnosis in the final diagnostic statement, the physician should be asked whether the diagnosis should be added." (Source Coding [facility] 2 QTR90. p3-4) VJ
== END 2024-08-23 21:15 | disposition home or self-care (01) | DRG 807 ==
LOC: 4S1 08-22 07:38 → 4E2 08-22 22:29